=== PATIENT | female | born 1955 | race Caucasian/White ===

== ENCOUNTER → 2019-12-08 11:11 | Outpatient (BNVA) | payer MEDICARE, SELFPAY | PROVIDERS: PCP Internal Medicine; Visit Provider Orthopaedic Surgery | DX: M25.551 Pain in right hip (principal); Z96.641 Presence of right artificial hip joint; Z79.899 Other long term (current) drug therapy | CPT/HCPCS: 20610; 99214; J1100 ==

== ENCOUNTER 2019-12-10 06:27 | Day surgery (SDC) | payer MEDICARE, SELFPAY ==
[2019-12-05 09:29] VITALS: BMI 31.4
--- NOTE | 2019-12-09 08:40 | HO.ANESPROP2 ---
Documented by User: Columba Person 12/09/19 08:43 HPI - Anesthesia Eval Consult details Narrative: 64yo F for colonoscopy PMFSH Past Medical History Medical History Anxiety Arthritis Back pain Depression Elevated cholesterol Fibromyalgia GERD (gastroesophageal reflux disease) Head ache History of dysphagia History of shingles HTN (hypertension) Hx of bronchiolitis Hx of thoracic outlet syndrome Muscle spasm Surgical History Surgical History H/O excision of ganglion cyst History of right hip hemiarthroplasty History of surgery on right wrist History of total right knee replacement (TKR) Hx of colonoscopy Hx of spinal fusion Hx of tonsillectomy Social History Social History Alcohol intake: current Alcohol intake frequency: holidays/special occasions only Alcohol type: wine Smoking Status: Never smoker Use of substances other than those prescribed or required for medical reasons: No Advance Directives: No Advance Directives Information Provided: No Advance Directives on File: No Meds Allergies Allergy/AdvReac Type Severity Reaction Status Date / Time No Known Allergies Allergy Mild NONE Verified 12/08/19 11:26 Home Medications Medication Instructions Recorded Confirmed Type atorvastatin 1 tab PO DAILY 12/05/19 12/08/19 History cholecalciferol (vitamin D3) 25 mcg PO DAILY 12/05/19 12/08/19 History [Vitamin D3] diltiazem HCl 1 cap PO DAILY 12/05/19 12/08/19 History lorazepam 0.5 mg PO BID PRN 12/05/19 12/08/19 History omeprazole 20 mg PO DAILY 12/05/19 12/08/19 History paroxetine HCl 1 tab PO DAILY 12/05/19 12/08/19 History Exam Exam Date and Time: December 09, 2019 0840 Height,Weight and Vital Signs: Height 5 ft 7 in Weight 91.172 kg Pertinent Lab Results Pertinent Lab Results: Laboratory Tests 10/27/19 10/27/19 11:45 11:45 WBC 4.0 L Hgb 13.9 Hct 42.3 Plt Count 274 Sodium 141 Potassium 4.7 Chloride 106 Bicarbonate 27 BUN 14 Creatinine 0.72 Est GFR (Non-Af Amer) > 60 Assessment and Plan Assessment Anesthesia Assessment: Chart Reviewed Documented by User: Mandie Vieira 12/10/19 07:19 PMFSH Past Medical History Medical History Anxiety Arthritis Back pain Depression Elevated cholesterol Fibromyalgia GERD (gastroesophageal reflux disease) Head ache History of dysphagia History of shingles HTN (hypertension) Hx of bronchiolitis Hx of thoracic outlet syndrome Muscle spasm Surgical History Surgical History H/O excision of ganglion cyst History of right hip hemiarthroplasty History of surgery on right wrist History of total right knee replacement (TKR) Hx of colonoscopy Hx of spinal fusion Hx of tonsillectomy Social History Social History Alcohol intake: current Alcohol intake frequency: holidays/special occasions only Alcohol type: wine Smoking Status: Never smoker Use of substances other than those prescribed or required for medical reasons: No Advance Directives: No Advance Directives Information Provided: No Advance Directives on File: No Meds Allergies Allergy/AdvReac Type Severity Reaction Status Date / Time No Known Allergies Allergy Mild NONE Verified 12/08/19 11:26 Home Medications Medication Instructions Recorded Confirmed Type atorvastatin 1 tab PO DAILY 12/05/19 12/08/19 History cholecalciferol (vitamin D3) 25 mcg PO DAILY 12/05/19 12/08/19 History [Vitamin D3] diltiazem HCl 1 cap PO DAILY 12/05/19 12/08/19 History lorazepam 0.5 mg PO BID PRN 12/05/19 12/08/19 History omeprazole 20 mg PO DAILY 12/05/19 12/08/19 History paroxetine HCl 1 tab PO DAILY 12/05/19 12/08/19 History Exam Airway Mallampati Class: III TM Dist: >3cm Neck ROM: Full Heart: RRR Lungs: CTAnBL
[2019-12-10] MEDS: Lactated Ringers 1,000 ML 100 ML IVCONT (06:59)
--- NOTE | 2019-12-10 07:19 | P.CONAN_ITS ---
[facility] Past Medical History Medical History Anxiety Arthritis Back pain Depression Elevated cholesterol Fibromyalgia GERD (gastroesophageal reflux disease) Head ache History of dysphagia History of shingles HTN (hypertension) Hx of bronchiolitis Hx of thoracic outlet syndrome Muscle spasm Surgical History Surgical History H/O excision of ganglion cyst History of right hip hemiarthroplasty History of surgery on right wrist History of total right knee replacement (TKR) Hx of colonoscopy Hx of spinal fusion Hx of tonsillectomy Social History Social History Alcohol intake: current Alcohol intake frequency: holidays/special occasions only Alcohol type: wine Smoking Status: Never smoker Use of substances other than those prescribed or required for medical reasons: No Advance Directives: No Advance Directives Information Provided: No Advance Directives on File: No Meds Allergies Allergy/AdvReac Type Severity Reaction Status Date / Time No Known Allergies Allergy Mild NONE Verified 12/08/19 11:26 Home Medications Medication Instructions Recorded Confirmed Type atorvastatin 1 tab PO DAILY 12/05/19 12/08/19 History cholecalciferol (vitamin D3) 25 mcg PO DAILY 12/05/19 12/08/19 History [Vitamin D3] diltiazem HCl 1 cap PO DAILY 12/05/19 12/08/19 History lorazepam 0.5 mg PO BID PRN 12/05/19 12/08/19 History omeprazole 20 mg PO DAILY 12/05/19 12/08/19 History paroxetine HCl 1 tab PO DAILY 12/05/19 12/08/19 History Exam Exam Date and Time: December 10, [id number] Height,Weight and Vital Signs: Height 5 ft 7 in Weight 91.172 kg Assessment and Plan Assessment Anesthesia Assessment: Anesthesia Plan Discussed and Chart Reviewed Final Anesthetic Review NPO: Yes ASA Class: III Final Preanesthetic Review: No Changes in Pt Med Stat and Consent Obtained/Reviewed Patient Risk: Intermediate Procedure Risk: Low Anesthetic Plan Anesthetic Plan: MAC: Disposition: Standard PACU
--- NOTE | 2019-12-10 07:31 | MHC.SHP ---
Pre-Procedural Eval Section A The patient is an INPATIENT: No Changes since office visit: Yes Patient answered all questions; No Cold of Flu in the past 2 weeks, No New Medical Problems and No Changes in Medication The History & Physical has been completed within 30 days and I have reviewed it.: Yes Section B Chief Complaint: Colon Cancer Screening Allergies: Allergies Allergy/AdvReac Type Severity Reaction Status Date / Time No Known Allergies Allergy Mild NONE Verified 12/08/19 11:26 Plan Diagnosis/Plan: Unchanged Patient has been examined and remains a candidate for the planned procedure
[2019-12-10 08:18] VITALS: BP 111/55; PULSE 65; RESP 16; TEMP 36.6; O2SAT 97
--- NOTE | 2019-12-10 08:20 | P.OP_ITS ---
Operative Note Operative Note Narrative: Preoperative diagnosis: Colon rectal carcinoma screening Postoperative diagnosis: Diverticulosis Procedure: Colonoscopy Anesthesia: Monitored anesthesia care Estimated blood loss: None IV fluids: Per anesthesia record Immediate complications: None Specimens: None Indications this is a 64-year-old female who has no GI complaints and presents for routine screening Procedure in detail with the patient in left lateral decubitus position, time- out procedure was performed. Adequate sedation was obtained. Rectal examination was performed and was unremarkable. The flexible pediatric colonoscope was introduced and was gradually advanced through the bowel to the level of the cecum. The prep was fair to good with some solid stool and turbid liquid scattered throughout the colon. This could be irrigated away to a great extent but not completely. The cecal pouch, ileocecal valve and appendiceal orifice were inspected and appeared normal. The ileocecal valve was not intubated. The scope was slowly withdrawn, visualizing all mucosal surfaces as it was possible. The scope was retroflexed within the rectum and was then straightened and withdrawn. There was moderate diverticulosis within the sigmoid colon. No other abnormalities were identified. She tolerated the procedure well. Based upon findings, next routine colonoscopy will be due in 10 years.
[2019-12-10 08:32] VITALS: BP 128/78; PULSE 63; RESP 14; TEMP 36.6; O2SAT 99
--- NOTE | 2019-12-10 09:04 | HO.POSTANES ---
Post Anesthesia Evaluation Post Anesthesia Evaluation Vital Signs: Vital Signs Temp Pulse Resp BP Pulse Ox 12/10/19 08:32 97.8 F 63 14 128/78 99 12/10/19 08:18 97.8 F 65 16 111/55 L 97 Anesthesia: Monitored Mental Status: Awake Pain Control: Satisfactory Nausea/Vomiting: None Hydration: Adequate Anesthesia-Related Issues: No Anes. Related Issues
== END 2019-12-10 09:20 | disposition home or self-care (01) ==
PROVIDERS: PCP Internal Medicine; Visit Provider Surgery
PROC: 0DJD8ZZ Inspection of Lower Intestinal Tract, Via Natural or Artificial Opening Endoscopic (ICD-10-PCS; CPT 45378; principal; 2019-12-10 07:30)
DX: Z12.11 Encounter for screening for malignant neoplasm of colon (principal); K57.30 Diverticulosis of large intestine without perforation or abscess without bleeding; K21.9 Gastro-esophageal reflux disease without esophagitis; F32.9 Major depressive disorder, single episode, unspecified; E78.00 Pure hypercholesterolemia, unspecified; Z79.899 Other long term (current) drug therapy; Z87.891 Personal history of nicotine dependence
CPT/HCPCS: G0121

== ENCOUNTER 2019-12-26 15:12 | Outpatient (REF) | payer MEDICARE, SELFPAY | END 2019-12-26 15:13 | disposition home or self-care (01) | LOC: HO.LNP 15:12 | PROVIDERS: Visit Provider Internal Medicine | DX: Z20.828 Contact with and (suspected) exposure to other viral communicable diseases (principal) | CPT/HCPCS: U0003 ==

== ENCOUNTER 2020-04-08 12:08 | Outpatient (REF) | payer MEDICARE, SELFPAY ==
--- NOTE | ~2020-04-08 | MM_ITS ---
EXAMINATION: MM SCREENING DIGITAL BREAST TOMOSYNTHESIS, BILATERAL CLINICAL INFORMATION: Screening. Asymptomatic. The lifetime risk of breast cancer based on the Tyrer-Cuzick Model is 4.7%. COMPARISON: Mammography: November 29, 2018 and studies dating back to September 16, 2010 TECHNIQUE: Digital breast tomosynthesis is performed in both the craniocaudal and mediolateral oblique views along with computer-aided detection (CAD). Synthesized 2D images are generated from the tomosynthesis. FINDINGS: There are scattered areas of fibroglandular density (ACR BI-RADS breast composition Category b). There are no significant masses, abnormal calcifications, or other abnormalities. MM/MM tomosynthesis screening BI IMPRESSION: There are no significant changes from prior study. ASSESSMENT: BI-RADS 1: Negative RECOMMENDATION: Routine annual mammography screening. This patient's information was entered into a reminder system with a target due date for their next mammogram.
== END 2020-04-08 12:09 | disposition home or self-care (01) ==
LOC: HO.MAMMO 12:08
PROVIDERS: PCP Internal Medicine; Visit Provider Internal Medicine
DX: Z12.31 Encounter for screening mammogram for malignant neoplasm of breast (principal)
CPT/HCPCS: 77063; 77067

== ENCOUNTER 2020-04-16 10:39 | Outpatient (REF) | payer MEDICARE, SELFPAY ==
[2020-04-16 13:50] LABS: MANUAL DIFF FLAG NO
[2020-04-16 13:56] LABS: Basophils Percent Auto 1.1 % (0-2); Eosinophils Absolute Auto 0.1 X10*3/uL (0.0-0.4); Eosinophils Percent Auto 3.5 % (0-4); Hematocrit 43.4 % (37-47); Hemoglobin 14.1 g/dl (12.0-16.0); Imm Gran Abs Auto 0.01 X10*3/uL (0.00-0.03); Imm Gran Pct Auto 0.3 % (0.0-0.4); Lymphocytes Absolute Auto 1.2 X10*3/uL (1.2-4.9); Lymphocytes Percent Auto 31.4 % (20-40); Mean Corpuscular HGB Conc 32.5 g/dl (31.0-35.0); Mean Corpuscular Hemoglobin 29.9 pg (27.0-33.0); Mean Corpuscular Volume 92.1 fL (80-98); Mean Platelet Volume 11.8 fL (9.4-12.3); Monocytes Absolute Auto 0.3 X10*3/uL (0.1-1.2); Monocytes Percent Auto 8.6 % (2-11); Neutrophils Absolute Auto 2.1 X10*3/uL (2.0-8.3); Neutrophils Percent Auto 55.1 % (45-73); Platelet Count 281 X10*3/uL (160-400); Red Blood Count 4.71 X10*6/uL (4.20-5.50); Red Cell Distribution Width 12.9 % (11.0-16.0); White Blood Count 3.7 X10*3/uL (4.8-10.8)
[2020-04-16 14:36] LABS: Alanine Aminotransferase 19 U/L (0-31); Alkaline Phosphatase 71 U/L (39-117); Anion Gap 11 (12-20); Aspartate Amino Transferase 14 U/L (5-31); Bilirubin Total 0.6 mg/dL (0.0-1.0); Blood Urea Nitrogen 17 mg/dL (9-16); Calcium 8.8 mg/dL (8.4-10.2); Carbon Dioxide 28 mmol/L (22-29); Chloride 106 mmol/L (96-108); Cholesterol 191 mg/dL; Estimated Glomerular Filt Rate > 60; Glucose Fasting 78 mg/dL (60-99); HDL Cholesterol 59 mg/dL; LDL Cholesterol Calculated 118 mg/dl; Potassium 4.4 mmol/L (3.3-5.1); Sodium 141 mmol/L (135-145); Total Protein 6.8 g/dL (6.5-8.0); Triglycerides 74 mg/dL
== END 2020-04-16 10:40 | disposition home or self-care (01) ==
LOC: HO.HMGCLDS 10:39
PROVIDERS: PCP Internal Medicine; Visit Provider Internal Medicine
DX: I10 Essential (primary) hypertension (principal); E78.00 Pure hypercholesterolemia, unspecified; K21.9 Gastro-esophageal reflux disease without esophagitis; M85.80 Other specified disorders of bone density and structure, unspecified site
CPT/HCPCS: 36415; 80053; 80061; 85025

== ENCOUNTER 2020-04-19 12:22 | Outpatient (REF) | payer MEDICARE, SELFPAY ==
--- NOTE | ~2020-04-19 | XR_ITS ---
EXAMINATION: XR PELVIS CLINICAL INFORMATION: Unspecified hip pain COMPARISON: AP pelvis 12/19/2018 TECHNIQUE: AP view of the pelvis. FINDINGS: There is a total right hip prosthesis with prosthetic components in satisfactory alignment. The SI joints are symmetrical and normal. The left hip joint space is unremarkable. There is no visible fracture, dislocation or subluxation seen. There are bilateral pedicular screws in the lower lumbar spine, likely for fusion. The soft tissues are normal. XR/XR pelvis 1-2V IMPRESSION: Total right hip prosthesis in satisfactory alignment.
== END 2020-04-19 12:23 | disposition home or self-care (01) ==
LOC: HO.HOSX 12:22
PROVIDERS: Visit Provider Orthopaedic Surgery
DX: T84.84XA Pain due to internal orthopedic prosthetic devices, implants and grafts, initial encounter (principal); R10.30 Lower abdominal pain, unspecified; Z96.641 Presence of right artificial hip joint
CPT/HCPCS: 72170; 99212

== ENCOUNTER → 2020-05-17 09:53 | Outpatient (BNVA) | payer MEDICARE, SELFPAY | PROVIDERS: Visit Provider Orthopaedic Surgery | DX: Z01.812 Encounter for preprocedural laboratory examination (principal); Z01.810 Encounter for preprocedural cardiovascular examination ==

== ENCOUNTER → 2020-06-10 13:31 | Outpatient (BNVA) | payer MEDICARE, SELFPAY | PROVIDERS: PCP Internal Medicine; Visit Provider Physician Assistant | DX: Z01.818 Encounter for other preprocedural examination (principal); Z96.641 Presence of right artificial hip joint | CPT/HCPCS: 99212 ==

== ENCOUNTER 2020-06-15 07:43 | Inpatient (IN) | payer MEDICARE, SELFPAY ==
--- NOTE | 2020-05-19 09:37 | ECG_ITS ---
Test Reason : PREPROC EXAM Blood Pressure : / mmHG Vent. Rate : 072 BPM Atrial Rate : 072 BPM P-R Int : 156 ms QRS Dur : 086 ms QT Int : 374 ms P-R-T Axes : 056 -40 030 degrees QTc Int : 409 ms Normal sinus rhythm Left axis deviation Abnormal ECG When compared with ECG of 02-JUL-2018 10:55, Premature ventricular complexes are no longer Present Referred By: Hector Castellon Electronically Signed By:WENCESLAO SOLIS MD
[2020-05-19 10:03] LABS: MANUAL DIFF FLAG NO
[2020-05-19 10:14] LABS: Basophils Percent Auto 0.9 % (0-2); Eosinophils Absolute Auto 0.2 X10*3/uL (0.0-0.4); Eosinophils Percent Auto 4.9 % (0-4); Hematocrit 43.9 % (37-47); Hemoglobin 14.2 g/dl (12.0-16.0); Imm Gran Abs Auto 0.02 X10*3/uL (0.00-0.03); Imm Gran Pct Auto 0.4 % (0.0-0.4); Lymphocytes Absolute Auto 1.2 X10*3/uL (1.2-4.9); Lymphocytes Percent Auto 27.9 % (20-40); Mean Corpuscular HGB Conc 32.3 g/dl (31.0-35.0); Mean Corpuscular Hemoglobin 29.7 pg (27.0-33.0); Mean Corpuscular Volume 91.8 fL (80-98); Mean Platelet Volume 11.3 fL (9.4-12.3); Monocytes Absolute Auto 0.5 X10*3/uL (0.1-1.2); Monocytes Percent Auto 10.6 % (2-11); Neutrophils Absolute Auto 2.5 X10*3/uL (2.0-8.3); Neutrophils Percent Auto 55.3 % (45-73); Platelet Count 285 X10*3/uL (160-400); Red Blood Count 4.78 X10*6/uL (4.20-5.50); Red Cell Distribution Width 13.2 % (11.0-16.0); White Blood Count 4.5 X10*3/uL (4.8-10.8)
[2020-05-19 10:39] LABS: Anion Gap 13 (12-20); Carbon Dioxide 29 mmol/L (22-29); Chloride 105 mmol/L (96-108); Estimated Glomerular Filt Rate > 60; Glucose Random 72 mg/dL (60-115); Potassium 4.9 mmol/L (3.3-5.1); Sodium 142 mmol/L (135-145)
[2020-05-19 10:52] LABS: Blood Urea Nitrogen 19 mg/dL (9-16); Calcium 9.5 mg/dL (8.4-10.2)
[2020-06-11 11:51] VITALS: BMI 32.3
[2020-06-11 12:17] VITALS: BP 137/84; PULSE 76; RESP 20; O2SAT 98
--- NOTE | 2020-06-11 12:19 | P.CONAN_ITS ---
Documented by User: Columba Person 06/14/20 08:59 HPI - Anesthesia Eval Consult details Narrative: 64yo F for Right Hip Total Replacement PCP cleared [facility] Active Problems Active Problems: All Active Problems (Updated 12/05/19 @ 09:29 by Franca Merino) History of right hip hemiarthroplasty (Acute) Past Medical History Medical History (Updated 06/11/20 @ 12:20 by Franca Merino) Anxiety Arthritis Back pain COVID-19 vaccine series completed Depression Elevated cholesterol Fibromyalgia GERD (gastroesophageal reflux disease) Head ache History of dysphagia History of shingles HTN (hypertension) Hx of bronchiolitis Hx of thoracic outlet syndrome Muscle spasm Family History Family history of problems with anesthesia: No Surgical History Surgical History (Updated 06/11/20 @ 12:22 by Franca Merino) H/O excision of ganglion cyst History of right hip hemiarthroplasty History of surgery on right wrist History of total right knee replacement (TKR) Hx of arthroscopy of right knee Hx of colonoscopy Hx of spinal fusion Hx of tonsillectomy History of Problems with Anesthesia: No Social History Social History Are you a primary healthcare network pricing consultant to a significant other at home: No Do you presently have visiting nurse or other home services: No Alcohol intake: current Alcohol intake frequency: a few times a month Alcohol type: wine Smoking Status: Never smoker Second Hand Smoke Exposure: No Use of substances other than those prescribed or required for medical reasons: No Have you been hit, kicked, punched, or otherwise hurt by someone within the past year? If so, by whom?: No Are you DNR?: No Advance Directives: No Advance Directives Information Provided: No Advance Directives on File: No Recently lost weight without trying: No Eating poorly because of decreased appetite: No Nutrition Risks: No Nutritional Risk Patient : No Narrative Narrative: No recent illness. No CP or SOB with activity within limits of pain. Meds Allergies Allergy/AdvReac Type Severity Reaction Status Date / Time No Known Allergies Allergy Mild NONE Verified 06/10/20 13:42 Home Medications Medication Instructions Recorded Confirmed Last Taken Type atorvastatin 1 tab PO DAILY 12/05/19 06/11/20 12/09/19 History cholecalciferol (vitamin D3) 25 mcg PO DAILY 12/05/19 06/11/20 12/09/19 History [Vitamin D3] diltiazem HCl 1 cap PO DAILY 12/05/19 06/11/20 06/15/20 History lorazepam 0.5 mg PO BID PRN 12/05/19 06/11/20 06/15/20 History omeprazole 20 mg PO DAILY PRN 12/05/19 06/11/20 12/09/19 History paroxetine HCl 1 tab PO DAILY 12/05/19 06/15/20 06/15/20 History Exam Exam Date and Time: June 11, 2020 1219 Height,Weight and Vital Signs: Height 5 ft 6 in Weight 90.718 kg Last Vital Signs Pulse 76 06/11/20 12:17 Resp 20 06/11/20 12:17 BP 137/84 06/11/20 12:17 Pulse Ox 98 06/11/20 12:17 Pertinent Lab Results Pertinent Lab Results: Laboratory Tests 05/19/20 05/19/20 09:31 09:31 WBC 4.5 L RBC 4.78 Hgb 14.2 Hct 43.9 MCV 91.8 MCH 29.7 MCHC 32.3 RDW 13.2 Plt Count 285 MPV 11.3 Immature Gran % (Auto) 0.4 Neut % (Auto) 55.3 Lymph % (Auto) 27.9 [place] % (Auto) 10.6 Eos % (Auto) 4.9 H Baso % (Auto) 0.9 Lymph # (Auto) 1.2 [place] # (Auto) 0.5 Eos # (Auto) 0.2 Baso # (Auto) 0.0 Abs Immat Gran (auto) 0.02 Absolute Neuts (auto) 2.5 Absolute Nucleated RBC 0.000 Nucleated RBC % (auto) 0.0 Sodium 142 Potassium 4.9 Chloride 105 Carbon Dioxide 29 Anion Gap 13 BUN 19 H Creatinine 0.75 Estim Creat Clear Calc TNP Estimated GFR > 60 Random Glucose 72 Calcium 9.5 D Lab Results 05/19/20 05/19/20 06/11/20 Range/Units 09:31 09:31 13:20 WBC 4.5 L (4.8-10.8) X10*3/uL RBC 4.78 (4.20-5.50) X10*6/uL Hgb 14.2 (12.0-16.0) g/dl Hct 43.9 (37-47) % MCV 91.8 (80-98) fL MCH 29.7 (27.0-33.0) pg MCHC 32.3 (31.0-35.0) g/dl RDW 13.2 (11.0-16.0) % Plt Count 285 (160-400) X10*3/uL MPV 11.3 (9.4-12.3) fL Immature Gran % (Auto) 0.4 (0.0-0.4) % Neut % (Auto) 55.3 (45-73) % Lymph % (Auto) 27.9 (20-40) % [place] % (Auto) 10.6 (2-11) % Eos % (Auto) 4.9 H (0-4) % Baso % (Auto) 0.9 (0-2) % Lymph # (Auto) 1.2 (1.2-4.9) X10*3/uL [place] # (Auto) 0.5 (0.1-1.2) X10*3/uL Eos # (Auto) 0.2 (0.0-0.4) X10*3/uL Baso # (Auto) 0.0 (0.0-0.2) X10*3/uL Abs Immat Gran (auto) 0.02 (0.00-0.03) X10*3/uL Absolute Neuts (auto) 2.5 (2.0-8.3) X10*3/uL Absolute Nucleated RBC 0.000 (0.0-0.012) X10*3/uL Nucleated RBC % (auto) 0.0 (0.0-0.2) /100WBC Sodium 142 (135-145) mmol/L Potassium 4.9 (3.3-5.1) mmol/L Chloride 105 (96-108) mmol/L Carbon Dioxide 29 (22-29) mmol/L Anion Gap 13 (12-20) BUN 19 H (9-16) mg/dL Creatinine 0.75 (0.5-1.4) mg/dL Estim Creat Clear Calc TNP Estimated GFR > 60 Random Glucose 72 (60-115) mg/dL Calcium 9.5 D (8.4-10.2) mg/dL Nasal Screen MRSA (PCR) (Negative) Nasal S. aureus Screen (Negative) Nasal MRSA/S.aureus Interp Blood Type O Positive Antibody Screen NEGATIVE 06/11/20 Range/Units Unknown WBC (4.8-10.8) X10*3/uL RBC (4.20-5.50) X10*6/uL Hgb (12.0-16.0) g/dl Hct (37-47) % MCV (80-98) fL MCH (27.0-33.0) pg MCHC (31.0-35.0) g/dl RDW (11.0-16.0) % Plt Count (160-400) X10*3/uL MPV (9.4-12.3) fL Immature Gran % (Auto) (0.0-0.4) % Neut % (Auto) (45-73) % Lymph % (Auto) (20-40) % [place] % (Auto) (2-11) % Eos % (Auto) (0-4) % Baso % (Auto) (0-2) % Lymph # (Auto) (1.2-4.9) X10*3/uL [place] # (Auto) (0.1-1.2) X10*3/uL Eos # (Auto) (0.0-0.4) X10*3/uL Baso # (Auto) (0.0-0.2) X10*3/uL Abs Immat Gran (auto) (0.00-0.03) X10*3/uL Absolute Neuts (auto) (2.0-8.3) X10*3/uL Absolute Nucleated RBC (0.0-0.012) X10*3/uL Nucleated RBC % (auto) (0.0-0.2) /100WBC Sodium (135-145) mmol/L Potassium (3.3-5.1) mmol/L Chloride (96-108) mmol/L Carbon Dioxide (22-29) mmol/L Anion Gap (12-20) BUN (9-16) mg/dL Creatinine (0.5-1.4) mg/dL Estim Creat Clear Calc Estimated GFR Random Glucose (60-115) mg/dL Calcium (8.4-10.2) mg/dL Nasal Screen MRSA (PCR) NEGATIVE (Negative) Nasal S. aureus Screen NEGATIVE (Negative) Nasal MRSA/S.aureus Interp SEE NOTE Blood Type Antibody Screen Narrative Narrative: EKG 05/2020 Vent. Rate : 072 BPM Atrial Rate : 072 BPM P-R Int : 156 ms QRS Dur : 086 ms QT Int : 374 ms P-R-T Axes : 056 -40 030 degrees QTc Int : 409 ms Normal sinus rhythm Left axis deviation Abnormal ECG When compared with ECG of 02-JUL-2018 10:55, Premature ventricular complexes are no longer Present Airway Mallampati Class: II TM Dist: >3cm Neck ROM: Full Partial: Lower (Doesn't wear) Loose/Missing/Broken Teeth: Yes (Upper molars implants) Heart: RRR Lungs: CTAB Assessment and Plan Assessment Anesthesia Assessment: Anesthesia Plan Discussed and PAT Visit Documented by User: Carli Moore 06/15/20 10:57 PMFSH Past Medical History Medical History (Updated 06/11/20 @ 12:20 by Franca Merino) Anxiety Arthritis Back pain COVID-19 vaccine series completed Depression Elevated cholesterol Fibromyalgia GERD (gastroesophageal reflux disease) Head ache History of dysphagia History of shingles HTN (hypertension) Hx of bronchiolitis Hx of thoracic outlet syndrome Muscle spasm Surgical History Surgical History (Updated 06/11/20 @ 12:22 by Franca Merino) H/O excision of ganglion cyst History of right hip hemiarthroplasty History of surgery on right wrist History of total right knee replacement (TKR) Hx of arthroscopy of right knee Hx of colonoscopy Hx of spinal fusion Hx of tonsillectomy Social History Social History Are you a primary healthcare network pricing consultant to a significant other at home: No Do you presently have visiting nurse or other home services: No Alcohol intake: current Alcohol intake frequency: a few times a month Alcohol type: wine Smoking Status: Never smoker Second Hand Smoke Exposure: No Use of substances other than those prescribed or required for medical reasons: No Have you been hit, kicked, punched, or otherwise hurt by someone within the past year? If so, by whom?: No Are you DNR?: No Advance Directives: No Advance Directives Information Provided: No Advance Directives on File: No Recently lost weight without trying: No Eating poorly because of decreased appetite: No Nutrition Risks: No Nutritional Risk Patient : No Meds Allergies Allergy/AdvReac Type Severity Reaction Status Date / Time No Known Allergies Allergy Mild NONE Verified 06/10/20 13:42 Home Medications Medication Instructions Recorded Confirmed Last Taken Type atorvastatin 1 tab PO DAILY 12/05/19 06/11/20 12/09/19 History cholecalciferol (vitamin D3) 25 mcg PO DAILY 12/05/19 06/11/20 12/09/19 History [Vitamin D3] diltiazem HCl 1 cap PO DAILY 12/05/19 06/11/20 06/15/20 History lorazepam 0.5 mg PO BID PRN 12/05/19 06/11/20 06/15/20 History omeprazole 20 mg PO DAILY PRN 12/05/19 06/11/20 12/09/19 History paroxetine HCl 1 tab PO DAILY 12/05/19 06/15/20 06/15/20 History Exam Height,Weight and Vital Signs: Vital Signs Temp Pulse Resp BP Pulse Ox 06/15/20 08:10 98.2 F 76 16 127/78 96 Pertinent Lab Results Pertinent Lab Results: Laboratory Results - last 24 hr 06/15/20 07:44 COVID-19 (GONZÁLEZ) Negative COVID-19 Clin Com See Note Airway Mallampati Class: III (Significant overbute) TM Dist: >3cm Neck ROM: Full Partial: Upper Heart: RRR Lungs: CTAB Assessment and Plan Assessment Anesthesia Assessment: Anesthesia Plan Discussed and Chart Reviewed Final Anesthetic Review NPO: Yes ASA Class: II Final Preanesthetic Review: No Changes in Pt Med Stat, Meds/Allgs Chart Reviewed, Consent Obtained/Reviewed and Anes Risks/Benef Reviewed Patient Risk: Low Procedure Risk: Intermediate Assessment/Block/Sedation in SS: Assess/Block/Sedation-SS Anesthetic Plan Anesthetic Plan: GA Disposition: Inp. Admit - Standard Bed
[2020-06-11 14:55] LABS: MRSA Nasal PCR NEGATIVE (Negative); SA Nasal PCR NEGATIVE (Negative)
--- NOTE | 2020-06-11 17:09 | HP_ITS ---
DATE OF SERVICE: 06/15/2020 HISTORY OF PRESENT ILLNESS: The patient is a 64-year-old female who is seen in the office for preop evaluation on 06/02/2020, prior to right total hip replacement scheduled with Dr. Castellon on June 15. She feels well, has some occasional leg cramps. PAST MEDICAL HISTORY: Significant for hypertension; gastroesophageal reflux disease; anxiety; low vitamin D; elevated cholesterol; varicose veins; osteopenia; back pain; shoulder pain; right knee surgery x4 in the past; back surgery with triple fusion at L4, L5, and S1; fibromyalgia; ganglion on left wrist; in the past; T and A in the past; decompression of thoracic outlet syndrome. FAMILY HISTORY: Please see old records. She has one sister who has COPD. SOCIAL HISTORY: She is , retired, has 4 children in good health. REVIEW OF SYSTEMS: Weight is up 5 pounds. No fevers or chills. No headaches or dizziness. No palpitations or chest pain. Some mild dyspnea with exertion. No wheezing or cough. Some heartburn. No abdominal pain. No dysuria. Chronic right hip pain. Chronic low back pain. Sleep is sometimes interrupted by the joint pain. Appetite is good. No complaints of seasonal allergies. No skin complaints. ALLERGIES: SHE HAS NO COMPLAINTS OF ALLERGIES TO MEDICINES. MEDICATIONS: Present medications are diltiazem CD 120 once a day, Lasix 20 mg a day, paroxetine 20 mg a day, Prilosec 20 mg a day, vitamin D 1000 a day, Lipitor 10 mg a day, lorazepam 0.5 mg p.o. b.i.d. p.r.n. PHYSICAL EXAMINATION: GENERAL: She is awake and alert, in no distress. VITAL SIGNS: Temperature is 98.5, pulse 74, respirations , blood pressure 114/76, O2 saturation 95%. Weight is 207, height is 5 feet 5 inches. HEENT: Pupils equal. TMs clear. Pharynx clear. NECK: Supple. No lymph nodes, bruits, or masses. HEART: Sounds S1 and S2. Regular rate and rhythm. LUNGS: Clear. ABDOMEN: Soft, nontender. Positive bowel sounds. No HSM. EXTREMITIES: No clubbing, cyanosis, or edema. 1+ pulses. NEUROLOGIC: Nonfocal. Cranial nerves II through XII are intact. LABORATORY DATA: EKG was done in the hospital on April 20. Labs were done May 19. Normal lytes, BUN, and creatinine. Sugar 72, calcium 9.5, and CBCs normal. ASSESSMENT AND PLAN: She is medically stable for the proposed procedure. I will be available if there are any medical issues or questions. Manny Ma MD FC/JOYCEL / [phone]
[2020-06-15] VITALS (14 sets, daily range): BP systolic 104–128; BP diastolic 60–78; PULSE 65–87; RESP 12–19; TEMP 36.3–36.8; O2SAT 94–99
--- NOTE | ~2020-06-15 | XR_ITS ---
EXAMINATION: XR PELVIS CLINICAL INFORMATION: Right hip replacement COMPARISON: Previous x-ray April 2020 TECHNIQUE: AP view of the pelvis. FINDINGS: There is a new right hip replacement in satisfactory position. No fracture or dislocation is seen. The left hip joint is normal appearing. There are postoperative changes to the soft tissues. XR/XR pelvis 1-2V IMPRESSION: Satisfactory appearance of right hip replacement.
[2020-06-15] MEDS: oxyCODONE HCl ER 10 MG TAB.ER.12H PO (08:07)
[2020-06-15] MEDS: Gabapentin 600 MG TABLET PO (08:07)
[2020-06-15 08:34] LABS: COVID-19 Test Negative (Negative); IDNOW Serial# 9DD0AD1C
[2020-06-15] MEDS: Lactated Ringers 1,000 ML 100 ML IVCONT (08:37)
--- NOTE | 2020-06-15 09:23 | MHC.SHP ---
Pre-Procedural Eval Section A The patient is an INPATIENT: No Changes since office visit: Yes Patient answered all questions; No Cold of Flu in the past 2 weeks, No New Medical Problems and No Changes in Medication The History & Physical has been completed within 30 days and I have reviewed it.: Yes Section B Chief Complaint: RIGHT TOTAL HIP ARTHROPLASTY Allergies: Allergies Allergy/AdvReac Type Severity Reaction Status Date / Time No Known Allergies Allergy Mild NONE Verified 06/10/20 13:42 Plan I have reviewed the history and physical and performed a pertinent physical examination on my patient. No changes have occurred unless specified.
--- NOTE | 2020-06-15 11:39 | P.BOP_ITS ---
Brief Operative Note Date of Service: 06/15/20 Pre-op diagnosis: left hip hemiarthroplasty Post-op diagnosis: same Procedure: revision left hip hemiarthroplsaty to JESÚS Implants: Falcon trident2 +5 MDM Surgeon: Hector Castellon MD Anesthesia: GETA and local Was an Retail Cashier Associate used for this Procedure?: Yes Retail Cashier Associate: Pranav Lopez Estimated blood loss (mL): 150 IV fluids (mL): 1,000 Pathology: none sent Condition: stable Disposition: PACU
--- NOTE | 2020-06-15 11:41 | W.PM.OPN ---
Operative Note Operative Note Date of Service: 06/15/20 Narrative: Date of Service: 06/15/20 Pre-op diagnosis: left hip hemiarthroplasty Post-op diagnosis: same Procedure: revision left hip hemiarthroplsaty to JESÚS Implants: [place] trident2 +5 [facility] Surgeon: Hector Castellon MD Anesthesia: GETA and local Was an Retention Representative used for this Procedure?: Yes Retention Representative: Pranav Lopez Estimated blood loss (mL): 150 IV fluids (mL): 1,000 Pathology: none sent Condition: stable Disposition: PACU Attending MD: Hector Castellon Retention Representative: OMA Lopez Pre-operative disgnosis: Left hip OA Post op diagnosis: same Procedure performed; Left JESÚS Anesthesia: Blood loss: Fluids: Implants: Complications: Indications: Procedure in detail: Patient was brought into the operating room and placed in a right lateral decubitus position. All bony prominences were well padded and the limb was prepped and draped in standard sterile fashion. Time-out was called to identify proper site procedure proper surgeon IV antibiotics and 1 g of trans to make acid were administered. I began by making a curvilinear incision over the prior posterolateral incision. Dissection was taken down to the tensor fascia which was incised in line with the incision and a Charnley retractor was placed. Hip was internally rotated and the prosthetic neck was identified. There was no capsular attachments. Cautery was used to remove abundant fibrous tissue and a Dull Hohmann retractor was placed underneath the neck in the hip was dislocated. I placed my anterior-posterior acetabular retractors and continued to resect the scar tissue obstructing access to the acetabulum. I was able to rotate the femoral neck out of the way and used a offset reamed to medialize to the inner table. I then sequentially reamed up to a size _50__ and impacted a __50 cup at approximately 45 degrees of inclination and 25 degrees of version and then placed an MDM__ liner. I then trialed a +0 and +5 and the +5 was stable with appropriate length. The final implants were then placed and the hip was reduced. There was no evidence of infection or loosening of the femoral component. I then irrigated for 3 minutes with iodine and placed 1 g of local TXA. I then performed a capsular closure with FiberWire, Kevin's fascia with 0 Vicryl, subcuticular with 2-0 vicryl and skin with radha. Patient was placed into a sterile dressing. Radiographs were obtained at the completion of the case and I was satisfied with the component position. Patient was extubated brought to the recovery room in stable condition.
[2020-06-15] MEDS: Dextrose 5 % and 0.45 % NaCl 1,000 ML 80 ML IVCONT (14:31)
[2020-06-15] MEDS: 0.9 % Sodium Chloride Flush 3 ML SYRINGE IVFLUSH (14:32)
[2020-06-15] MEDS: ceFAZolin Sodium/Dextrose,Iso 2 GM/50 ML PIGGYBACK IV ×2 (14:32→15:00)
--- NOTE | 2020-06-15 14:39 | P.CONIM_ITS ---
History of Present Illness Data of Consult Service Date: 06/15/20 Requesting physician: Hector Castellon Primary Care Provider: Oscar Ma MD [facility] Reason for consult: medical evaluation post op 64 year female with HTN, HLD, anxiety who underwent right total hip arthroplasty with Dr. Castellon. She underwent a Right hip hemiarthroplasty due to a femoral neck fracture in 2019 and continued to have pain and difficulty with ambulation and afecting her quality of life and therefore went JESÚS today and did well with surgery. Review of Systems Review of Systems: Gen: no fever Resp: no sob, no cough CV: no chest, no LARA, no leg edema GI: No n/v, no abd pain Neuro: No confusion MSK: hip pain with movment PMFSH Medical History (Updated 06/15/20 @ 14:49 by Aquiles Roper MD) Anxiety Arthritis Back pain COVID-19 vaccine series completed Depression Elevated cholesterol Fibromyalgia GERD (gastroesophageal reflux disease) Head ache History of dysphagia History of shingles HTN (hypertension) Hx of bronchiolitis Hx of thoracic outlet syndrome Muscle spasm Family history: reviewed and not pertinent Surgical History H/O excision of ganglion cyst History of right hip hemiarthroplasty History of surgery on right wrist History of total right knee replacement (TKR) Hx of arthroscopy of right knee Hx of colonoscopy Hx of spinal fusion Hx of tonsillectomy Social History Are you a primary care clinician to a significant other at home: No Do you presently have visiting nurse or other home services: No Alcohol intake: current Alcohol intake frequency: a few times a month Alcohol type: wine Smoking Status: Never smoker Second Hand Smoke Exposure: No Use of substances other than those prescribed or required for medical reasons: No Have you been hit, kicked, punched, or otherwise hurt by someone within the past year? If so, by whom?: No Are you DNR?: No Advance Directives: No Advance Directives Information Provided: No Advance Directives on File: No Recently lost weight without trying: No Eating poorly because of decreased appetite: No Nutrition Risks: No Nutritional Risk Patient : No Meds Allergies Allergy/AdvReac Type Severity Reaction Status Date / Time No Known Allergies Allergy Mild NONE Verified 06/10/20 13:42 Active Medications: Current Medications Generic Name Dose Route Start Last Admin Trade Name Freq PRN Reason Stop Dose Admin Acetaminophen 650 mg 06/15/20 14:02 Acetaminophen 325 Mg Tablet PO Q6H PRN Pain, Mild (Pain Scale 1-3) Celecoxib 200 mg 06/15/20 21:00 Celecoxib 200 Mg Capsule PO BID [facility] Docusate Sodium 100 mg 06/15/20 21:00 Docusate Sodium 100 Mg Capsule PO BID [facility] Hydromorphone HCl 0.25 mg 06/15/20 14:02 Hydromorphone Hcl 0.5 Mg/0.5 Ml Syringe IVPUSH Q4H PRN Pain, Severe (Pain Scale 7-10) Cefazolin Sodium/Dextrose 2 gm in 50 mls @ 100 mls/hr 06/15/20 15:00 06/15/20 14:32 Ancef IV 06/15/20 15:29 100 mls/hr POSTOP ONE Administration Dextrose/Sodium Chloride 1,000 mls @ 80 mls/hr 06/15/20 14:02 06/15/20 14:31 D51/2ns IVCONT 80 mls/hr .[id number] WILLIE Administration Naloxone HCl 0.2 mg 06/15/20 14:02 Naloxone Hcl 0.4 Mg/Ml Vial IVPUSH Q2M PRN Excessive sedation or RR < 8 Ondansetron HCl 4 mg 06/15/20 14:02 Ondansetron Hcl 4 Mg/2 Ml Vial IVPUSH Q8H PRN Nausea and Vomiting Oxycodone HCl 5 mg 06/15/20 14:02 Oxycodone Hcl Immed Release 5 Mg Tablet PO Q4H PRN Pain, Moderate (Pain Scale 4-6 Oxycodone HCl 20 mg 06/15/20 21:00 Oxycodone Hcl Er 10 Mg Tab.Er.12h PO BID WILLIE Sodium Chloride 3 ml 06/15/20 16:00 06/15/20 14:32 0.9 % Sodium Chloride Flush 3 Ml Syringe IVFLUSH 3 ml QSHIFT WILLIE Administration Home Medications Medication Instructions Recorded Confirmed Last Taken Type atorvastatin 1 tab PO DAILY 12/05/19 06/11/20 12/09/19 History cholecalciferol (vitamin D3) 25 mcg PO DAILY 12/05/19 06/11/20 12/09/19 History [Vitamin D3] diltiazem HCl 1 cap PO DAILY 12/05/19 06/11/20 06/15/20 History lorazepam 0.5 mg PO BID PRN 12/05/19 06/11/20 06/15/20 History omeprazole 20 mg PO DAILY PRN 12/05/19 06/11/20 12/09/19 History paroxetine HCl 1 tab PO DAILY 12/05/19 06/15/20 06/15/20 History Physical Exam Vital Signs and Narrative: Vital Signs: Last Vital Signs Temp 97.3 F 06/15/20 14:02 Pulse 68 06/15/20 14:02 Resp 19 06/15/20 14:02 BP 117/61 06/15/20 14:02 Pulse Ox 95 06/15/20 14:02 Body Mass Index 32.3 Results Labs CBC and Chem 7: 05/19/20 09:31 05/19/20 09:31 Labs: Laboratory Results - last 24 hr 06/15/20 07:44 COVID-19 (GON[facility]LE[facility]) Negative COVID-19 Clin Com See Note Imaging Radiologist's Impressions: Impressions Pelvis X-Ray 06/15/20 09:43 IMPRESSION: Satisfactory appearance of right hip replacement. Assessment and Plan (1) History of right hip hemiarthroplasty: Problem details: 06/2018- Dr. Castellon Status: Acute 64/F with HTN, HLD, anxiety now s/p Right JESÚS s/p JESÚS--management per surgery included pain, managment, DVT prophylaxis. Should have PT/OT HTN--continue Diltiazem HLD--Lipitor Anxiety--Ativan, paroxetine
[2020-06-15] MEDS: oxyCODONE HCl Immed Release 5 MG TABLET PO (17:40)
[2020-06-15] MEDS: Acetaminophen 325 MG TABLET 650 MG PO (17:41)
[2020-06-15] MEDS: oxyCODONE HCl ER 10 MG TAB.ER.12H 20 MG PO (21:06)
[2020-06-15] MEDS: Docusate Sodium 100 MG CAPSULE PO (21:06)
[2020-06-15] MEDS: Celecoxib 200 MG CAPSULE PO (21:06)
[2020-06-16] VITALS (8 sets, daily range): BP systolic 102–116; BP diastolic 61–71; PULSE 60–70; RESP 16–18; TEMP 36.2–36.8; O2SAT 96–98
[2020-06-16] MEDS: Dextrose 5 % and 0.45 % NaCl 1,000 ML 80 ML IVCONT ×2 (02:47→16:09)
[2020-06-16 06:06] LABS: MANUAL DIFF FLAG NO
[2020-06-16 06:43] LABS: Basophils Percent Auto 0.1 % (0-2); Eosinophils Percent Auto 0.1 % (0-4); Hematocrit 37.3 % (37-47); Hemoglobin 11.9 g/dl (12.0-16.0); Imm Gran Abs Auto 0.04 X10*3/uL (0.00-0.03); Imm Gran Pct Auto 0.4 % (0.0-0.4); Lymphocytes Absolute Auto 0.8 X10*3/uL (1.2-4.9); Mean Corpuscular HGB Conc 31.9 g/dl (31.0-35.0); Mean Corpuscular Hemoglobin 29.9 pg (27.0-33.0); Mean Corpuscular Volume 93.7 fL (80-98); Mean Platelet Volume 11.8 fL (9.4-12.3); Monocytes Absolute Auto 0.8 X10*3/uL (0.1-1.2); Monocytes Percent Auto 7.6 % (2-11); Neutrophils Absolute Auto 8.9 X10*3/uL (2.0-8.3); Neutrophils Percent Auto 83.8 % (45-73); Platelet Count 251 X10*3/uL (160-400); Red Blood Count 3.98 X10*6/uL (4.20-5.50); Red Cell Distribution Width 13.3 % (11.0-16.0); White Blood Count 10.6 X10*3/uL (4.8-10.8)
[2020-06-16 06:51] LABS: Anion Gap 11 (12-20); Blood Urea Nitrogen 10 mg/dL (9-16); Calcium 8.3 mg/dL (8.4-10.2); Carbon Dioxide 28 mmol/L (22-29); Chloride 106 mmol/L (96-108); Creatinine Clr Calc Pharmacy 94.9; Estimated Glomerular Filt Rate > 60; Glucose Fasting 134 mg/dL (60-99); Potassium 4.6 mmol/L (3.3-5.1); Sodium 140 mmol/L (135-145)
--- NOTE | 2020-06-16 07:42 | PM.PNORT ---
Subjective Subjective Date of Service: 06/16/20 Interval history: POD1 s/p LTHA conversion from hemiarthroplasty due to fracture 06/15/[address] Castellon. No overnight events. Patient is resting comfortably in bed. Pain is well managed. Deneis SOB, chest pain, abd pain. Physical Exam Vital Signs: Vital Signs: Last Vital Signs Temp 97.2 F 06/16/20 03:00 Pulse 66 06/16/20 03:00 Resp 16 06/16/20 03:00 BP 102/63 06/16/20 03:00 Pulse Ox 96 06/16/20 03:00 Body Mass Index 32.3 Const: General: cooperative, healthy appearing and no acute distress Resp: Effort & Inspection: normal respiratory effort and able to speak in complete sentences Cardio: Rate: regular rate Peripheral pulses: Peripheral pulses 2+ throughout GI: Palpation (GI): Soft to palpation Skin: Lesions: no lesions Rashes: no rashes Extrem: Other: Right hip no ecchymosis, redness, or edema. Aquacel is celan, dry, and intact. NVI. Progress Note: A&P Assessment and plan (1) S/P total hip arthroplasty: Status: Acute Assessment and Plan: Continue pain mgmnt Begin ASA for dvt ppx Continue PT for Right JESÚS Dispo planning-PT and pain mgmnt Fall Risk Details Current Medications: Current Medications Generic Name Dose Route Start Last Admin Trade Name Freq PRN Reason Stop Dose Admin Acetaminophen 650 mg 06/15/20 14:02 06/15/20 17:41 Acetaminophen 325 Mg Tablet PO 650 mg Q6H PRN Administration Pain, Mild (Pain Scale 1-3) Celecoxib 200 mg 06/15/20 21:00 06/15/20 21:06 Celecoxib 200 Mg Capsule PO 200 mg BID WILLIE Administration Docusate Sodium 100 mg 06/15/20 21:00 06/15/20 21:06 Docusate Sodium 100 Mg Capsule PO 100 mg BID WILLIE Administration Hydromorphone HCl 0.25 mg 06/15/20 14:02 Hydromorphone Hcl 0.5 Mg/0.5 Ml Syringe IVPUSH Q4H PRN Pain, Severe (Pain Scale 7-10) Dextrose/Sodium Chloride 1,000 mls @ 80 mls/hr 06/15/20 14:02 06/16/20 02:47 D51/2ns IVCONT 80 mls/hr .[id number] WILLIE Administration Naloxone HCl 0.2 mg 06/15/20 14:02 Naloxone Hcl 0.4 Mg/Ml Vial IVPUSH Q2M PRN Excessive sedation or RR < 8 Ondansetron HCl 4 mg 06/15/20 14:02 Ondansetron Hcl 4 Mg/2 Ml Vial IVPUSH Q8H PRN Nausea and Vomiting Oxycodone HCl 5 mg 06/15/20 14:02 06/15/20 17:40 Oxycodone Hcl Immed Release 5 Mg Tablet PO 5 mg Q4H PRN Administration Pain, Moderate (Pain Scale 4-6 Oxycodone HCl 20 mg 06/15/20 21:00 06/15/20 21:06 Oxycodone Hcl Er 10 Mg Tab.Er.12h PO 20 mg BID WILLIE Administration Sodium Chloride 3 ml 06/15/20 16:00 06/16/20 07:38 0.9 % Sodium Chloride Flush 3 Ml Syringe IVFLUSH Not Given QSHIFT WILLIE Time Spent With Patient Time: Total time spent is greater than 50% in coordination of care (as documented) at patient's floor/unit and/or counseling patient: Time with patient: less than 15 minutes
[2020-06-16] MEDS: oxyCODONE HCl ER 10 MG TAB.ER.12H 20 MG PO ×2 (07:58→20:38)
[2020-06-16] MEDS: Docusate Sodium 100 MG CAPSULE PO ×2 (07:58→20:16)
[2020-06-16] MEDS: Celecoxib 200 MG CAPSULE PO ×2 (07:58→20:16)
[2020-06-16] MEDS: Aspirin 325 MG TABLET PO ×2 (07:59→20:16)
--- NOTE | 2020-06-16 09:53 | MHC.CM.PN ---
pt lives c in their home. her adult son also lives on the property. she reports that she is independent in her care, active and driving a car at baseline. pt's can help her c any needs she may have, including a ride home at dc. pt has a walker at home already. pt requested ref. be made to [facility] for home PT, this has been done. dc plan is home c [facility] for home PT. cm to cont. to follow.
--- NOTE | 2020-06-16 10:01 | HO.POSTANES ---
Post Anesthesia Evaluation Post Anesthesia Evaluation Vital Signs: Vital Signs Temp Pulse Resp BP Pulse Ox 06/16/20 08:21 65 114/61 98 06/16/20 07:00 97.3 F 65 16 114/61 98 06/16/20 03:00 97.2 F 66 16 102/63 96 06/15/20 23:00 97.9 F 66 18 120/66 96 Anesthesia: General Mental Status: Awake Pain Control: Satisfactory Nausea/Vomiting: None Hydration: Adequate Anesthesia-Related Issues: No Anes. Related Issues
[2020-06-16] MEDS: Acetaminophen 325 MG TABLET 650 MG PO (11:20)
[2020-06-16] MEDS: oxyCODONE HCl Immed Release 5 MG TABLET PO (11:20)
--- NOTE | 2020-06-16 14:56 | HO.PM.IMPN ---
Subjective Subjective Date of Service: 06/16/20 Interval History: Seen in follow-up for medical consultation post hip surgery. Patient is doing well the next day after surgery. Pain is control and participated well in physical therapy. Review of Systems Gen: no fever Resp: no sob, no cough CV: no chest, no LARA, no leg edema GI: No n/v, no abd pain Neuro: No confusion MSK: hip pain with movment Physical Exam Vital Signs: Vital Signs: Last Vital Signs Temp 97.1 F 06/16/20 11:00 Pulse 60 06/16/20 12:53 Resp 16 06/16/20 11:00 BP 103/68 06/16/20 12:53 Pulse Ox 98 06/16/20 12:53 Body Mass Index 32.3 General: AO X 3, no acute distress Resp: No respiratory difficulty, talking in full sentences. CVS: S1,S2,RRR GI: +BS, NT, no distention Skin: See Ortho assessment Neuro: motor grossly intact Psych: appropriate affect Objective Data Current Medications Generic Name Dose Route Start Last Admin Trade Name Freq PRN Reason Stop Dose Admin Acetaminophen 650 mg 06/15/20 14:02 06/16/20 11:20 Acetaminophen 325 Mg Tablet PO 650 mg Q6H PRN Administration Pain, Mild (Pain Scale 1-3) Aspirin 325 mg 06/16/20 09:00 06/16/20 07:59 Aspirin 325 Mg Tablet PO 325 mg BID WILLIE Administration Celecoxib 200 mg 06/15/20 21:00 06/16/20 07:58 Celecoxib 200 Mg Capsule PO 200 mg BID WILLIE Administration Docusate Sodium 100 mg 06/15/20 21:00 06/16/20 07:58 Docusate Sodium 100 Mg Capsule PO 100 mg BID WILLIE Administration Hydromorphone HCl 0.25 mg 06/15/20 14:02 Hydromorphone Hcl 0.5 Mg/0.5 Ml Syringe IVPUSH Q4H PRN Pain, Severe (Pain Scale 7-10) Dextrose/Sodium Chloride 1,000 mls @ 80 mls/hr 06/15/20 14:02 06/16/20 02:47 D51/2ns IVCONT 80 mls/hr .[id number] WILLIE Administration Naloxone HCl 0.2 mg 06/15/20 14:02 Naloxone Hcl 0.4 Mg/Ml Vial IVPUSH Q2M PRN Excessive sedation or RR < 8 Ondansetron HCl 4 mg 06/15/20 14:02 Ondansetron Hcl 4 Mg/2 Ml Vial IVPUSH Q8H PRN Nausea and Vomiting Oxycodone HCl 5 mg 06/15/20 14:02 06/16/20 11:20 Oxycodone Hcl Immed Release 5 Mg Tablet PO 5 mg Q4H PRN Administration Pain, Moderate (Pain Scale 4-6 Oxycodone HCl 20 mg 06/15/20 21:00 06/16/20 07:58 Oxycodone Hcl Er 10 Mg Tab.Er.12h PO 20 mg BID WILLIE Administration Sodium Chloride 3 ml 06/15/20 16:00 06/16/20 07:38 0.9 % Sodium Chloride Flush 3 Ml Syringe IVFLUSH Not Given QSHIFT WILLIE Labs CBC & Chem 7: 06/16/20 05:45 06/16/20 05:45 Assessment and Plan (1) History of right hip hemiarthroplasty: Problem details: 06/2018- Dr. Castellon Status: Acute Assessment and Plan: 64/F with HTN, HLD, anxiety now s/p Right JESÚS s/p JESÚS--management per surgery included pain, managment, DVT prophylaxis. Should have PT/OT HTN--, control, continue Diltiazem HLD--Lipitor Anxiety--Ativan, paroxetine At this point will sign off. Resume all home meds upon discharge.
[2020-06-17] MEDS: Dextrose 5 % and 0.45 % NaCl 1,000 ML 80 ML IVCONT (02:54)
[2020-06-17 03:00] VITALS: BP 126/71; PULSE 67; RESP 18; TEMP 35.8; O2SAT 97
[2020-06-17] MEDS: Acetaminophen 325 MG TABLET 650 MG PO (03:00)
[2020-06-17 06:41] LABS: MANUAL DIFF FLAG NO
[2020-06-17 06:54] LABS: Basophils Percent Auto 0.3 % (0-2); Eosinophils Absolute Auto 0.2 X10*3/uL (0.0-0.4); Eosinophils Percent Auto 2.9 % (0-4); Hematocrit 34.6 % (37-47); Hemoglobin 11.2 g/dl (12.0-16.0); Imm Gran Abs Auto 0.01 X10*3/uL (0.00-0.03); Imm Gran Pct Auto 0.2 % (0.0-0.4); Lymphocytes Absolute Auto 1.7 X10*3/uL (1.2-4.9); Lymphocytes Percent Auto 27.7 % (20-40); Mean Corpuscular HGB Conc 32.4 g/dl (31.0-35.0); Mean Corpuscular Hemoglobin 30.4 pg (27.0-33.0); Mean Platelet Volume 11.6 fL (9.4-12.3); Monocytes Absolute Auto 0.8 X10*3/uL (0.1-1.2); Monocytes Percent Auto 12.2 % (2-11); Neutrophils Absolute Auto 3.5 X10*3/uL (2.0-8.3); Neutrophils Percent Auto 56.7 % (45-73); Platelet Count 210 X10*3/uL (160-400); Red Blood Count 3.68 X10*6/uL (4.20-5.50); Red Cell Distribution Width 13.7 % (11.0-16.0); White Blood Count 6.2 X10*3/uL (4.8-10.8)
[2020-06-17 07:00] VITALS: BP 146/77; PULSE 69; RESP 18; TEMP 36; O2SAT 99
[2020-06-17 07:06] LABS: Anion Gap 8 (12-20); Blood Urea Nitrogen 12 mg/dL (9-16); Calcium 7.9 mg/dL (8.4-10.2); Carbon Dioxide 30 mmol/L (22-29); Chloride 109 mmol/L (96-108); Estimated Glomerular Filt Rate > 60; Glucose Fasting 87 mg/dL (60-99); Sodium 143 mmol/L (135-145)
[2020-06-17] MEDS: Aspirin 325 MG TABLET PO (07:52)
[2020-06-17] MEDS: Celecoxib 200 MG CAPSULE PO (07:52)
[2020-06-17] MEDS: Docusate Sodium 100 MG CAPSULE PO (07:52)
[2020-06-17] MEDS: oxyCODONE HCl ER 10 MG TAB.ER.12H 20 MG PO (07:53)
--- NOTE | 2020-06-17 07:58 | PM.DS ---
DS: Providers Provider Date of Service: 06/17/20 Date of admission: 06/15/20 07:43 Primary care physician: Oscar Ma MD Consults: 06/15/20 14:02 Consult to Hospitalist Routine Consulting Provider: Hospitalist Reason For Exam: medical management DS: Diagnosis Discharge Diagnosis (1) History of right hip hemiarthroplasty: Status: Acute Problem details: This is a 64-year-old female who is status post right hip hemiarthroplasty. She began having ongoing pain and discomfort with daily activities. Further examination confirmed arthritic changes in the acetabulum therefore she was booked for a right total hip arthroplasty. DS: Medications Discharge Medications Home Medications: Home Medications Medication Instructions Recorded Confirmed atorvastatin 1 tab PO DAILY 12/05/19 06/11/20 cholecalciferol (vitamin D3) 25 mcg PO DAILY 12/05/19 06/11/20 [Vitamin D3] diltiazem HCl 1 cap PO DAILY 12/05/19 06/11/20 lorazepam 0.5 mg PO BID PRN 12/05/19 06/11/20 omeprazole 20 mg PO DAILY PRN 12/05/19 06/11/20 paroxetine HCl 1 tab PO DAILY 12/05/19 06/15/20 Previous Rx's Medication Instructions Recorded acetaminophen 650 mg PO Q6H PRN 30 Days #240 tab 06/16/20 aspirin 325 mg PO BID 42 Days #84 tab 06/16/20 docusate sodium 100 mg PO BID 14 Days #28 cap 06/16/20 oxycodone 5 mg PO Q4H PRN 7 Days #42 tab 06/17/20 DS: Summary Hospital Course Hospital Course: The patient underwent a successful right total hip arthroplasty, was transferred to PACU and then to the floor to recover. During their stay, their vitals were stable, afebrile at 96.8. Labs were unremarkable, H/H 11.2/34.6. POD 1 she was started on aspirin for DVT ppx, they also received services twice a day. Prior to discharge, their dressing was change, incision clean dry and intact, new Aquacel dressing applied and the plan was to be discharged home with VNA services Time Spent with Patient Time attestation: Total time spent providing and/or coordinating discharge services: Discharge coordination time: Less than 30 minutes Physical Exam Vital Signs: Vital Signs: Last Vital Signs Temp 96.8 F 06/17/20 07:00 Pulse 69 06/17/20 07:00 Resp 18 06/17/20 07:00 BP 146/77 H 06/17/20 07:00 Pulse Ox 99 06/17/20 07:00 Body Mass Index 32.3 Const: General: cooperative, healthy appearing and no acute distress Resp: Effort & Inspection: normal respiratory effort and able to speak in complete sentences Cardio: Rate: regular rate Peripheral pulses: Peripheral pulses 2+ throughout GI: Palpation (GI): Soft to palpation Skin: General skin exam: no rashes or lesions noted Extrem: Other: Right hip iincision clean dry and intact. [place] intact. No erythema or effusion. Calf supple nontender. Neurovascularly intact. DS: Data Data Completed and Pending Pending studies at discharge: Pending at discharge 06/15/20 11:28 Surgical [PTH] Routine Labs on day of discharge: Laboratory Results - last 24 hr 06/17/20 06/17/20 06:07 06:07 WBC 6.2 RBC 3.68 L Hgb 11.2 L Hct 34.6 L MCV 94.0 MCH 30.4 MCHC 32.4 RDW 13.7 Plt Count 210 MPV 11.6 Immature Gran % (Auto) 0.2 Neut % (Auto) 56.7 Lymph % (Auto) 27.7 [place] % (Auto) 12.2 H Eos % (Auto) 2.9 Baso % (Auto) 0.3 Lymph # (Auto) 1.7 [place] # (Auto) 0.8 Eos # (Auto) 0.2 Baso # (Auto) 0.0 Abs Immat Gran (auto) 0.01 Absolute Neuts (auto) 3.5 Absolute Nucleated RBC 0.000 Nucleated RBC % (auto) 0.0 Sodium 143 Potassium 4.0 Chloride 109 H Carbon Dioxide 30 H Anion Gap 8 L BUN 12 Creatinine 0.60 Estim Creat Clear Calc 106.0 Estimated GFR > 60 Fasting Glucose 87 D Calcium 7.9 L Discharge Plan Discharge Patient Disposition: Home Health Service Discharge Diagnosis: s/p rt johnny Referrals: Ricardo CRENSHAW [Outside] - 1 Week Aubree Cortez PA-C [Physician Diplomatic Interpreter/Translator] - None (07/01/20 2:15 [facility]) Discharge Medications: New acetaminophen 325 mg Tablet 650 mg PO Q6H PRN (Reason: Pain, Mild (Pain Scale 1-3)) 30 Days Qty: 240 RF: 0 aspirin 325 mg Tablet 325 mg PO BID 42 Days Qty: 84 RF: 0 docusate sodium 100 mg Capsule 100 mg PO BID 14 Days Qty: 28 RF: 0 oxycodone 5 mg Tablet 5 mg PO Q4H PRN (Reason: Pain, Moderate (Pain Scale 4-6) 7 Days Qty: 42 RF: 0 Continued atorvastatin 10 mg tablet 1 tab PO DAILY RF: 0 lorazepam 0.5 mg Tablet 0.5 mg PO BID PRN (Reason: Anxiety) RF: 0 paroxetine HCl 20 mg tablet 1 tab PO DAILY RF: 0 omeprazole 20 mg Capsule,Delayed Release(Dr/Ec) 20 mg PO DAILY PRN (Reason: Heartburn) RF: 0 diltiazem HCl 120 mg capsule,extended release 24hr 1 cap PO DAILY RF: 0 cholecalciferol (vitamin D3) [Vitamin D3] 25 mcg (1,000 unit) Tablet 25 mcg PO DAILY RF: 0 Discharge Orders: Discharge Order (Routine); Ordered 06/17/20 Ordered By: Pranav Lopez Diet: regular diet Activity on Discharge: Use cane or walker Stand Alone Forms: Patient Portal Discharge page Care Plan Goals: .restore Health Concerns: none Plan of Treatment: Physical Therapy Pain management DVT prophylaxis Assessment: Physical Therapy for Total hip arthroplasty: posterior precautions, gait training, ROM, strength Limit stair climbing No showering, no tub bath-keep dressing clean, dry and intact No driving x6 weeks Continue Aspirin twice a day x 6 weeks Follow up with [facility] in 2 weeks
[2020-06-17 08:27] VITALS: BP 146/77; PULSE 69; O2SAT 99
--- NOTE | 2020-06-17 08:48 | P.F2F_ITS ---
Service Date Service Date: 06/17/20 Reasons for Services Reason for physical therapy: home safety and mobility, therapeutic exercises, restore joint function, gait/transfer training, assess need for DME, ADL training and energy conservation Reason for occupational therapy: home safety and mobility, therapeutic exercises, restore joint function, gait/transfer training, assess need for DME, ADL training and energy conservation MD Overseeing Care: Hector Castellon Homebound: Leaving the home is medically contraindicated at this time without the asist of a device and/or another person due th the listed conditions above and below. Reason homebound: unsteady gait / fall risk, pain with ambulation, poor balance / fall risk and unable to drive Homebound supporting statement: Pt. is considered home bound due to recent surgery. Unable to drive, poor balance, poor gait mechanics. Certification: Based on the above findings, I certify that this patient is confined to the home and needs intermittent half-way care, physical therapy and/or speech therapy, or continues to need occupational therapy. The patient is under my care, and I have initiated the establishment of the plan of care. The patient will be followed by a physician who will periodically review the plan of care.
--- NOTE | 2020-06-17 09:09 | P.CDIC_ITS ---
CDI Concurrent Query Service Date: 06/17/20 Documentation Clarification: Please clarify if you are treating a proba ble/suspected/likely or confirmed: Please clarify laterality of procedure: RIGHT Revision Right Hip Hemiarthroplasty to JESÚS Revision Left Hip Hemiarthroplasty to JESÚS Provider Response: Other (right hip hemiarthroplasty) Other Diagnosis: right hip hemiarthroplasty PLEASE DO NOT DELETE/MODIFY EXISTING CONTENT Additional information is needed in order to code to the highest accuracy and appropriate Severity of Illness (SOI). Please clarify the information noted below in your progress notes and discharge summary. Risk Factors/Clinical Indicators/Treatments 64 year old female admitted for hip hemiarthroplasty to JESÚS Brief Operative note 06/15/20 and Operative Note 06/15/20 both state left hip MD progress note of 06/15/20 states right hip Discharge Summary states right hip CDS: Melissa Castro RN Contact Number: [phone] Please Review the information above and exercise your independent professional judgment in responding to the query. If you concur, pleas document in the PROGRESS NOTES and DISCHARGE SUMMARY. If you do not agree with the query, please document in the query above. THIS QUERY IS PART OF THE PERMANENT MEDICAL RECORD
== END 2020-06-17 13:16 | disposition home health service (06) | DRG 468 ==
LOC: HO.SSSA 07:53 → HO.S3 12:54
PROVIDERS: Physician Assistant; Admitting Provider Orthopaedic Surgery; PCP Internal Medicine; Visit Provider Orthopaedic Surgery
PROC: 0SR90JA Replacement of Right Hip Joint with Synthetic Substitute, Uncemented, Open Approach (ICD-10-PCS; CPT 27130; principal; 2020-06-15 09:50)
DX: T84.84XA Pain due to internal orthopedic prosthetic devices, implants and grafts, initial encounter (principal); F41.9 Anxiety disorder, unspecified; K21.9 Gastro-esophageal reflux disease without esophagitis; E78.5 Hyperlipidemia, unspecified; I10 Essential (primary) hypertension; Z96.651 Presence of right artificial knee joint; Z20.822 Contact with and (suspected) exposure to COVID-19; Z98.1 Arthrodesis status; Z79.899 Other long term (current) drug therapy
CPT/HCPCS: 36415; 72170; 80048; 85025; 86850; 86900; 86901; 87635; 87640; 87641; 88304; 88311; 93005; 97110; 97116; 97162; 97165; 97535; C1776; J0131; J0690; J1100; J1170; J2250; J2405; J3010

== ENCOUNTER → 2020-07-01 14:03 | Outpatient (BNVA) | payer MEDICARE, SELFPAY | PROVIDERS: Visit Provider Physician Assistant | DX: Z48.02 Encounter for removal of sutures (principal); Z96.641 Presence of right artificial hip joint; M79.7 Fibromyalgia; E78.00 Pure hypercholesterolemia, unspecified; I10 Essential (primary) hypertension; F32.9 Major depressive disorder, single episode, unspecified | CPT/HCPCS: 99212 ==

== ENCOUNTER 2020-07-29 08:19 | Outpatient (REF) | payer MEDICARE, SELFPAY | END 2020-07-29 08:20 | disposition home or self-care (01) | LOC: HO.HOSX 08:19 | PROVIDERS: Visit Provider Orthopaedic Surgery | DX: Z96.641 Presence of right artificial hip joint (principal); M25.551 Pain in right hip; F41.8 Other specified anxiety disorders; E78.00 Pure hypercholesterolemia, unspecified; M79.7 Fibromyalgia; I10 Essential (primary) hypertension | CPT/HCPCS: 99212 ==

== ENCOUNTER 2020-07-29 10:37 | Outpatient (REF) | payer MEDICARE, SELFPAY ==
--- NOTE | ~2020-07-29 | XR_ITS ---
EXAMINATION: XR PELVIS CLINICAL INFORMATION: Pain hip. COMPARISON: No change from the last study AP pelvis 06/15/2020 and 12/19/2018. TECHNIQUE: AP view of the pelvis. FINDINGS: There is a total right hip prosthesis with prosthetic components in satisfactory alignment. There are postfusion changes in the lower lumbar spine. There is normal symmetry of bilateral SI joints. XR/XR pelvis 1-2V IMPRESSION: Total right hip arthroplasty with prosthetic components in satisfactory alignment.
== END 2020-07-29 10:38 | disposition home or self-care (01) ==
LOC: HO.XRAY 10:37
PROVIDERS: PCP Internal Medicine; Visit Provider Orthopaedic Surgery
DX: M25.559 Pain in unspecified hip (principal)
CPT/HCPCS: 72170

== ENCOUNTER 2020-10-01 12:03 | Outpatient (REF) | payer MEDICARE, SELFPAY ==
[2020-10-01 13:59] LABS: MANUAL DIFF FLAG NO
[2020-10-01 14:04] LABS: Basophils Percent Auto 0.8 % (0-2); Eosinophils Absolute Auto 0.1 X10*3/uL (0.0-0.4); Eosinophils Percent Auto 2.6 % (0-4); Hematocrit 43.9 % (37-47); Hemoglobin 14.4 g/dl (12.0-16.0); Imm Gran Abs Auto 0.02 X10*3/uL (0.00-0.03); Imm Gran Pct Auto 0.4 % (0.0-0.4); Lymphocytes Absolute Auto 1.2 X10*3/uL (1.2-4.9); Lymphocytes Percent Auto 24.6 % (20-40); Mean Corpuscular HGB Conc 32.8 g/dl (31.0-35.0); Mean Corpuscular Hemoglobin 30.1 pg (27.0-33.0); Mean Corpuscular Volume 91.6 fL (80-98); Mean Platelet Volume 11.8 fL (9.4-12.3); Monocytes Absolute Auto 0.5 X10*3/uL (0.1-1.2); Monocytes Percent Auto 10.4 % (2-11); Neutrophils Percent Auto 61.2 % (45-73); Platelet Count 297 X10*3/uL (160-400); Red Blood Count 4.79 X10*6/uL (4.20-5.50); Red Cell Distribution Width 13.6 % (11.0-16.0); White Blood Count 4.9 X10*3/uL (4.8-10.8)
[2020-10-01 14:37] LABS: Alanine Aminotransferase 23 U/L (0-31); Albumin Level 4.2 g/dL (3.5-5.0); Alkaline Phosphatase 83 U/L (39-117); Anion Gap 13 (12-20); Aspartate Amino Transferase 16 U/L (5-31); Bilirubin Total 0.7 mg/dL (0.0-1.0); Blood Urea Nitrogen 11 mg/dL (9-16); C Reactive Protein 0.48 mg/dL (< or = 0.50); Calcium 9.6 mg/dL (8.4-10.2); Carbon Dioxide 27 mmol/L (22-29); Chloride 107 mmol/L (96-108); Estimated Glomerular Filt Rate > 60; Glucose Random 93 mg/dL (60-115); Potassium 4.3 mmol/L (3.3-5.1); Sodium 143 mmol/L (135-145); Total Protein 7.2 g/dL (6.5-8.0)
[2020-10-01 15:12] LABS: Vitamin B12 303 pg/mL (200-900)
== END 2020-10-01 12:04 | disposition home or self-care (01) ==
LOC: HO.HMGCLDS 12:03
PROVIDERS: PCP Internal Medicine; Visit Provider Internal Medicine
DX: I10 Essential (primary) hypertension (principal); G43.909 Migraine, unspecified, not intractable, without status migrainosus; K21.9 Gastro-esophageal reflux disease without esophagitis; E78.00 Pure hypercholesterolemia, unspecified; M19.90 Unspecified osteoarthritis, unspecified site
CPT/HCPCS: 36415; 80053; 82550; 82607; 85025; 86140

== ENCOUNTER 2021-01-03 13:27 | Outpatient (REF) | payer MEDICARE, SELFPAY ==
[2021-01-03 16:39] LABS: MANUAL DIFF FLAG NO
[2021-01-03 16:45] LABS: Basophils Percent Auto 0.6 % (0-2); Eosinophils Absolute Auto 0.2 X10*3/uL (0.0-0.4); Eosinophils Percent Auto 3.5 % (0-4); Hematocrit 43.2 % (37.0-47.0); Hemoglobin 14.1 g/dl (12.0-16.0); Imm Gran Abs Auto 0.01 X10*3/uL (0.00-0.03); Imm Gran Pct Auto 0.2 % (0.0-0.4); Lymphocytes Absolute Auto 1.4 X10*3/uL (1.2-4.9); Lymphocytes Percent Auto 28.3 % (20-40); Mean Corpuscular HGB Conc 32.6 g/dl (31.0-35.0); Mean Corpuscular Hemoglobin 29.7 pg (27.0-33.0); Mean Corpuscular Volume 90.9 fL (80.0-98.0); Mean Platelet Volume 12.4 fL (9.4-12.3); Monocytes Absolute Auto 0.4 X10*3/uL (0.1-1.2); Monocytes Percent Auto 8.6 % (2-11); Neutrophils Absolute Auto 2.9 x10*3/uL (2.0-8.3); Neutrophils Percent Auto 58.8 % (45-73); Platelet Count 301 X10*3/uL (160-400); Red Blood Count 4.75 X10*6/uL (4.20-5.50); Red Cell Distribution Width 13.3 % (11.0-16.0); White Blood Count 4.9 X10*3/uL (4.8-10.8)
[2021-01-03 17:04] LABS: Alanine Aminotransferase 21 U/L (0-31); Albumin Level 4.2 g/dL (3.5-5.0); Alkaline Phosphatase 75 U/L (39-117); Anion Gap 14 (12-20); Aspartate Amino Transferase 18 U/L (5-31); Bilirubin Total 0.4 mg/dL (0.0-1.0); Blood Urea Nitrogen 12 mg/dL (9-16); C Reactive Protein 0.19 mg/dL (< or = 0.50); Calcium 9.2 mg/dL (8.4-10.2); Carbon Dioxide 24 mmol/L (22-29); Chloride 107 mmol/L (96-108); Estimated Glomerular Filt Rate > 60; Glucose Random 99 mg/dL (60-115); Potassium 4.4 mmol/L (3.3-5.1); Sodium 141 mmol/L (135-145)
[2021-01-03 17:26] LABS: Thyroid Stimulating Hormone 0.75 uIU/mL (0.32-4.0)
[2021-01-03 17:28] LABS: Vitamin B12 315 pg/mL (200-900)
== END 2021-01-03 13:28 | disposition home or self-care (01) ==
LOC: HO.HMGCLDS 13:27
PROVIDERS: PCP Internal Medicine; Visit Provider Internal Medicine
DX: I10 Essential (primary) hypertension (principal); K21.9 Gastro-esophageal reflux disease without esophagitis; E78.00 Pure hypercholesterolemia, unspecified; R00.2 Palpitations; R53.83 Other fatigue
CPT/HCPCS: 36415; 80053; 82607; 84443; 85025; 86140

== ENCOUNTER 2021-01-05 09:02 | Outpatient (REF) | payer MEDICARE, SELFPAY ==
--- NOTE | ~2021-01-05 | XR_ITS ---
EXAMINATION: XR HAND, RIGHT CLINICAL INFORMATION: Right hand pain COMPARISON: 10/08/2017 TECHNIQUE: PA, lateral, and oblique views of the right hand. 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 No active erosion or suspicious soft tissue calcification. No fracture. XR/XR hand RT min 3V IMPRESSION: Degenerative changes, most prominent at the right interphalangeal joint. No significant change.
== END 2021-01-05 09:03 | disposition home or self-care (01) ==
LOC: HO.HOSX 09:02
PROVIDERS: Visit Provider Orthopaedic Surgery
DX: M65.341 Trigger finger, right ring finger (principal)
CPT/HCPCS: 20550; 73130; 99202; J1100

== ENCOUNTER 2021-02-21 16:25 | Outpatient (REF) | payer MEDICARE, SELFPAY ==
[2021-02-21 16:45] LABS: COVID-19 Test Negative (Negative)
== END 2021-02-21 16:26 | disposition home or self-care (01) ==
LOC: HO.LNP 16:25
PROVIDERS: Visit Provider Internal Medicine
DX: R05.9 Cough, unspecified (principal); R09.89 Other specified symptoms and signs involving the circulatory and respiratory systems; Z20.822 Contact with and (suspected) exposure to COVID-19
CPT/HCPCS: 87635

== ENCOUNTER 2021-10-06 08:58 | Outpatient (REF) | payer MEDICARE, SELFPAY ==
[2021-10-06 11:21] LABS: MANUAL DIFF FLAG NO
[2021-10-06 11:29] LABS: Basophils Percent Auto 0.9 % (0-2); Eosinophils Absolute Auto 0.2 X10*3/uL (0.0-0.4); Eosinophils Percent Auto 4.1 % (0-4); Hematocrit 41.8 % (37.0-47.0); Hemoglobin 13.7 g/dl (12.0-16.0); Imm Gran Abs Auto 0.01 X10*3/uL (0.00-0.03); Imm Gran Pct Auto 0.2 % (0.0-0.4); Lymphocytes Absolute Auto 0.9 X10*3/uL (1.2-4.9); Lymphocytes Percent Auto 20.8 % (20-40); Mean Corpuscular HGB Conc 32.8 g/dl (31.0-35.0); Mean Corpuscular Hemoglobin 29.8 pg (27.0-33.0); Mean Corpuscular Volume 90.9 fL (80.0-98.0); Mean Platelet Volume 11.6 fL (9.4-12.3); Monocytes Absolute Auto 0.4 X10*3/uL (0.1-1.2); Monocytes Percent Auto 9.7 % (2-11); Neutrophils Absolute Auto 2.8 x10*3/uL (2.0-8.3); Neutrophils Percent Auto 64.3 % (45-73); Platelet Count 304 X10*3/uL (160-400); Red Cell Distribution Width 13.3 % (11.0-16.0); White Blood Count 4.4 X10*3/uL (4.8-10.8)
[2021-10-06 11:58] LABS: Alanine Aminotransferase 17 U/L (0-31); Alkaline Phosphatase 68 U/L (39-117); Anion Gap 14 (12-20); Aspartate Amino Transferase 17 U/L (5-31); Bilirubin Total 0.8 mg/dL (0.0-1.0); Blood Urea Nitrogen 11 mg/dL (9-16); Calcium 9.2 mg/dL (8.4-10.2); Carbon Dioxide 24 mmol/L (22-29); Chloride 107 mmol/L (96-108); Cholesterol 185 mg/dL; Estimated Glomerular Filt Rate > 60; Glucose Fasting 91 mg/dL (60-99); HDL Cholesterol 57 mg/dL; LDL Cholesterol Calculated 109 mg/dl; Potassium 4.4 mmol/L (3.3-5.1); Sodium 141 mmol/L (135-145); Total Protein 6.9 g/dL (6.5-8.0); Triglycerides 95 mg/dL
== END 2021-10-06 08:59 | disposition home or self-care (01) ==
LOC: HO.HMGCLDS 08:58
PROVIDERS: PCP Internal Medicine; Visit Provider Internal Medicine
DX: I10 Essential (primary) hypertension (principal); K21.9 Gastro-esophageal reflux disease without esophagitis; E78.00 Pure hypercholesterolemia, unspecified
CPT/HCPCS: 36415; 80053; 80061; 85025

== ENCOUNTER → 2021-10-26 12:25 | Outpatient (BNVA) | payer MEDICARE, SELFPAY | PROVIDERS: PCP Internal Medicine; Visit Provider Physician Assistant | DX: M65.341 Trigger finger, right ring finger (principal) | CPT/HCPCS: 99212 ==

== ENCOUNTER 2021-11-17 08:04 | Day surgery (SDC) | payer MEDICARE, SELFPAY ==
[2021-11-17 08:13] VITALS: BP 146/82; PULSE 88; RESP 16; TEMP 37; O2SAT 96; BMI 31.1
--- NOTE | 2021-11-17 09:38 | MHC.SHP ---
Pre-Procedural Eval Section A Date of Service: 11/17/21 The patient is an INPATIENT: No Changes since office visit: No Cold of Flu in the past 2 weeks, No New Medical Problems, No Changes in Medication and No Patient answered all questions The History & Physical has been completed within 30 days and I have reviewed it.: Yes Section B Chief Complaint: Trigger finger, right ring finger Allergies: Allergies Allergy/AdvReac Type Severity Reaction Status Date / Time No Known Allergies Allergy Mild NONE Verified 11/17/21 08:11 Plan I have reviewed the history and physical and performed a pertinent physical examination on my patient. No changes have occurred unless specified.
--- NOTE | 2021-11-17 09:39 | P.OP_ITS ---
Operative Note Operative Note Date of Service: 11/17/21 Narrative: Operative Note Preop diagnosis: 1. Right ring finger Trigger finger Postop diagnosis: 1. Right ring finger Trigger finger Procedure: 1. Right ring finger A1 ruben release Surgeon: Regla Marvin MD Anesthesia: local block using 1% lidocaine with epinephrine Findings: No locking or catching after A1 ruben release EBL: Less than 5 mL Tourniquet time: None Specimens: None Complications: None Disposition: Brought to recovery room in stable condition Plan: Follow-up for 10-14 days for wound check and suture removal Indications: The patient is 66 years old, with a right ring finger trigger finger that has been unresponsive to nonoperative management. The risks and benefits of operative treatment including but not limited to risk of damage to blood vessels, nerves, tendons, infection, persistent pain, persistent symptoms, recurrence or possible need for additional surgery were discussed with the patient and the patient wishes to proceed with surgery. Procedure: Once consent was obtained a local block was performed in the preop area using a combination of 1% lidocaine with epinephrine. The patient was then brought back to the operating suite and placed on the operative table in supine position. A tourniquet was applied to the proximal aspect of the right upper extremity and the limb was prepped and draped in a standard surgical fashion. Once assured that we had a good block, a 1.5 cm oblique incision was made centered over the A1 ruben of the right ring finger . The incision was made through the skin to the subcutaneous tissues using a #15 blade. Careful dissection was made down to the level of the A1 ruben using tenotomy scissors, with care being taken to protect the nearby neurovascular structures. A longitudinal incision was made in the A1 ruben 1st using a #15 blade, then using tenotomy scissors under direct visualization. The A1 ruben was noted to be thickened. Following our A1 ruben release, we no longer saw any locking or catching of the digit with flexion and extension. Once satisfied with our A1 ruben release the wound was copiously irrigated with normal saline and hemostasis was obtained with a brief period of local pressure. The skin edges were reapproximated with some 5.0 nylon suture material and a sterile dressing was applied. The patient appears to have tolerated the procedure well and with no complicati ons. All digits were well vascularized at the conclusion of the case.
[2021-11-17 10:42] VITALS: BP 144/80; PULSE 86; RESP 16; O2SAT 97
== END 2021-11-17 10:43 | disposition home or self-care (01) ==
PROVIDERS: PCP Internal Medicine; Visit Provider Orthopaedic Surgery
PROC: (CPT 26055; principal; 2021-11-17 09:00)
DX: M65.341 Trigger finger, right ring finger (principal); R20.0 Anesthesia of skin; R20.2 Paresthesia of skin; M79.7 Fibromyalgia; I10 Essential (primary) hypertension; Z86.19 Personal history of other infectious and parasitic diseases; Z98.890 Other specified postprocedural states
CPT/HCPCS: 26055; J0171; J2795

== ENCOUNTER 2022-06-13 15:21 | Outpatient (REF) | payer MEDICARE, SELFPAY ==
--- NOTE | ~2022-06-13 | XR_ITS ---
EXAMINATION: XR LUMBOSACRAL SPINE CLINICAL INFORMATION: Fall COMPARISON: Previous CT of the abdomen and pelvis February 2017 and x-ray August 2014 TECHNIQUE: Three views of the lumbosacral spine. FINDINGS: There are postsurgical changes with posterior fusion hardware with screws from L3 to S1. Surgical hardware appears unchanged without evidence of fracture or loosening. There is bone graft material seen posteriorly from L3 to S1. There are broken stimulator leads at L2-L3. This is unchanged. No fracture or dislocation. There is mild 2 to 3 mm anterior subluxation of L2 with respect to L3. Bone alignment is otherwise normal. There is degenerative disc disease at all levels sparing L3-L4. There is atherosclerotic disease. There is a right hip replacement. XR/XR lumbar spine 2-3V IMPRESSION: Stable postsurgical changes following posterior fusion from L3 to S1. Multilevel degenerative changes. Broken stimulator leads in place at L2-L3.
--- NOTE | ~2022-06-13 | XR_ITS ---
EXAMINATION: XR FEMUR, LEFT CLINICAL INFORMATION: Swelling. Fall. COMPARISON: Previous knee x-ray from 2015 and pelvis x-ray 2020 TECHNIQUE: AP and lateral views of the left femur were obtained. FINDINGS: Bone alignment is normal. No fracture or dislocation. There is moderate to severe arthritis at the knee joint. There is mild arthritis at the left hip joint. There is question of a 1.7 x 0.7 cm lucent lesion in the medial distal femoral shaft. Atherosclerotic disease. XR/XR femur LT 2V IMPRESSION: No fracture or dislocation. Question 0.7 x 1.7 cm lytic lesion in the distal femoral shaft. Arthritis at the knee and hip joints.
== END 2022-06-13 15:22 | disposition home or self-care (01) ==
LOC: HO.XRAY 15:21
PROVIDERS: PCP Internal Medicine; Visit Provider Internal Medicine
DX: M54.50 Low back pain, unspecified (principal); M79.652 Pain in left thigh; Z91.81 History of falling
CPT/HCPCS: 72100; 73552

== ENCOUNTER → 2022-08-14 11:05 | Outpatient (BNVA) | payer MEDICARE, SELFPAY | PROVIDERS: PCP Internal Medicine; Visit Provider Physician Assistant | DX: M65.312 Trigger thumb, left thumb (principal); M70.52 Other bursitis of knee, left knee | CPT/HCPCS: 20550; 99212; J1100 ==

== ENCOUNTER 2022-08-25 12:49 | Outpatient (REF) | payer MEDICARE, SELFPAY ==
--- NOTE | ~2022-08-25 | CT_ITS ---
EXAMINATION: CT FEMUR WITHOUT CONTRAST, LEFT CLINICAL INFORMATION: Question 1.7 cm lytic lesion in the distal femoral shaft on prior radiographs. COMPARISON: Left femur radiographs dated 06/13/2022. TECHNIQUE: Contiguous axial CT images of the left femur were obtained without contrast. Multiplanar reformats were provided and reviewed. This CT examination was performed using dose optimization techniques as appropriate, variously including the following: *Automated exposure control *Adjustment of mA and/or kV according to patient size (this includes techniques or standardized protocols for targeted exams where dose is matched to indication/reason for exam; i.e. extremities or head) *Use of iterative reconstruction technique. DOSE: 672 mGy-cm. FINDINGS: There is focal cortical scalloping within the posteromedial aspect of the distal femoral metaphysis measuring approximately 1.7 x 0.5 cm (CC by ML), corresponding to the prior radiograph findings. No cortical erosion or periosteal reaction. No soft tissue component. 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 No concerning lytic or blastic osseous lesion. No acute fracture or dislocation. No evidence of avascular necrosis. Tricompartmental osteophytes within the left knee with mild patellofemoral joint space narrowing. No significant joint effusion. No abnormal soft tissue mass or fluid collection. The visualized muscles and tendons are grossly intact however, evaluation is limited on CT examination. The visualized intrapelvic structures are grossly unremarkable. CT/CT femur LT wo IV con IMPRESSION: 1. Focal cortical scalloping within the posteromedial aspect of the distal femoral metaphysis measuring 1.7 x 0.5 cm (CC by ML). 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 No aggressive lytic or blastic osseous lesion. 2. Mild patellofemoral osteoarthritis within the left knee.
== END 2022-08-25 12:50 | disposition home or self-care (01) ==
LOC: HO.CT 12:49
PROVIDERS: PCP Internal Medicine; Visit Provider Physician Assistant
DX: M89.9 Disorder of bone, unspecified (principal)
CPT/HCPCS: 73700

== ENCOUNTER 2022-09-05 14:41 | Outpatient (REF) | payer MEDICARE, SELFPAY ==
--- NOTE | ~2022-09-05 | XR_ITS ---
EXAMINATION: XR MANDIBLE CLINICAL INFORMATION: Left jaw pain. COMPARISON: None available. TECHNIQUE: 5 AP, oblique and lateral views of the mandible were obtained. FINDINGS: There are no fractures or dislocations. No bone, joint or soft tissue abnormality is demonstrated. XR/XR mandible min 4V IMPRESSION: Unremarkable examination.
== END 2022-09-05 14:42 | disposition home or self-care (01) ==
LOC: HO.XRAY 14:41
PROVIDERS: PCP Internal Medicine; Visit Provider Internal Medicine
DX: R68.84 Jaw pain (principal)
CPT/HCPCS: 70110

== ENCOUNTER 2023-01-11 09:21 | Outpatient (REF) | payer MEDICARE, SELFPAY ==
[2023-01-11 11:48] LABS: MANUAL DIFF FLAG NO
[2023-01-11 12:11] LABS: Basophils Absolute Auto 0.1 X10*3/uL (0.0-0.2); Basophils Percent Auto 1.4 % (0-2); Eosinophils Absolute Auto 0.2 X10*3/uL (0.0-0.4); Eosinophils Percent Auto 4.9 % (0-4); Hematocrit 43.6 % (37.0-47.0); Hemoglobin 14.2 g/dl (12.0-16.0); Imm Gran Abs Auto 0.01 X10*3/uL (0.00-0.03); Imm Gran Pct Auto 0.3 % (0.0-0.4); Lymphocytes Absolute Auto 0.9 X10*3/uL (1.2-4.9); Lymphocytes Percent Auto 23.8 % (20-40); Mean Corpuscular HGB Conc 32.6 g/dl (31.0-35.0); Mean Corpuscular Hemoglobin 30.5 pg (27.0-33.0); Mean Corpuscular Volume 93.8 fL (80.0-98.0); Mean Platelet Volume 12.2 fL (9.4-12.3); Monocytes Absolute Auto 0.4 X10*3/uL (0.1-1.2); Monocytes Percent Auto 9.8 % (2-11); Neutrophils Absolute Auto 2.2 x10*3/uL (2.0-8.3); Neutrophils Percent Auto 59.8 % (45-73); Platelet Count 295 X10*3/uL (160-400); Red Blood Count 4.65 X10*6/uL (4.20-5.50); Red Cell Distribution Width 13.4 % (11.0-16.0); White Blood Count 3.7 X10*3/uL (4.8-10.8)
[2023-01-11 12:12] LABS: Alanine Aminotransferase 21 U/L (0-31); Albumin Level 3.9 g/dL (3.5-5.0); Alkaline Phosphatase 68 U/L (39-117); Anion Gap 9 (12-20); Aspartate Amino Transferase 18 U/L (5-31); Bilirubin Total 0.8 mg/dL (0.0-1.0); Blood Urea Nitrogen 13 mg/dL (9-16); Calcium 9.2 mg/dL (8.4-10.2); Carbon Dioxide 31 mmol/L (22-29); Chloride 106 mmol/L (96-108); Cholesterol 172 mg/dL (<200); Estimated Glomerular Filt Rate > 60; Glucose Fasting 93 mg/dL (60-99); HDL Cholesterol 58 mg/dL (>40); LDL Cholesterol Calculated 100 mg/dL (<100); Potassium 4.6 mmol/L (3.3-5.1); Sodium 141 mmol/L (135-145); Total Protein 7.1 g/dL (6.5-8.0); Triglycerides 74 mg/dL (<150)
== END 2023-01-11 09:22 | disposition home or self-care (01) ==
LOC: HO.HMGCLDS 09:21
PROVIDERS: PCP Internal Medicine; Visit Provider Internal Medicine
DX: I10 Essential (primary) hypertension (principal); K21.9 Gastro-esophageal reflux disease without esophagitis; E78.00 Pure hypercholesterolemia, unspecified; M81.0 Age-related osteoporosis without current pathological fracture
CPT/HCPCS: 36415; 80053; 80061; 85025

== ENCOUNTER 2023-02-20 15:21 | Outpatient (REF) | payer MEDICARE, SELFPAY ==
[2023-02-20 16:13] LABS: Influenza A PCR NEGATIVE (Negative); Influenza B PCR NEGATIVE (Negative); Resp Syncy Virus RNA Qual PCR NEGATIVE (Negative); SARS COV2 PCR INHOUSE NEGATIVE (Negative)
== END 2023-02-20 15:22 | disposition home or self-care (01) ==
LOC: HO.LNP 15:21
PROVIDERS: Visit Provider Internal Medicine
DX: R06.2 Wheezing (principal); Z11.52 Encounter for screening for COVID-19
CPT/HCPCS: 0241U

== ENCOUNTER 2023-08-01 13:11 | Outpatient (REF) | payer MEDICARE, SELFPAY ==
[2023-08-01 16:13] LABS: MANUAL DIFF FLAG NO
[2023-08-01 16:35] LABS: Basophils Absolute Auto 0.1 X10*3/uL (0.0-0.2); Basophils Percent Auto 1.1 % (0-2); Eosinophils Absolute Auto 0.2 X10*3/uL (0.0-0.4); Eosinophils Percent Auto 3.6 % (0-4); Hemoglobin 14.5 g/dl (12.0-16.0); Imm Gran Abs Auto 0.01 X10*3/uL (0.00-0.03); Imm Gran Pct Auto 0.2 % (0.0-0.4); Lymphocytes Absolute Auto 1.4 X10*3/uL (1.2-4.9); Lymphocytes Percent Auto 29.8 % (20-40); Mean Corpuscular Hemoglobin 30.9 pg (27.0-33.0); Mean Corpuscular Volume 93.6 fL (80.0-98.0); Mean Platelet Volume 12.4 fL (9.4-12.3); Monocytes Absolute Auto 0.4 X10*3/uL (0.1-1.2); Monocytes Percent Auto 7.4 % (2-11); Neutrophils Absolute Auto 2.7 x10*3/uL (2.0-8.3); Neutrophils Percent Auto 57.9 % (45-73); Platelet Count 267 X10*3/uL (160-400); Red Cell Distribution Width 13.4 % (11.0-16.0); White Blood Count 4.7 X10*3/uL (4.8-10.8)
[2023-08-01 16:51] LABS: Alanine Aminotransferase 21 U/L (0-31); Alkaline Phosphatase 67 U/L (39-117); Anion Gap 14 (12-20); Aspartate Amino Transferase 23 U/L (5-31); Bilirubin Total 0.7 mg/dL (0.0-1.0); Blood Urea Nitrogen 13 mg/dL (9-16); Calcium 9.5 mg/dL (8.4-10.2); Carbon Dioxide 26 mmol/L (22-29); Chloride 107 mmol/L (96-108); Estimated Glomerular Filt Rate > 60; Glucose Random 103 mg/dL (60-115); Potassium 4.7 mmol/L (3.3-5.1); Sodium 142 mmol/L (135-145); Total Protein 7.3 g/dL (6.5-8.0)
[2023-08-01 16:57] LABS: Thyroid Stimulating Hormone 0.93 uIU/mL (0.32-4.0)
[2023-08-01 17:03] LABS: Vitamin B12 334 pg/mL (200-900)
[2023-08-01 17:30] LABS: Erythrocyte Sedimentation Rate 8 MM/HR (0-20)
== END 2023-08-01 13:12 | disposition home or self-care (01) ==
LOC: HO.HMGCLDS 13:11
PROVIDERS: PCP Internal Medicine; Visit Provider Internal Medicine
DX: M79.10 Myalgia, unspecified site (principal); I10 Essential (primary) hypertension; K21.9 Gastro-esophageal reflux disease without esophagitis; M81.0 Age-related osteoporosis without current pathological fracture
CPT/HCPCS: 36415; 80053; 82550; 82607; 84443; 85025; 85652; 86140

== ENCOUNTER 2023-08-29 06:36 | Outpatient (REF) | payer MEDICARE, SELFPAY ==
--- NOTE | ~2023-08-29 | XR_ITS ---
EXAMINATION: XR SHOULDER, LEFT CLINICAL INFORMATION: Pain in the left shoulder COMPARISON: X-ray the left shoulder February 2016 TECHNIQUE: AP external rotation, Grashey, scapular Y, and axillary views of the left shoulder. FINDINGS: The bones and soft tissues are normal. No fracture. Glenohumeral and acromioclavicular alignment is anatomic with normal joint space. No abnormal soft tissue calcifications. XR/XR shoulder LT min 2V IMPRESSION: Normal left shoulder.
== END 2023-08-29 06:37 | disposition home or self-care (01) ==
LOC: HO.HOSX 06:36
PROVIDERS: Visit Provider Physician Assistant
DX: M75.82 Other shoulder lesions, left shoulder (principal); S46.812A Strain of other muscles, fascia and tendons at shoulder and upper arm level, left arm, initial encounter
CPT/HCPCS: 20610; 73030; 99212; J1010

== ENCOUNTER 2023-08-29 12:46 | Outpatient (AMB) | payer MEDICARE, SELFPAY ==
--- NOTE | 2023-08-29 12:58 | A.OFFVIS_ITS ---
Vital Signs 08/29/23 13:00 Height 5 ft 5.5 in Weight 200 lb BMI 32.8 Intake Visit Reasons: Newprob-Left shoulder/arm pain Intake Note: Franca a 68 year old right hand dominant female who presents today for an evaluation of left shoulder pain. Patient reports progressive pain in the posterior aspect of shoulder, bicep area and hand that radiates into her thumb, 2nd and 3rd digit. Her symptoms started with a slight tingling and spasms in her shoulder. States having muscle pain and weakness. No previous tx. Finds no relief with ibuprofen. Allergies No Known Allergies Allergy (Mild, Verified 08/29/23 13:09) NONE Medication List - Last Reconciled 08/29/23 by Pranav Lopez PA-C acetaminophen 650 mg (2 x 325 mg) PO Q6H PRN 30 days atorvastatin 1 tab PO DAILY cholecalciferol (vitamin D3) (Vitamin D3) 25 mcg PO DAILY diltiazem HCl CD 1 cap PO DAILY lorazepam 0.5 mg PO BID PRN magnesium 200 mg PO DAILY omeprazole 20 mg PO DAILY PRN paroxetine HCl 1 tab PO DAILY HPI HPI Newprob-Left shoulder/arm pain: Details: 68-year-old right hand dominant female who presents to the office today for an evaluation of left shoulder pain for about a month. She reports her symptoms started with a slight tingling and spasms in her shoulder. She currently states she has progressive pain, numbness and tingling at the posterior aspect of her shoulder, bicep area, and hand that radiates into her thumb, index and middle finger. She rates the pain as 6-7 on the scale of 0-10. Her pain is aggravated at night. She also experiences muscle pain and weakness in her shoulder. She has not had any treatment in the past. She finds no relief with ibuprofen. She does not have a history of diabetes. [facility]LY [facility] Medical History Anxiety Arthritis Back pain COVID-19 vaccine series completed Depression Elevated cholesterol Fibromyalgia GERD (gastroesophageal reflux disease) Head ache History of dysphagia History of shingles HTN (hypertension) Hx of bronchiolitis Hx of thoracic outlet syndrome Muscle spasm Surgical History Hx of arthroscopy of right knee History of total right knee replacement (TKR) H/O excision of ganglion cyst Hx of tonsillectomy Hx of spinal fusion History of right hip hemiarthroplasty History of surgery on right wrist Hx of colonoscopy Social History Are you a primary career transition specialist to a significant other at home: No Do you presently have visiting nurse or other home services: No Alcohol intake: current Alcohol intake frequency: a few times a month Alcohol type: wine Second Hand Smoke Exposure: No service: No Current occupational status: retired Review of Systems Const All systems reviewed & are unremarkable except as noted in HPI and below Physical Exam Vital Signs: BMI result Body Mass Index 32.8 Extrem Other: Left shoulder: Normal to inspection. Tenderness over the trapezium of the shoulder. Forward flexion to 175, external rotation to 90, internal rotation to S1. 5/5 RTC strength. Positive Farias. NVI. Office Procedures Joint Injection/Drain Joint Injection/Drain Primary Site: left shoulder Prep: site was prepped using aseptic technique, ethochloride spray was applied and injection warnings given Injected: 80 mg of, DepoMedrol, with 8 mL of, 1% plain lidocaine and in the subcromial space Approach Used: posterolateral Procedure: The patient tolerated the procedure well and there was some relief with the local anesthesia Coding 36618 - Glenohumeral/Tronchanteric Bursa/Intraarticular Procedure code (CPT) selection complete Results Reviewed Results Reviewed: Xrays were obtained in the office today and personally reviewed by me of the left shoulder show type 2 acromion. Assessment & Plan Assessment & Plan (1) Tendonitis of left rotator cuff: Code(s): M75.82 - Other shoulder lesions, left shoulder Category: Medical (2) Trapezius muscle strain: Code(s): S46.819A - Strain of other muscles, fascia and tendons at shoulder and upper arm level, unspecified arm, initial encounter Category: Medical Plan We discussed options today, which include steroid injection. The patient did consent to move forward with the left shoulder injection, which was tolerated well. I recommended rest, ice, and elevation and OTC anti-inflammatories as needed for discomfort. She was also given a course of physical therapy in the office today. If symptoms persist or worsen over the next 6-8 weeks, patient will contact the office, otherwise follow-up as needed. Orders: Orders XR shoulder LT min 2V Today M25.512 - Pain in left shoulder PT Evaluation and Treatment Today M75.82 - Other shoulder lesions, left shoulder, S46.819A - Strain of other muscles, fascia and tendons at shoulder and upper arm level, unspecified arm, initial encounter Patient Instructions: Scribed for Pranav Lopez PA-C, by Néstor Muhammad nurses medical assistants phlebotomists, on 08/29/2023 at 1:00 PM EST.? I, Pranav Lopez PA-C, have personally reviewed and agree with the information entered by the scribe. Coding Level of Care Code Est Pt Level 3 (67833) Diagnoses Tendonitis of left rotator cuff M75.82 Trapezius muscle strain S46.819A CPT Codes Coding - Joint 7: 27831 - Glenohumeral/Tronchanteric Bursa/Intraarticular ([id number])
[2023-08-29 13:00] VITALS: BMI 32.8
== END 2023-08-29 14:56 | disposition home or self-care (01) ==
PROVIDERS: PCP Internal Medicine; Visit Provider Physician Assistant
DX: M75.82 Other shoulder lesions, left shoulder (principal); S46.819A Strain of other muscles, fascia and tendons at shoulder and upper arm level, unspecified arm, initial encounter
CPT/HCPCS: 20610; 99213

== ENCOUNTER 2023-12-25 07:34 | Outpatient (REF) | payer MEDICARE, SELFPAY ==
--- NOTE | ~2023-12-25 | CT_ITS ---
EXAMINATION: CT CERVICAL SPINE WITHOUT CONTRAST CLINICAL INFORMATION: Cervical radiculopathy COMPARISON: None available. TECHNIQUE: A noncontrast CT of the cervical spine with sagittal and coronal reformats This CT examination was performed using dose optimization techniques as appropriate, variously including the following: *Automated exposure control *Adjustment of mA and/or kV according to patient size (this includes techniques or standardized protocols for targeted exams where dose is matched to indication/reason for exam; i.e. extremities or head) *Use of iterative reconstruction technique DLP: 370 mGy-cm FINDINGS: Mild to moderate multilevel degenerative disc disease, most prominent at C5-C6 and C6-C7 with prominent marginal osteophytes. No fracture. No prevertebral soft tissue swelling. Mild left greater than right multilevel facet arthrosis. Degenerative changes at the anterior atlantoaxial junction and faint calcinosis of the transverse ligament. Facet arthrosis and uncovertebral hypertrophy contribute to mild neural foraminal narrowing on the left at C4-C5 and C5-C6. CT/CT cervical spine wo IV con IMPRESSION: 1. No cervical spine fracture or traumatic subluxation. 2. Mild to moderate multilevel degenerative disc disease, most prominent at C5-C6 and C6-C7. 3. Mild left greater than right multilevel facet arthrosis. 4. Mild neural foraminal narrowing on the left at C4-C5 and C5-C6. Fleischner guidelines were followed. Electronically signed by: Hiram Yao MD 12/25/2023 11:34 AM CALEB
== END 2023-12-25 07:35 | disposition home or self-care (01) ==
LOC: HO.CT 07:34
PROVIDERS: PCP Internal Medicine; Visit Provider Physical Medicine & Rehabilitation
DX: M54.12 Radiculopathy, cervical region (principal)
CPT/HCPCS: 72125

== ENCOUNTER 2024-03-19 10:04 | Outpatient (REF) | payer MEDICARE, SELFPAY ==
--- OUTSIDE RECORDS SUMMARY | 2024-03-19 10:59 | XMS_ITS | Encounter Summary ---
Author Organization [facility] Address [phone] [place] [address] Care Team Providers Care Metal Mockup Maker Name Role Phone Oscar Ma MD Primary Care Provider Encounter Details Date Type Department Care Team (Late st Contact Info) Description 05/01/2017 Ancillary Orders [facility], X-[address] [address] Chidi Rg PA [address] [place] [phone] [email or web address] Results Lumbar stenosis with neurogenic claudication; Pseudarthrosis after fusion or arthrodesis Social History Tobacco Use Types Packs/Day Years Used Date Smoking Tobacco: Never Assessed Sex and Gender Information Value Date Recorded Sex Assigned at Not on file Gender Identity Not on file Sexual Orientation Not on file documented as of this encounter Plan of Treatment Not on file documented as of this encounter Results * XR LUMBOSACRAL SPINE BENDING VIEWS ONLY (05/01/2017 9:57 AM EDT) Anatomical Region Laterality Modality L-spine Radiographic Romina ging 05/01/2017 10:0 1 AM EDT Impressions 05/01/2017 10:04 AM EDT Mild grade 1 L1-2 spondylolisthesis which decreases in flexion and increases in extension. ??Grossly stable minimal grade 1 L4-5 spondylolisthesis. POS [id number] Narrative 05/01/2017 10:04 AM EDT COMPARISON: ??None FINDINGS: Lateral views obtained in neutral, flexion, and extension positioning only were obtained. ??There is a very equivocal 2-3 mm anterolisthesis of the L4 in relation to L5 vertebral bodies which does not definitively change between flexion or extension. ??In the neutral position there is an approximate 5 mm retrolisthesis of the L1 in relation to L2 vertebral bodies which increases to 7 mm in extension and decreases to 3 mm in flexion. ??No other discrete spondylolisthesis or instability apparent. ??No vertebral body compression deformity. Procedure Note Marquise Draper MD - 05/01/2017 COMPARISON: None FINDINGS: Lateral views obtained in neutral, flexion, and extension positioningonly were obtained. There is a very equivocal 2-3 mm anterolisthesis ofthe L4 in relation to L5 vertebral bodies which does not definitivelychange between flexion or extension. In the neutral position there is anapproximate 5 mm retrolisthesis of the L1 in relation to L2 vertebralbodies which increases to 7 mm in extension and decreases to 3 mm inflexion. No other discrete spondylolisthesis or instability apparent. Novertebral body compression deformity. IMPRESSION: Mild grade 1 L1-2 spondylolisthesis which decreases in flexion andincreases in extension. Grossly stable minimal grade 1 L4-5spondylolisthesis. POS [id number] Chidi HUTCHINS IMG XR SPINE documented in this encounter Visit Diagnoses Diagnosis Lumbar stenosis with neurogenic claudication Pseudarthrosis after fusion or arthrodesis Arthrodesis status Lumbar stenosis with neurogenic claudication Pseudarthrosis after fusion or arthrodesis Arthrodesis status documented in this encounter Care Teams Metal Mockup Maker Relationship Specialty Start Date End Date Oscar Ma MD [address] [place] [address] [place] [id number] PCP - General Internal Medicine 05/01/17 documented as of this encounter Additional Source Comments The information contained in this document represents components of the legal health record. It is not the complete legal health record.[facility]
--- OUTSIDE RECORDS SUMMARY | 2024-03-19 10:59 | XMS_ITS | Clinical Summary ---
Author Organization [facility] Address [phone] [facility] [place] [address] Care Team Providers Care Climatology Teacher Name Role Phone sOcar Ma MD Primary Care Provider Social History Tobacco Use Types Packs/Day Years Used Date Smoking Tobacco: Never Assessed Sex and Gender Information Value Date Recorded Sex Assigned at Not on file Gender Identity Not on file Sexual Orientation Not on file Plan of Treatment Not on file Medical Devices Not on file Care Teams Climatology Teacher Relationship Specialty Start Date End Date Oscar Ma MD [address] [place] [address] [place] [id number] PCP - General Internal Medicine 05/01/17 Additional Source Comments The information contained in this document represents components of the legal health record. It is not the complete legal health record.[facility]
[2024-03-19 13:06] LABS: MANUAL DIFF FLAG NO
[2024-03-19 13:15] LABS: Basophils Absolute Auto 0.1 X10*3/uL (0.0-0.2); Basophils Percent Auto 1.3 % (0-2); Eosinophils Absolute Auto 0.1 X10*3/uL (0.0-0.4); Eosinophils Percent Auto 2.8 % (0-4); Hematocrit 42.4 % (37.0-47.0); Lymphocytes Absolute Auto 1.1 X10*3/uL (1.2-4.9); Lymphocytes Percent Auto 27.1 % (20-40); Mean Corpuscular Hemoglobin 30.4 pg (27.0-33.0); Mean Platelet Volume 11.6 fL (9.4-12.3); Monocytes Absolute Auto 0.4 X10*3/uL (0.1-1.2); Monocytes Percent Auto 10.1 % (2-11); Neutrophils Absolute Auto 2.3 x10*3/uL (2.0-8.3); Neutrophils Percent Auto 58.7 % (45-73); Platelet Count 278 X10*3/uL (160-400); Red Blood Count 4.61 X10*6/uL (4.20-5.50); Red Cell Distribution Width 13.5 % (11.0-16.0); White Blood Count 3.9 X10*3/uL (4.8-10.8)
[2024-03-19 13:40] LABS: Alanine Aminotransferase 20 U/L (0-31); Alkaline Phosphatase 60 U/L (39-117); Anion Gap 12 (12-20); Aspartate Amino Transferase 22 U/L (5-31); Bilirubin Total 0.8 mg/dL (0.0-1.0); Blood Urea Nitrogen 10 mg/dL (9-16); Calcium 9.3 mg/dL (8.4-10.2); Carbon Dioxide 27 mmol/L (22-29); Chloride 106 mmol/L (96-108); Estimated Glomerular Filt Rate > 60; Glucose Random 91 mg/dL (60-115); Potassium 4.5 mmol/L (3.3-5.1); Sodium 140 mmol/L (135-145); Total Protein 7.2 g/dL (6.5-8.0)
== END 2024-03-19 10:05 | disposition home or self-care (01) ==
LOC: HO.HMGCLDS 10:04
PROVIDERS: PCP Internal Medicine; Visit Provider Internal Medicine
DX: I10 Essential (primary) hypertension (principal); K21.9 Gastro-esophageal reflux disease without esophagitis; M94.0 Chondrocostal junction syndrome [Tietze]
CPT/HCPCS: 36415; 80053; 85025

== ENCOUNTER → 2024-03-20 12:44 | Outpatient (BNVA) | payer MEDICARE, SELFPAY | PROVIDERS: PCP Internal Medicine; Visit Provider Internal Medicine Cardiovascular Disease | DX: I10 Essential (primary) hypertension (principal); E78.5 Hyperlipidemia, unspecified; R06.02 Shortness of breath | CPT/HCPCS: 93005; 99202 ==

== ENCOUNTER → 2024-05-14 07:47 | Outpatient (REF) | payer MEDICARE, SELFPAY ==
--- NOTE | ~2024-05-14 | NM_ITS ---
Lexiscan Myocardial perfusion study Indication: Shortness of breath Technique: The patient was brought in for a Lexiscan perfusion study on 05/14/2024 and was injected 0.4 mg of Lexiscan intravenously. Within a minute of this injection 30 mCi of sestamibi was given intravenously. Images were obtained using the SPECT gamma camera interlaced with the gating device. Images were obtained in supine position. Resting perfusion study was performed on 05/15/2024. Patient was administered 30 mCi of sestamibi intravenously at rest. Images were then obtained in supine position. Total DLP 82 mGy-cm. Images were processed with the software and compared side to side in short axis, horizontal long axis and vertical long axis views. Findings: Raw aquisition reviewed. The stress perfusion study showed no significant perfusion abnormality. Both uncorrected as well as CT attenuation corrected images were reviewed. The gated study shows normal LV systolic function with calculated LVEF of 55%. LV cavity is normal in size. The gated study shows normal wall thickening and contraction of segments. Resting study shows no significant perfusion abnormality. Gating at rest reveals normal wall motion with ejection fraction at 55%. The findings are consistent with no clear reversible or fixed perfusion abnormality. NM/NM esdras perf SPECT rest & str Impression: 1. Myocardial perfusion imaging study shows normal myocardial perfusion. 2. Gated LVEF is 55% during stress and rest. 3. Transient ischemic dilatation not present. EKG component of the test reported separately. Electronically signed by: Jose Elias Sorto MD 05/15/2024 04:30 PM EDT
--- OUTSIDE RECORDS SUMMARY | 2024-05-14 07:50 | XMS_ITS | Encounter Summary ---
Author Organization [facility] Address [address] [place] [phone] Phone Care Team Providers Care Delivery Truck Driver Name Role Phone Oscar Ma MD Primary Care Provider Encounter Details Date Type Department Care Team (Late st Contact Info) Description 05/01/2017 Ancillary Orders [facility] [address] Chidi Rg PA [address] [place] [phone] [email or web address] Lumbar stenosis with neurogenic claudication; Pseudarthrosis after [...] status documented in this encounter Care Teams Delivery Truck Driver Relationship Specialty Start Date End Date Oscar Ma MD [address] [place] [address] Dr Walsh, [place] [id number] PCP - General Internal Medicine 05/01/17 documented as of this encounter Additional Source Comments The information contained in this document represents components of the legal health record. It is not the complete legal health record.[facility]
--- OUTSIDE RECORDS SUMMARY | 2024-05-14 07:50 | XMS_ITS | Clinical Summary ---
Author Organization [address] [address] Phone Care Team Providers Care Approver Name Role Phone Oscar Ma MD Primary Care Provider Social History Tobacco Use Types Packs/Day Years Used Date Smoking Tobacco: Never Assessed Sex and Gender Information Value Date Recorded Sex Assigned at Not on file Gender Identity Not on file Sexual Orientation Not on file Plan of Treatment Not on file Medical Devices Not on file Care Teams Approver Relationship Specialty Start Date End Date Oscar Ma MD [address] [place] [address] [place] [id number] PCP - General Internal Medicine 05/01/17 Additional Source Comments The information contained in this document represents components of the legal health record. It is not the complete legal health record.[facility]
--- NOTE | 2024-05-14 07:52 | CA_ITS ---
Transthoracic Echocardiogram Patient (Last, First, Middle): Franca Jerome, Gender: Female Date of : 1955 Age: 68 Procedure Date: 05/14/2024 Procedure Type: Transthoracic Echocardiogram Location: OP Height: 165.1 cm Weight: 88.45 kg BSA: 1.96 m2 Heart Rate: bpm BP: 128 / 86 mmHg Recordak Operator: TO Referring MD: Masoud Lantigua MD Symptoms: R06.02 - Shortness of breath Study Quality: Fair, contrast ECG Rhythm: Sinus Conclusions: - The left ventricular systolic function is normal. The calculated ejection fraction is 67% by biplane method. - The mid inferolateral segment is hypokinetic. - No obvious valvular pathology seen on this study. Findings Procedure Information Contrast agent, definity, is being given per protocol without apparent complications. Left Ventricle Normal left ventricular cavity size. The left ventricular systolic function is normal. The calculated ejection fraction is 67% by biplane method. There is no evidence of regional wall motion abnormalities. Diastolic function is normal for age. There is mild septal asymmetric hypertrophy. Wall Motion Rest Echo Findings The mid inferolateral segment is hypokinetic. Right Ventricle Normal right ventricular cavity size and systolic function. Aortic Valve There is a normal trileaflet aortic valve. There is mild calcification of the aortic valve. There is no aortic valve stenosis. There is no aortic valve regurgitation. Mitral Valve The mitral valve appears normal. There is no mitral valve regurgitation. There is no mitral valve stenosis. Pulmonic Valve The pulmonic valve is likely normal. Tricuspid Valve Normal tricuspid valve structure. There is trace tricuspid valve regurgitation. There is no evidence of pulmonary hypertension. Great Vessels The asc aorta is normal in size. Small plaque is seen in the sino tubular ridge. Venous The inferior vena cava is normal in size and collapses less than 50% with inspiration. Pericardium/Pleural There is no evidence of pericardial effusion. Prior Study Comparison No prior study available for comparison. Recommendations, Care & Conclusions No obvious valvular pathology seen on this study. Measurements 2D Linear Measurements IVSd: 1.18 0.6-0.9/0.6-1.0 cm LVIDd: 4.04 3.9-5.3/4.2-5.9 cm LVIDd Index: 2.06 2.4-3.2/2.2-3.1 cm/m2 LVIDs: 2.64 2.0-3.6 cm LVPWd: 0.96 0.7-1.1 cm LA Diam: 3.10 2.7-3.8/3.0-4.0 cm LAIDs Index: 1.58 1.5-2.3 cm/m2 LV Mass: 177.37 67-162/88-224 g LV Mass Index: 90.50 43-95/49-115 g/m2 LVOT Diam: 2.30 3.0+(-)1.3 cm 2D Systolic Function EF 4C: 63.70 >55% EF 2C: 69.10 >55% EF BiP: 66.90 >55% Mitral Valve MV Pk E: 0.41 MV PK A: 0.51 MV Decel Time: 216.00 E/A: 0.80 E'Lateral: 8.70 E'Medial: 5.87 E/E' Med: 6.90 E/E' Lat: 4.70 PHT: 63.00 MVA PHT: 3.49 Decel [place]in: 1.88 Aortic Valve AoV Pk Rowdy: 1.54 AoV Mn Rowdy: 0.97 AoV VTI: 0.34 AoV Pk Grad: 9.00 Aov Mn Grad: 4.00 GEOVANY Cont.VTI: 2.48 LVOT LVOT Pk Rowdy: 0.84 LVOT Mn Rowdy: 0.56 LVOT VTI: 0.20 LVOT Pk Grad: 3.00 LVOT Mn Grad: 1.00 LVOT Diam: 2.30 LVOT Area: 4.15 Diastolic Function MV Pk E: 0.41 MV Pk A: 0.51 E/A: 0.80 E'Medial: 5.87 E/E' Med: 6.90 E' Laterial: 8.70 E/E' Lat: 4.70 Right Ventricle TAPSE (mm): 21.30 TVS' Rowdy: 10.70 Tricuspid Valve RA Press: 3.00 Great Vessels Aorta Sinus of Valsalva: 3.78 2.0-3.[address] Ridge: 2.59 1.7-3.4 cm Ao Asc: 3.80 2.1-3.4 cm Ao Arch: 3.10 Updated in Other Vendor System with Status of Final Jose Elias Sorto MD electronically signed on 05/16/2024 1:32:34 PM with status of Final
--- NOTE | 2024-05-14 07:52 | CA_ITS ---
Acquisition Time: 2024-05-14 09:13:56 Total Exercise Time: 00:02:00 Test Indications: SOB Medications: SEE H&P Protocol: LEXISCAN Max HR: 92 BPM 60% of Pred: 151 BPM Max BP: 122/74 mmHG Max Work Load: 1.0 METS Pharmacological stress test with Lexiscan while pt marches in her chair, with reports of SOB, lightheadedness and 6/10 chest tightness, without any arrythmias, with normotensive response to injection. Nondiagnostic EKG for ischemia. In recovery, pt treated with IVP Aminophylline 75 mg to reverse Lexiscan, after which pt feeling back to baseline. Nuclear images pending. Test reviewed with Dr. Sorto. Referred By: Masoud Lantigua Electronically Signed By: Lonnie Lawson
== END ==
LOC: HO.CARD 07:47
PROVIDERS: PCP Internal Medicine; Visit Provider Internal Medicine Cardiovascular Disease
DX: R06.02 Shortness of breath (principal)
CPT/HCPCS: 78452; 93017; 93306; A9500; J0280; J2785; Q9957

== ENCOUNTER → 2024-05-14 07:52 | Outpatient (BNV) | payer MEDICARE, SELFPAY | PROVIDERS: PCP Internal Medicine | DX: I42.2 Other hypertrophic cardiomyopathy (principal); I35.8 Other nonrheumatic aortic valve disorders | CPT/HCPCS: 78452; 93016; 93018; 93320; 93325; 93350; 93352 ==

== ENCOUNTER 2024-05-16 14:10 | Outpatient (AMB) | payer MEDICARE, SELFPAY ==
[2024-05-16 14:31] VITALS: BP 110/62; PULSE 75; BMI 34.3
--- NOTE | 2024-05-16 14:31 | MHC.OFFVIS ---
Vital Signs 05/16/24 14:31 Height 5 ft 5 in Weight 206 lb 5.643 oz BMI 34.3 BP 110/62 Blood Pressure Location Rt brachial Position Sitting Pulse 75 Pulse Source Pulse Oximeter Intake Visit Reasons: F/U s/p stress test Mechanism Inspector Required: No Allergies No Known Allergies Allergy (Mild, Verified 05/16/24 14:33) NONE Medication List - Last Reconciled 05/16/24 by Lonnie Lawson NP acetaminophen 650 mg (2 x 325 mg) PO Q6H PRN 30 days atorvastatin 10 mg PO DAILY cholecalciferol (vitamin D3) (Vitamin D3) 25 mcg PO DAILY clonazepam 1 mg PO DAILY diltiazem HCl CD 120 mg PO DAILY magnesium 200 mg PO DAILY omeprazole 20 mg PO DAILY PRN paroxetine HCl 20 mg PO DAILY HPI Comments Details: This is a 68-year-old female patient presenting for a follow-up visit. Patient has a history of hypertension and hyperlipidemia and was previously seen in the office for exertional shortness of breath and chest tightness for which she underwent an echocardiogram and stress test. The patient continues to report ongoing symptoms of chest tightness associated with shortness of breath with exertion. Initially, patient thought this is due to fibromyalgia, but she now feels that it is different in his was an over time. She denies any other symptoms including palpitations, dizziness, fatigue, orthopnea, PND, leg edema, presyncope, or syncope. [facility] Medical History COVID-19 vaccine series completed Muscle spasm Hx of thoracic outlet syndrome GERD (gastroesophageal reflux disease) History of dysphagia History of shingles Back pain Arthritis Fibromyalgia Anxiety Depression Head ache Hx of bronchiolitis Elevated cholesterol HTN (hypertension) Surgical History Hx of arthroscopy of right knee History of total right knee replacement (TKR) H/O excision of ganglion cyst Hx of tonsillectomy Hx of spinal fusion History of right hip hemiarthroplasty History of surgery on right wrist Hx of colonoscopy Social History Are you a primary property caretaker to a significant other at home: No Do you presently have visiting nurse or other home services: No Alcohol intake: current Alcohol intake frequency: a few times a month Alcohol type: wine Second Hand Smoke Exposure: No service: No Current occupational status: retired Review of Systems ENT Reports dizziness Card Denies chest pain, Denies chest pain at rest, Denies chest pain with activity, Denies rapid heart rate, Denies pedal edema, Denies edema, Denies leg edema, Denies lightheadedness, Denies palpitations, Denies dyspnea, Denies dyspnea on exertion and Denies orthopnea Resp Denies cough, Denies dyspnea and Denies dyspnea on exertion GI Denies hematochezia and Denies change in stool character Musc Denies abnormal gait, Reports limited range of motion, Reports muscle cramps, Denies muscle weakness, Denies numbness, Denies radiating pain into limb, Denies stiffness and Denies tingling Neuro Denies abnormal gait, Reports dizziness, Denies numbness and Denies tingling Endo Denies palpitations Physical Exam Vital Signs: Last Vital Signs Pulse 75 05/16/24 14:31 BP 110/62 05/16/24 14:31 BMI result Body Mass Index 34.3 Const General: cooperative, healthy appearing, comfortable and no acute distress Orientation/consciousness: patient oriented x3 HEENT Head: Yes normal to inspection Neck Neck: Yes normal visual inspection, Yes trachea midline and Yes supple Chest Chest palpation & inspection: normal inspection of the chest Resp Effort & Inspection: normal respiratory effort Auscultation: clear to auscultation bilaterally, no crackles, no rales, no rhonchi and no wheezes Cardio Jugular venous distension: no JVD Palpation: normal PMI Rate: regular rate Rhythm: regular rhythm Heart sounds: S1 normal heart sound present, S2 normal heart sound present, no click, no gallops, no murmurs and no rubs Peripheral pulses: Peripheral pulses 2+ throughout GI Inspection: Yes normal to inspection Palpation (GI): Soft to palpation Auscultation: normal bowel sounds Skin General skin exam: no rashes or lesions noted Neuro General: patient oriented x3 Extrem General: Yes normal to inspection, No no pedal edema and No calf tenderness Psych Appearance: grossly normal Mental Status: mental status grossly normal Speech and movement: Normal speech and movement present Assessment & Plan Assessment & Plan (1) Abnormal echocardiogram: Code(s): R93.1 - Abnormal findings on diagnostic imaging of heart and coronary circulation Category: Medical (2) Elevated cholesterol: Code(s): E78.00 - Pure hypercholesterolemia, unspecified Category: Medical (3) Short of breath on exertion: Code(s): R06.02 - Shortness of breath Category: Medical (4) Chest pain: Code(s): R07.9 - Chest pain, unspecified Category: Medical Plan 05/14/2024-patient underwent myocardial perfusion study with Lexiscan which was normal. [id number] also underwent an echocardiogram that showed a normal EF at 67% with mid inferolateral segment being hypokinetic and no obvious valvular pathology. Given the patient's ongoing symptoms in the presence of hypokinetic inferolateral segment of the heart wall despite normal ejection fraction warrants further evaluation to determine the cause. We will pursue a cardiac catheterization to further assess for coronary artery disease. The procedure along with the indications, risks, and potential benefits was thoroughly discussed with the patient. The patient was informed about the potential need for a stent placement. The patient expressed understanding and agrees to proceed with the planned cardiac catheterization. Latest LDL not within goal, we will increase her statin dose. We will repeat labs with the LDL goal less than 70. We will also start her on daily aspirin therapy. Blood pressure within goal. States blood pressures at home have been stable as well. Advised to continue monitoring blood pressures at home and keep a log of it. Ideally, blood pressure goal less than 130/80. We will follow up with the patient following cardiac catheterization. In the interim, advised patient to call the office with any concerns or change in symptoms. Advised patient to seek ER care in case of exertional chest pain not resolved with rest. This note was generated using voice recognition software. While every effort has been made to ensure accuracy and proper grading machine feeder, there may be occasional errors that could affect the content or meaning of the described symptoms. Orders: Orders Lipid Panel Today R06.02 - Shortness of breath Complete Blood Count no Diff Today R06.02 - Shortness of breath Prothrombin Time INR Today R06.02 - Shortness of breath Cardiac Cath LT w PCI Today R06.02 - Shortness of breath, R93.1 - Abnormal findings on diagnostic imaging of heart and coronary circulation Basic Metabolic Panel Today R06.02 - Shortness of breath, R93.1 - Abnormal findings on diagnostic imaging of heart and coronary circulation Medications: New aspirin (Adult Aspirin Regimen) 81 mg PO DAILY 90 tabs 3RF atorvastatin 40 mg PO DAILY 90 tabs 3RF Coding Level of Care Code Est Pt Level 4 (59247) Complex EM visit Add On G2211 Diagnoses Abnormal echocardiogram R93.1 Elevated cholesterol E78.00 Short of breath on exertion R06.02 Chest pain R07.9 Time Spent (min) 34 Comment Time spent in reviewing the chart, test results, assessment, counseling and documentation.
--- OUTSIDE RECORDS SUMMARY | 2024-05-16 15:53 | XMS_ITS | Clinical Summary ---
Author Organization [address] [address] Phone Care Team Providers Care Arranging Funeral Director Name Role Phone Oscar Ma MD Primary Care Provider Social History Tobacco Use Types Packs/Day Years Used Date Smoking Tobacco: Never Assessed Sex and Gender Information Value Date Recorded Sex Assigned at Not on file Gender Identity Not on file Sexual Orientation Not on file Plan of Treatment Not on file Medical Devices Not on file Care Teams Arranging Funeral Director Relationship Specialty Start Date End Date Oscar Ma MD [address] [place] [address] [place] [id number] PCP - General Internal Medicine 05/01/17 Additional Source Comments The information contained in this document represents components of the legal health record. It is not the complete legal health record.[facility]
--- OUTSIDE RECORDS SUMMARY | 2024-05-16 15:53 | XMS_ITS | Encounter Summary ---
Author Organization [facility] Address [address] [place] [phone] Phone Care Team Providers Care Online Marketing Manager Name Role Phone Oscar Ma MD Primary Care Provider Encounter Details Date Type Department Care Team (Late st Contact Info) Description 05/01/2017 Ancillary Orders [facility]-[address] [address] Chidi Rg PA [address] [place] [phone] [email or web address] Lumbar stenosis with neurogenic claudication; Pseudarthrosis [...] status documented in this encounter Care Teams Online Marketing Manager Relationship Specialty Start Date End Date Oscar Ma MD [address] [place] [address] Dr Walsh, MIGUEL ANGEL [id number] PCP - General Internal Medicine 05/01/17 documented as of this encounter Additional Source Comments The information contained in this document represents components of the legal health record. It is not the complete legal health record.[facility]
== END 2024-05-16 15:24 | disposition home or self-care (01) ==
LOC: HO.HCS 14:10
PROVIDERS: PCP Internal Medicine
DX: R93.1 Abnormal findings on diagnostic imaging of heart and coronary circulation (principal); E78.00 Pure hypercholesterolemia, unspecified; R06.02 Shortness of breath; R07.9 Chest pain, unspecified
CPT/HCPCS: 99214; G2211

== ENCOUNTER → 2024-05-16 14:10 | Outpatient (BNVA) | payer MEDICARE, SELFPAY | PROVIDERS: PCP Internal Medicine | DX: R93.1 Abnormal findings on diagnostic imaging of heart and coronary circulation (principal); R06.02 Shortness of breath; R07.9 Chest pain, unspecified; E78.00 Pure hypercholesterolemia, unspecified | CPT/HCPCS: 99212 ==

== ENCOUNTER 2024-06-11 09:36 | Outpatient (REF) | payer MEDICARE, SELFPAY ==
--- OUTSIDE RECORDS SUMMARY | 2024-06-11 10:24 | XMS_ITS | Clinical Summary ---
Author Organization [address] [address] Phone Care Team Providers Care Inclusion Paraeducator Name Role Phone Oscar Ma MD Primary Care Provider Social History Tobacco Use Types Packs/Day Years Used Date Smoking Tobacco: Never Assessed Sex and Gender Information Value Date Recorded Sex Assigned at Not on file Gender Identity Not on file Sexual Orientation Not on file Plan of Treatment Not on file Medical Devices Not on file Care Teams Inclusion Paraeducator Relationship Specialty Start Date End Date Oscar Ma MD [address] [place] [address] [place] [id number] PCP - General Internal Medicine 05/01/17 Additional Source Comments The information contained in this document represents components of the legal health record. It is not the complete legal health record.[facility]
--- OUTSIDE RECORDS SUMMARY | 2024-06-11 10:24 | XMS_ITS | Encounter Summary ---
Author Organization [facility] Address [address] [place] [phone] Phone Care Team Providers Care Costume Designer Name Role Phone Oscar Ma MD Primary Care Provider Encounter Details Date Type Department Care Team (Late st Contact Info) Description 05/01/2017 Ancillary Orders [facility] [address] Courtney Rg PA [address] [place] [phone] [email or web address] Lumbar stenosis with neurogenic claudication; Pseudarthrosis [...] stable minimal grade 1 L4-5spondylolisthesis. POS [id number] Courtney [facility] XR SPINE documented in this encounter Visit Diagnoses Diagnosis Lumbar stenosis with neurogenic claudication Pseudarthrosis after fusion or arthrodesis Arthrodesis status Lumbar stenosis with neurogenic claudication Pseudarthrosis after fusion or arthrodesis Arthrodesis status documented in this encounter Care Teams Costume Designer Relationship Specialty Start Date End Date Oscar Ma MD [address] [place] [address] Dr Walsh, [place] [id number] PCP - General Internal Medicine 05/01/17 documented as of this encounter Additional Source Comments The information contained in this document represents components of the legal health record. It is not the complete legal health record.[facility]
[2024-06-11 13:40] LABS: Hemoglobin 14.4 g/dl (12.0-16.0); Mean Corpuscular HGB Conc 32.7 g/dl (31.0-35.0); Mean Corpuscular Hemoglobin 30.4 pg (27.0-33.0); Mean Corpuscular Volume 92.8 fL (80.0-98.0); Mean Platelet Volume 11.9 fL (9.4-12.3); Platelet Count 279 X10*3/uL (160-400); Red Blood Count 4.74 X10*6/uL (4.20-5.50); Red Cell Distribution Width 13.3 % (11.0-16.0); White Blood Count 3.2 X10*3/uL (4.8-10.8)
[2024-06-11 13:47] LABS: INTERNATIONAL NORM RATIO 0.9 (0.9-1.1)
[2024-06-11 13:53] LABS: Anion Gap 13 (12-20); Blood Urea Nitrogen 14 mg/dL (9-16); Calcium 9.4 mg/dL (8.4-10.2); Carbon Dioxide 27 mmol/L (22-29); Chloride 107 mmol/L (96-108); Cholesterol 172 mg/dL (<200); Estimated Glomerular Filt Rate > 60; Glucose Random 80 mg/dL (60-115); HDL Cholesterol 55 mg/dL (>40); LDL Cholesterol Calculated 102 mg/dL (<100); Potassium 4.6 mmol/L (3.3-5.1); Sodium 142 mmol/L (135-145); Triglycerides 75 mg/dL (<150)
== END 2024-06-11 09:37 | disposition home or self-care (01) ==
LOC: HO.HMGCLDS 09:36
PROVIDERS: PCP Internal Medicine
DX: R06.02 Shortness of breath (principal); R93.1 Abnormal findings on diagnostic imaging of heart and coronary circulation
CPT/HCPCS: 36415; 80048; 80061; 85027; 85610

== ENCOUNTER → 2024-06-19 23:59 | Outpatient (BNV) | payer MEDICARE, SELFPAY | PROVIDERS: PCP Internal Medicine; Visit Provider Internal Medicine Cardiovascular Disease | DX: I20.89 Other forms of angina pectoris (principal) | CPT/HCPCS: 93458; 99152 ==

== ENCOUNTER 2024-07-17 14:04 | Outpatient (AMB) | payer MEDICARE, SELFPAY ==
[2024-07-17 13:42] VITALS: BP 124/76; PULSE 79; TEMP 36.9; O2SAT 98; BMI 33.8
--- NOTE | 2024-07-17 13:42 | MHC.PC.OV ---
Vital Signs 07/17/24 13:42 Height 5 ft 5 in Weight 203 lb BMI 33.8 BP 124/76 Blood Pressure Location Lt brachial Position Sitting Pulse 79 Pulse Source Pulse Oximeter Temp 98.4 F Temp Source Axillary Pulse Oximetry (%) 98 Oxygen Delivery Method Room Air Intake Visit Reasons: Pre-op [employer] Work Supervisor Required: No Accompanied by: Self / Same As Patient Allergies No Known Allergies Allergy (Mild, Verified 07/17/24 13:43) NONE Tobacco use date assessed: 07/17/24 Fall risk assessment: No Falls in past year (but she's loosing balance. ) Last assessed Fall Risk: 07/17/24 Dental Screening Dental Screen Date: 07/17/24 Did you have a dental visit in the last 12 months?: Yes Did you have a dental problem in the last 6 months where you did not have access to dental care?: No HPI HPI Comments History of Present Illness Details This is a 68-year-old female with a past medical history of hypertension, hyperlipidemia, shortness of breath, anxiety, OA, fibromyalgia presenting for preoperative exam for b/l cataract with Dr Diaz. Patient kayaks for exercise without shortness of breath No problems with anesthesia in the past No history of sleep apnea. CV: Patient had cardiac catheterization 06/2024 with no significant CAD. She had been experiencing some shortness of breath. She is improved. Thought to be secondary to costochondritis. History of plantar fasciitis -tried stretches, inserts. Would like ortho referral Mammo 12/2022 Colon cancer screening UTD ROS CONSTITUTIONAL: Denies weight loss, fever and chills. HEENT: Denies changes in vision and hearing. RESPIRATORY: Denies SOB and cough. CV: Denies palpitations and CP GI: Denies abdominal pain, nausea, vomiting and diarrhea. : Denies dysuria and urinary frequency. MSK: see HPI SKIN: Denies rash and pruritus. NEUROLOGICAL: Denies headache PSYCHIATRIC: Denies recent changes in mood. PHYSICAL EXAM: GENERAL: Alert and oriented x 3. NAD EYES: EOMI. Anicteric. HENT: Moist mucous membranes. No scleral icterus. No cervical lymphadenopathy. LUNGS: Clear to auscultation bilaterally. CARDIOVASCULAR: Regular rate and rhythm. No murmur. No JVD. ABDOMEN: Soft, non-tender +bs EXTREMITIES: No edema. Non-tender. SKIN: No rashes or lesions. Warm. NEUROLOGIC: No focal neurological deficits. CN II-XII grossly intact PSYCHIATRIC: Cooperative. Appropriate mood and affect [facility] Medical History COVID-19 vaccine series completed Muscle spasm Hx of thoracic outlet syndrome GERD (gastroesophageal reflux disease) History of dysphagia History of shingles Back pain Arthritis Fibromyalgia Anxiety Depression Head ache Hx of bronchiolitis Elevated cholesterol HTN (hypertension) Surgical History Hx of arthroscopy of right knee History of total right knee replacement (TKR) H/O excision of ganglion cyst Hx of tonsillectomy Hx of spinal fusion History of right hip hemiarthroplasty History of surgery on right wrist Hx of colonoscopy (~12/10/19) Family History Mother No problems noted. Father No problems noted. Social History Housing: House Are you a primary home care rn to a significant other at home: No Do you presently have visiting nurse or other home services: No Alcohol intake: current Alcohol intake frequency: a few times a month Alcohol type: wine Patient Tobacco Use Status: Former Tobacco user e-Cigarette/Vaping Use: Former Use Second Hand Smoke Exposure: No service: No Current occupational status: retired Cognitive needs: No Hearing needs: No Vision needs: Yes (rx glasses) Questionnaire PHQ-9 Over the last 2 weeks, how often have you been bothered by any of the following problems? 1. Little interest or pleasure in doing things: not at all 2. Feeling down, depressed, or hopeless: nearly every day 3. Trouble falling or staying asleep, or sleeping too much: not at all 4. Feeling tired or having little energy: not at all 5. Poor appetite or overeating: not at all 6. Feeling bad about yourself - or that you are a failure or have let yourself or your family down: not at all 7. Trouble concentrating on things, such as reading the newspaper or watching television: not at all 8. Moving or speaking so slowly that other people could have noticed. Or the opposite - being so fidgety or restless that you have been moving around a lot more than usual: not at all 9. Thoughts that you would be better off or of hurting yourself in some way: not at all Total score: 3 Depression Screening Interpretation: Negative Depression Screening Done: Yes 41478 - PHQ-9 Billing: Yes Source: Developed by Drs. Yan Hernandez, Gaye Romero, Francois Prince and colleagues, with an educational arleth from [employer]. Thrive Questionnaire Date Thrive assessed: 07/17/24 I am a: Patient Within the past 12 months, did the food you bought not last and you didn't have the money to get more?: Never true Within the past 12 months, did you worry whether your food would run out before you got money to buy more?: Never true Do you have trouble paying for medicines?: No Do you have trouble getting transportation to medical appointments?: No Do you have trouble paying your heating and electricity bill?: No Do you have trouble taking care of your child, family member or friend?: No Do you have trouble with day-to-day activities such as bathing, preparing meals, shopping, managing finances, etc.?: No Are you currently unemployed and looking for a job?: No Are you interested in more education?: No THRIVE Score: 0 AUDIT C Alcohol Use Questionnaire (AUDIT-C) 1. How often do you have a drink containing alcohol?: Monthly or less 2. How many drinks containing alcohol do you have on a typical day when you are drinking?: 1 or 2 3. How often do you have six or more drinks on one occasion?: Less than monthly Total Score: 2 JAZZMINE-7 AMB Questionnaire JAZZMINE-7 Date JAZZMINE - 7 assessed: 07/17/24 Feeling nervous, anxious, or on edge: 1 = Several days Not being able to stop or control worryin = Not at all Worrying too much about different things: 0 = Not at all Trouble relaxin = Not at all Being so restless that it is hard to sit still: 0 = Not at all Becoming easily annoyed or irritable: 0 = Not at all Feeling afraid as if something awful might happen: 0 = Not at all Total JAZZMINE-7 score (0-4 normal; 5-9 mild; 10-14 moderate; 15-21 severe): 1 Source: Developed by Drs. Yan Hernandez, Gaye Romero, Francois Prince and colleagues, with an educational arleth from [employer]. Physical exam (Primary Care) Vital Signs: Last Vital Signs Temp 98.4 F 07/17/24 13:42 Pulse 79 07/17/24 13:42 BP 124/76 07/17/24 13:42 Pulse Ox 98 07/17/24 13:42 Oxygen Delivery Method Room Air 07/17/24 13:42 BMI result Body Mass Index 33.8 Tobacco/Smoking Status: Tobacco use Status Tobacco use date assessed 07/17/24 07/17/24 13:44 Patient Tobacco Use Status Former Tobacco user 07/17/24 14:13 e-Cigarette/Vaping Use Former Use 07/17/24 14:13 PHQ-9: PHQ-9 Score PHQ-9: Total score 3 07/17/24 14:44 Depression Screening Interpretation: Negative Thrive Assessment: Date of Thrive Assessment Date Thrive assessed 07/17/24 07/17/24 13:44 Coding Level of Care Code New Pt Level 4 (98257) Complex EM visit Add On G2211 Diagnoses Preop cardiovascular exam Z01.810 Additional Codes PHQ-9 - 43885 - PHQ-9 Billing: Yes ([id number]) Assessment & Plan Assessment & Plan (1) Preop cardiovascular exam: Code(s): Z01.810 - Encounter for preprocedural cardiovascular examination Category: Medical Plan Patient is a 68 year old female for preop exam She recently had extensive cardiac testing Chest pain resolved-thought to be secondary to costochondritis No major surgical risk factors METS>/=4 Clear to proceed with surgery without further cardiac testing Orders: Orders Complete Blood Count Auto Diff 07/17/24 Z01.810 - Encounter for preprocedural cardiovascular examination Comprehensive Met. Panel 07/17/24 Z01.810 - Encounter for preprocedural cardiovascular examination XR foot RT min 3V 07/17/24 M72.2 - Plantar fascial fibromatosis Prothrombin Time INR 07/17/24 Z01.810 - Encounter for preprocedural cardiovascular examination Referrals Orthopedics Referral M72.2 - Plantar fascial fibromatosis
--- OUTSIDE RECORDS SUMMARY | 2024-07-17 16:42 | XMS_ITS | Patient Health Record ---
Author Organization [facility] Address [address] [place] [address] Care Team Providers Care Dot Compliance Coordinator Name Role Phone Oscar Ma MD Primary Care Provider Unavaila Rahul Sanchez Unavailable [phone] Reason For Referral No Information Medications Medication SIG (Take, Route, Fr equency, Duration) Notes Start Date End Date Status Bactrim Active Omeprazole 20 MG Orally twice a day Active Sulfacetamide Sodium Active Ibuprofen 600 mg Act jasper Simvastatin 40 MG Orally Ac tive PARoxetine HCl 20 MG Orally Active LORazepam 0.5 MG Orally Act jasper dilTIAZem HCl 120 MG Orally Active Problems Problem Type SNOMED Code ICD Code Onset Dates Problem Status W/U Status Risk Notes Problem Ingrowing nail ([id number]) Ingrowing nail (L60.0) Active confirmed Evidence of prior infection Plan Of Treatment No Information Insurance Providers Payer Name Payer Address Payer Phone Subscriber Number Group Number Insured Name Patient Relationship to Insured Coverage Start Date Coverage End Date [facility] Blue Card [address] [place] [address] [phone] [id number] Mandeep Jerome Spouse - patient is the spouse of the insured Medical (General) History Medical History History ICD Code Arthritis Back pain Back,Hip,and Knee pain Cataracts Depression Diverticulosis Fibromyalgia Glaucoma Headaches Sciatica Raynauds syndrome Measles Mumps Chicken pox Joint implants/screws Transfusions Cholesterol Reflux Surgical History Surgery Date(Month/Year) right knee replacement x5 [phone] 3/20 09 triple spinal fusion 03/1997 thorasic outlet 1985
== END 2024-07-17 14:41 | disposition home or self-care (01) ==
LOC: HO.HMCHD 14:05
PROVIDERS: PCP Internal Medicine; Visit Provider Internal Medicine
DX: Z01.810 Encounter for preprocedural cardiovascular examination (principal)

== ENCOUNTER → 2024-07-17 14:04 | Outpatient (BNVA) | payer MEDICARE, SELFPAY | PROVIDERS: PCP Internal Medicine; Visit Provider Internal Medicine | DX: Z01.810 Encounter for preprocedural cardiovascular examination (principal); I10 Essential (primary) hypertension; E78.5 Hyperlipidemia, unspecified; M79.7 Fibromyalgia; M72.2 Plantar fascial fibromatosis | CPT/HCPCS: 96127; 99202 ==

== ENCOUNTER 2024-07-18 14:32 | Outpatient (REF) | payer MEDICARE, SELFPAY ==
--- NOTE | ~2024-07-18 | XR_ITS ---
EXAMINATION: XR FOOT, RIGHT CLINICAL INFORMATION: M72.2 - Plantar fascial fibromatosis COMPARISON: None available. TECHNIQUE: AP, lateral, and oblique views of the right foot. FINDINGS: No fracture, dislocation, or suspicious bone lesion. No malalignment. Normal plantar arch. Mild degenerative arthritis at the first MTP joint, and at the talonavicular joint. There is a moderate-sized plantar calcaneal spur. XR/XR foot RT min 3V IMPRESSION: 1. No acute bony abnormalities. 2. Mild arthritis involving the first MTP joint and talonavicular joint. 3. There is a large plantar calcaneal spur. Electronically signed by: Cristo Stephenson MD 07/18/2024 03:37 PM EDT
--- OUTSIDE RECORDS SUMMARY | 2024-07-18 14:34 | XMS_ITS | Patient Health Record ---
[facility] Address [address] [place] [address] Care Team Providers Care Calculating Machine Operator Name Role Phone Oscar Ma MD Primary Care Provider Unavaila Rahul Sanchez Unavailable [phone] Reason For Referral No Information Medications Medication [...] W/U Status Risk Notes Problem Ingrowing nail ([id number]) Ingrowing nail (L60.0) Active confirmed Evidence of prior infection Plan Of Treatment No Information Insurance Providers Payer Name Payer Address Payer Phone Subscriber Number Group Number Insured Name Patient Relationship to Insured Coverage Start Date Coverage End Date [facility] Blue Card [address] [place] [address] [phone] [id number] Mandeep Jerome Spouse - patient is the spouse of the insured Medical (General) History Medical History History ICD Code Arthritis Back pain Back,Hip,and Knee pain Cataracts Depression Diverticulosis Fibromyalgia Glaucoma Headaches Sciatica Raynauds syndrome Measles Mumps Chicken pox Joint implants/screws Transfusions Cholesterol Reflux Surgical History Surgery Date(Month/Year) right knee replacement x5 [phone] 3/20 09 triple spinal fusion 03/1997 thorasic outlet 1985
== END 2024-07-18 14:33 | disposition home or self-care (01) ==
LOC: HO.HMGCX 14:32
PROVIDERS: PCP Internal Medicine; Visit Provider Internal Medicine
DX: M72.2 Plantar fascial fibromatosis (principal)
CPT/HCPCS: 73630

== ENCOUNTER → 2024-07-18 14:35 | Outpatient (BNV) | payer MEDICARE, SELFPAY | PROVIDERS: PCP Internal Medicine; Visit Provider Radiology Diagnostic Radiology | DX: M19.071 Primary osteoarthritis, right ankle and foot (principal) | CPT/HCPCS: 73630 ==

== ENCOUNTER 2024-07-24 14:11 | Outpatient (AMB) | payer MEDICARE, SELFPAY ==
--- NOTE | 2024-07-24 14:17 | MHC.OFFVIS ---
Vital Signs 07/24/24 14:18 Height 5 ft 5 in Weight 198 lb 6.656 oz BMI 33.0 BP 122/68 Blood Pressure Location Lt brachial Position Sitting Pulse 68 Pulse Source Pulse Oximeter Intake Visit Reasons: follow up after Cath Allergies No Known Allergies Allergy (Mild, Verified 07/17/24 13:43) NONE Medication List - Last Reconciled 07/24/24 by Lonnie Lawson NP acetaminophen 650 mg (2 x 325 mg) PO Q6H PRN 30 days aspirin (Adult Aspirin Regimen) 81 mg PO DAILY atorvastatin 40 mg PO DAILY cholecalciferol (vitamin D3) (Vitamin D3) 25 mcg PO DAILY clonazepam 1 mg PO DAILY diltiazem HCl CD 120 mg PO DAILY magnesium 200 mg PO DAILY paroxetine HCl 20 mg PO DAILY HPI Comments Details: This is a 68-year-old female patient coming in for a follow-up visit. Patient with a history of hypertension and hyperlipidemia who was previously seen in the office for chest tightness and shortness of breath. Patient underwent an echocardiogram and a stress test. Patient's echocardiogram showed a hypokinetic mid inferolateral segment and therefore subsequently underwent a cardiac catheterization with Dr. Gonsalves. Today, patient reports feeling well overall and denies any cardiac symptoms of exertional chest pain, shortness of breath, palpitations, dizziness, orthopnea, PND, leg edema, presyncope, or syncope. Patient states she has been compliant with all her medications. [facility] Medical History Muscle spasm Hx of thoracic outlet syndrome GERD (gastroesophageal reflux disease) History of dysphagia History of shingles Back pain Arthritis Fibromyalgia Anxiety Depression Head ache Hx of bronchiolitis Elevated cholesterol HTN (hypertension) Surgical History Hx of hand surgery Hx of arthroscopy of right knee History of total right knee replacement (TKR) H/O excision of ganglion cyst Hx of tonsillectomy Hx of spinal fusion History of right hip hemiarthroplasty History of surgery on right wrist Hx of colonoscopy (~12/10/19) Family History Mother No problems noted. Father No problems noted. Social History Housing: House Are you a primary resident care aide to a significant other at home: No Do you presently have visiting nurse or other home services: No Alcohol intake: current Alcohol intake frequency: a few times a month Alcohol type: wine Patient Tobacco Use Status: Former Tobacco user Tobacco use type: Cigarette e-Cigarette/Vaping Use: Former Use Second Hand Smoke Exposure: No service: No Current occupational status: retired Cognitive needs: No Hearing needs: No Vision needs: Yes (rx glasses) Review of Systems Const Denies weakness ENT Denies dizziness Card Denies chest pain, Denies chest pain with activity, Denies syncope, Denies rapid heart rate, Denies pedal edema, Denies edema, Denies leg edema, Denies lightheadedness, Denies palpitations, Denies dyspnea, Denies dyspnea on exertion and Denies orthopnea Resp Denies cough, Denies dyspnea and Denies dyspnea on exertion GI Denies hematochezia and Denies change in stool character Musc Denies abnormal gait, Denies muscle cramps, Denies muscle weakness, Denies numbness, Denies radiating pain into limb and Denies tingling Neuro Denies abnormal gait, Denies dizziness, Denies syncope, Denies numbness, Denies tingling and Denies weakness Endo Denies palpitations Physical Exam Vital Signs: Last Vital Signs Pulse 68 07/24/24 14:18 BP 122/68 07/24/24 14:18 BMI result Body Mass Index 33.0 Const General: cooperative, healthy appearing, comfortable and no acute distress Orientation/consciousness: patient oriented x3 HEENT Head: Yes normal to inspection Neck Neck: Yes normal visual inspection, Yes trachea midline and Yes supple Chest Chest palpation & inspection: normal inspection of the chest Resp Effort & Inspection: normal respiratory effort Auscultation: clear to auscultation bilaterally, no crackles, no rales, no rhonchi and no wheezes Cardio Jugular venous distension: no JVD Palpation: normal PMI Rate: regular rate Rhythm: regular rhythm Heart sounds: S1 normal heart sound present, S2 normal heart sound present, no click, no gallops, no murmurs and no rubs Peripheral pulses: Peripheral pulses 2+ throughout GI Inspection: Yes normal to inspection Palpation (GI): Soft to palpation Auscultation: normal bowel sounds Skin General skin exam: no rashes or lesions noted Neuro General: patient oriented x3 Extrem General: Yes normal to inspection, No no pedal edema and No calf tenderness Psych Appearance: grossly normal Mental Status: mental status grossly normal Speech and movement: Normal speech and movement present Assessment & Plan Assessment & Plan (1) Abnormal echocardiogram: Code(s): R93.1 - Abnormal findings on diagnostic imaging of heart and coronary circulation Category: Medical Plan: 05/14/2024-patient underwent myocardial perfusion study with Lexiscan which was normal. 05/14/2024-echo study showed a normal LV systolic function with an ejection fraction at 67%. It also showed mid inferolateral segment being hypokinetic and therefore subsequently underwent a cardiac catheterization. Refer below. (2) Status post cardiac catheterization: Code(s): Z98.890 - Other specified postprocedural states Plan: 06/19/2024-patient underwent a cardiac catheterization with Dr. Gonsalves at [facility] that showed no significant coronary artery disease. LAD with minimal luminal irregularities. Giving this find an and resolution of her symptoms, no further testing indicated at this time. We will repeat an echo in a year to assess wall motion abnormality. Patient can stop aspirin therapy but should continue statin therapy. (3) HTN (hypertension): Code(s): I10 - Essential (primary) hypertension Category: Medical Plan: Blood pressure today is well-controlled. Continue diltiazem. Advised monitoring blood pressures at home with an ideal goal less than 130/80. (4) Elevated cholesterol: Code(s): E78.00 - Pure hypercholesterolemia, unspecified Category: Medical Plan: Most recent LDL at 102. Continue the increased dose of statin therapy. Ideally, LDL closer to 70. We will repeat lipid profile. Advised heart healthy diet, regular exercise, med compliance, and management of vascular risk factors. Follow up in 1 year with an updated echo, sooner if needed. In the interim, patient will call the office with any concerns or change in symptoms. This note was generated using voice recognition software. While every effort has been made to ensure accuracy and proper insurance marketing rep, there may be occasional errors that could affect the content or meaning of the described symptoms. Orders: Orders CA echo transthoracic complete 1 Year R93.1 - Abnormal findings on diagnostic imaging of heart and coronary circulation Lipid Panel 3 Months E78.00 - Pure hypercholesterolemia, unspecified Medications: Discontinued aspirin (Adult Aspirin Regimen) Discontinued Reason: Doctor's Order 81 mg PO DAILY 90 tabs 3RF Coding Level of Care Code Est Pt Level 4 (05967) Complex EM visit Add On G2211 Diagnoses Abnormal echocardiogram R93.1 Status post cardiac catheterization Z98.890 HTN (hypertension) I10 Elevated cholesterol E78.00 Time Spent (min) 31 Comment Time spent in reviewing the chart, test results, assessment, counseling and documentation.
[2024-07-24 14:18] VITALS: BP 122/68; PULSE 68; BMI 33.0
--- OUTSIDE RECORDS SUMMARY | 2024-07-24 16:46 | XMS_ITS | Patient Health Record ---
Author Organization [facility] Address [address] [place] [address] Care Team Providers Care School Psychological Examiner Name Role Phone Oscar Ma MD Primary Care Provider Elvia Paez Unavailable [phone] Reason For Referral No Information Medications Medication [...] W/U Status Risk Notes Problem Ingrowing nail ([id number]) Ingrowing nail (L60.0) Active confirmed Evidence of prior infection Encounters Encounter Location Date Provider Diagnosis [facility] [address] [place] [address] 07/21/2024 Elvia Keane Plan Of Treatment Next Appt Details Provider Name:Elvia vega, 09/09/2024 10:30:00 AM, [address] [place], [address], Insurance Providers Payer Name Payer Address Payer Phone Subscriber Number Group Number Insured Name Patient Relationship to Insured Coverage Start Date Coverage End Date [employer] Medicare [id number] [address] [address] [place] [address] [id number] Franca Jerome Self - patient is the insured Medical (General) History Medical History History ICD Code Arthritis Back pain Back,Hip,and Knee pain Cataracts Depression Diverticulosis Fibromyalgia Glaucoma Headaches Sciatica Raynauds syndrome Measles Mumps Chicken pox Joint implants/screws Transfusions Cholesterol Reflux Surgical History Surgery Date(Month/Year) right knee replacement x5 [phone] 3/20 09 triple spinal fusion 03/1997 thorasic outlet 1985
== END 2024-07-24 14:41 | disposition home or self-care (01) ==
PROVIDERS: PCP Internal Medicine
DX: R93.1 Abnormal findings on diagnostic imaging of heart and coronary circulation (principal); Z98.890 Other specified postprocedural states; I10 Essential (primary) hypertension; E78.00 Pure hypercholesterolemia, unspecified
CPT/HCPCS: 99214; G2211

== ENCOUNTER → 2024-07-24 14:11 | Outpatient (BNVA) | payer MEDICARE, SELFPAY | PROVIDERS: PCP Internal Medicine | DX: R93.1 Abnormal findings on diagnostic imaging of heart and coronary circulation (principal); I10 Essential (primary) hypertension; E78.00 Pure hypercholesterolemia, unspecified; Z98.890 Other specified postprocedural states | CPT/HCPCS: 99212 ==

== ENCOUNTER 2024-07-28 06:43 | Day surgery (SDC) | payer MEDICARE, SELFPAY ==
[2024-07-22 08:12] VITALS: BMI 33.8
--- NOTE | 2024-07-25 10:41 | HO.ANESPROP2 ---
Documented by User: Columba Person NP 07/25/24 10:42 HPI - Anesthesia Eval Consult details Narrative: 68yo F for Left Cataract Extraction IOL Insertion No previous cataract on record PMF Active Problems Active Problems: All Active Problems Preop cardiovascular exam (Acute) Plantar fasciitis of right foot (Acute) Chest pain (Acute) Abnormal echocardiogram (Acute) Short of breath on exertion (Acute) Trapezius muscle strain (Acute) Tendonitis of left rotator cuff (Acute) Trigger thumb, left thumb (Acute) Lesion of bone of lower leg (Acute) Suprapatellar bursitis of left knee (Acute) Trigger finger, right ring finger (Acute) S/P total hip arthroplasty (Acute) Elevated cholesterol (Acute) HTN (hypertension) (Acute) Past Medical History Medical History Muscle spasm Hx of thoracic outlet syndrome GERD (gastroesophageal reflux disease) History of dysphagia History of shingles Back pain Arthritis Fibromyalgia Anxiety Depression Head ache Hx of bronchiolitis Elevated cholesterol HTN (hypertension) Family History Family History Mother No problems noted. Father No problems noted. Family history of problems with anesthesia: No Surgical History Surgical History Hx of hand surgery Hx of arthroscopy of right knee History of total right knee replacement (TKR) H/O excision of ganglion cyst Hx of tonsillectomy Hx of spinal fusion History of right hip hemiarthroplasty History of surgery on right wrist Hx of colonoscopy (~12/10/19) History of Problems with Anesthesia: No Social History Social History Housing: House Are you a primary child care team lead to a significant other at home: No Do you presently have visiting nurse or other home services: No Alcohol intake: current Alcohol intake frequency: a few times a month Alcohol type: wine Patient Tobacco Use Status: Former Tobacco user Tobacco use type: Cigarette e-Cigarette/Vaping Use: Former Use Second Hand Smoke Exposure: No Advance Directives on File: No FDLMP: n/a service: No Current occupational status: retired Cognitive needs: No Hearing needs: No Vision needs: Yes (rx glasses) Meds Allergies Allergy/AdvReac Type Severity Reaction Status Date / Time No Known Allergies Allergy Mild NONE Verified 07/17/24 13:43 Home Medications ?Medication ?Instructions ?Recorded ?Confirmed ?Last Taken ?Type cholecalciferol (vitamin D3) 25 25 mcg PO DAILY 12/05/19 07/28/24 07/28/24 History mcg (1,000 unit) tablet (Vitamin D3) magnesium 200 mg tablet 200 mg PO DAILY 08/29/23 07/28/24 07/28/24 History clonazepam 1 mg tablet 1 mg PO DAILY 03/20/24 07/28/24 07/28/24 History diltiazem HCl 120 mg 120 mg PO DAILY 03/20/24 07/28/24 07/28/24 History capsule,extended release 24 hr paroxetine HCl 20 mg tablet 20 mg PO DAILY 03/20/24 07/28/24 07/28/24 History Exam Height,Weight and Vital Signs: Height 5 ft 5 in Weight 92.079 kg Assessment and Plan Assessment Anesthesia Assessment: Chart Reviewed Final Anesthetic Review Family History of Problems with Anesthesia: No History of Problems with Anesthesia: No Documented by User: Filomena Barker MD 07/28/24 07:16 [facility] Past Medical History Medical History Muscle spasm Hx of thoracic outlet syndrome GERD (gastroesophageal reflux disease) History of dysphagia History of shingles Back pain Arthritis Fibromyalgia Anxiety Depression Head ache Hx of bronchiolitis Elevated cholesterol HTN (hypertension) Family History Family History Mother No problems noted. Father No problems noted. Surgical History Surgical History Hx of hand surgery Hx of arthroscopy of right knee History of total right knee replacement (TKR) H/O excision of ganglion cyst Hx of tonsillectomy Hx of spinal fusion History of right hip hemiarthroplasty History of surgery on right wrist Hx of colonoscopy (~12/10/19) Social History Social History Housing: House Are you a primary child care team lead to a significant other at home: No Do you presently have visiting nurse or other home services: No Alcohol intake: current Alcohol intake frequency: a few times a month Alcohol type: wine Patient Tobacco Use Status: Former Tobacco user Tobacco use type: Cigarette e-Cigarette/Vaping Use: Former Use Second Hand Smoke Exposure: No Advance Directives on File: No FDLMP: n/a service: No Current occupational status: retired Cognitive needs: No Hearing needs: No Vision needs: Yes (rx glasses) Meds Allergies Allergy/AdvReac Type Severity Reaction Status Date / Time No Known Allergies Allergy Mild NONE Verified 07/17/24 13:43 Home Medications ?Medication ?Instructions ?Recorded ?Confirmed ?Last Taken ?Type cholecalciferol (vitamin D3) 25 25 mcg PO DAILY 12/05/19 07/28/24 07/28/24 History mcg (1,000 unit) tablet (Vitamin D3) magnesium 200 mg tablet 200 mg PO DAILY 08/29/23 07/28/24 07/28/24 History clonazepam 1 mg tablet 1 mg PO DAILY 03/20/24 07/28/24 07/28/24 History diltiazem HCl 120 mg 120 mg PO DAILY 03/20/24 07/28/24 07/28/24 History capsule,extended release 24 hr paroxetine HCl 20 mg tablet 20 mg PO DAILY 03/20/24 07/28/24 07/28/24 History Exam Airway Mallampati Class: II TM Dist: >3cm Neck ROM: Full Heart: rrr Lungs: course b/l Assessment and Plan Assessment Anesthesia Assessment: Anesthesia Plan Discussed Final Anesthetic Review NPO: Yes ASA Class: III Final Preanesthetic Review: No Changes in Pt Med Stat, Meds/Allgs Chart Reviewed and Consent Obtained/Reviewed Patient Risk: Low Procedure Risk: Low Anesthetic Plan Anesthetic Plan: MAC: Disposition: Standard PACU
[2024-07-28 07:13] VITALS: BP 103/60; PULSE 70; RESP 16; TEMP 36.8; O2SAT 97
[2024-07-28] MEDS: Tetracaine HCl/PF 0.5% Oph Sol 4 ML DROPS 1 DROP EYE-LEFT (07:19)
[2024-07-28] MEDS: Lactated Ringers 500 ML 50 ML IV (07:24)
[2024-07-28] MEDS: Cyclopentolate 1 % Ophth Sol 2 ML DRPBTL 1 DROP EYE-LEFT ×3 (07:25→07:33)
[2024-07-28] MEDS: Tropicamide 1 % Ophth Sol 3 ML BTL 1 DROP EYE-LEFT ×3 (07:26→07:33)
[2024-07-28] MEDS: Ketorolac Tromethamine 0.5% Op 5 ML DROPS 1 DROP EYE-LEFT ×3 (07:27→07:33)
[2024-07-28] MEDS: Phenylephrine HCL 2.5% Oph SoL 2 ML BOTTLE 1 DROP EYE-LEFT ×3 (07:28→07:34)
--- NOTE | 2024-07-28 08:19 | MHC.SHP ---
Pre-Procedural Eval Section A - 24 Hr Update-Section A only Date of Service: 07/28/24 The patient is an INPATIENT: No Changes since office visit: No Cold of Flu in the past 2 weeks, No New Medical Problems, No Changes in Medication and No Patient answered all questions The patient has been examined within 24 hours of the surgical procedure. The History & Physical has been completed within 30 days and I have reviewed it.: Yes Section B - Complete if H&P > 30 days Chief Complaint: Age-related nuclear cataract, left eye Allergies: Allergies Allergy/AdvReac Type Severity Reaction Status Date / Time No Known Allergies Allergy Mild NONE Verified 07/17/24 13:43 Plan Diagnosis/Plan: Unchanged I have reviewed the history and physical and performed a pertinent physical examination on my patient. No changes have occurred unless specified. Time Spent With Patient Time: Total time managing care of this patient today ____ minutes.
--- NOTE | 2024-07-28 08:19 | HO.PNOPHT ---
Ophthalmology Procedure Procedure Date of Service: 07/28/24 Ophthalmology Viscoelastic: Healon Duet Dual Pack Pro Ophthalmology Lenses: IOL Acrysof MP - MA60AC (22) Procedure Notes: PREOPERATIVE DIAGNOSIS: Decreased visual acuity left eye secondary to cataract POSTOPERATIVE DIAGNOSIS: Same PROCEDURE: Left cataract extraction with intraocular lens insertion SURGEON: Osmar Diaz M.D. ANESTHESIA: Topical/MAC ESTIMATED BLOOD LOSS: None COMPLICATIONS: None After obtaining informed consent, the patient was brought to the operation room suite and placed in the supine position. After adequate sedation per anesthesia, topical drops of Tetracaine were given to the left eye. The eye was then prepped and draped in the usual sterile fashion. The operating room microscope was then positioned over the operative eye and a lid speculum placed. A paracentesis was created. Viscoelastic was then instilled into the anterior chamber. A three plane incision was then created temporally, utilizing a 2.85 mm keratome. Capsulotomy forceps were then utilized to create a circular tear capsulotomy. Hydrodissection and hydrodelineation were carried out until adequate mobilization of the nucleus occurred. Phacoemulsification was then utilized to remove the dense central nucleus followed by removal of the cortical material utilizing the automated aspiration irrigation unit. Viscoat elastic was instilled into the posterior capsular bag followed by placement of a posterior chamber intraocular lens without difficulty. The residual Viscoat elastic was then removed utilizing the automated IA machine. The wound was check and found to be watertight. The patient tolerated the procedure well and the lid speculum was removed. Intracameral injection of Vigamox 0.1 mL followed by a subtenon injection of Kenalog-40 0.2 mL were administered. The patient will be seen in the a.m.
[2024-07-28 08:44] VITALS: BP 114/76; PULSE 66; RESP 16; TEMP 36.4; O2SAT 98
== END 2024-07-28 08:47 | disposition home or self-care (01) ==
PROVIDERS: PCP Internal Medicine; Visit Provider Ophthalmology
PROC: (CPT 66985; principal; 2024-07-28 08:30)
DX: H25.12 Age-related nuclear cataract, left eye (principal); H52.4 Presbyopia; H40.013 Open angle with borderline findings, low risk, bilateral; H35.033 Hypertensive retinopathy, bilateral; H18.413 Arcus senilis, bilateral; I10 Essential (primary) hypertension; E78.00 Pure hypercholesterolemia, unspecified; M79.7 Fibromyalgia; Z79.82 Long term (current) use of aspirin; Z79.899 Other long term (current) drug therapy; Z87.891 Personal history of nicotine dependence
CPT/HCPCS: 66984; J2250; J3301; V2630

== ENCOUNTER 2024-08-11 06:25 | Day surgery (SDC) | payer MEDICARE, SELFPAY ==
[2024-07-22 08:18] VITALS: BMI 33.8
--- NOTE | 2024-08-07 14:37 | HO.ANESPROP2 ---
Documented by User: Columba Person NP 08/07/24 14:38 HPI - Anesthesia Eval Consult details Narrative: 68yo F for Right Cataract Extraction IOL Insertion Left eye 07/28/24: [facility] 1 PMFSH Active Problems Active Problems: All Active Problems Preop cardiovascular exam (Acute) Plantar fasciitis of right foot (Acute) Chest pain (Acute) Abnormal echocardiogram (Acute) Short of breath on exertion (Acute) Trapezius muscle strain (Acute) Tendonitis of left rotator cuff (Acute) Trigger thumb, left thumb (Acute) Lesion of bone of lower leg (Acute) Suprapatellar bursitis of left knee (Acute) Trigger finger, right ring finger (Acute) S/P total hip arthroplasty (Acute) Elevated cholesterol (Acute) HTN (hypertension) (Acute) Past Medical History Medical History Muscle spasm Hx of thoracic outlet syndrome GERD (gastroesophageal reflux disease) History of dysphagia History of shingles Back pain Arthritis Fibromyalgia Anxiety Depression Head ache Hx of bronchiolitis Elevated cholesterol HTN (hypertension) Family History Family History Mother No problems noted. Father No problems noted. Family history of problems with anesthesia: No Surgical History Surgical History Hx of hand surgery Hx of arthroscopy of right knee History of total right knee replacement (TKR) H/O excision of ganglion cyst Hx of tonsillectomy Hx of spinal fusion History of right hip hemiarthroplasty History of surgery on right wrist Hx of colonoscopy (~12/10/19) History of Problems with Anesthesia: No Social History Social History Housing: House Are you a primary healthcare technician to a significant other at home: No Do you presently have visiting nurse or other home services: No Alcohol intake: current Alcohol intake frequency: a few times a month Alcohol type: wine Patient Tobacco Use Status: Former Tobacco user Tobacco use type: Cigarette e-Cigarette/Vaping Use: Former Use Second Hand Smoke Exposure: No Advance Directives on File: No FDLMP: n/a service: No Current occupational status: retired Cognitive needs: No Hearing needs: No Vision needs: Yes (rx glasses) Meds Allergies Allergy/AdvReac Type Severity Reaction Status Date / Time No Known Allergies Allergy Mild NONE Verified 08/11/24 06:53 Home Medications ?Medication ?Instructions ?Recorded ?Confirmed ?Last Taken ?Type cholecalciferol (vitamin D3) 25 25 mcg PO DAILY 12/05/19 08/11/24 08/11/24 History mcg (1,000 unit) tablet (Vitamin D3) magnesium 200 mg tablet 200 mg PO DAILY 08/29/23 08/11/24 07/28/24 History clonazepam 1 mg tablet 1 mg PO DAILY 03/20/24 07/28/24 08/11/24 History diltiazem HCl 120 mg 120 mg PO DAILY 03/20/24 07/28/24 08/11/24 History capsule,extended release 24 hr paroxetine HCl 20 mg tablet 20 mg PO DAILY 03/20/24 07/28/24 08/11/24 History Exam Height,Weight and Vital Signs: Height 5 ft 5 in Weight 92.079 kg Assessment and Plan Assessment Anesthesia Assessment: Chart Reviewed Final Anesthetic Review Family History of Problems with Anesthesia: No History of Problems with Anesthesia: No Documented by User: Berna Vasquez MD 08/11/24 07:36 PMFSH Past Medical History Medical History Muscle spasm Hx of thoracic outlet syndrome GERD (gastroesophageal reflux disease) History of dysphagia History of shingles Back pain Arthritis Fibromyalgia Anxiety Depression Head ache Hx of bronchiolitis Elevated cholesterol HTN (hypertension) Family History Family History Mother No problems noted. Father No problems noted. Surgical History Surgical History Hx of hand surgery Hx of arthroscopy of right knee History of total right knee replacement (TKR) H/O excision of ganglion cyst Hx of tonsillectomy Hx of spinal fusion History of right hip hemiarthroplasty History of surgery on right wrist Hx of colonoscopy (~12/10/19) Social History Social History Housing: House Are you a primary healthcare technician to a significant other at home: No Do you presently have visiting nurse or other home services: No Alcohol intake: current Alcohol intake frequency: a few times a month Alcohol type: wine Patient Tobacco Use Status: Former Tobacco user Tobacco use type: Cigarette e-Cigarette/Vaping Use: Former Use Second Hand Smoke Exposure: No Advance Directives on File: No FDLMP: n/a service: No Current occupational status: retired Cognitive needs: No Hearing needs: No Vision needs: Yes (rx glasses) Meds Allergies Allergy/AdvReac Type Severity Reaction Status Date / Time No Known Allergies Allergy Mild NONE Verified 08/11/24 06:53 Home Medications ?Medication ?Instructions ?Recorded ?Confirmed ?Last Taken ?Type cholecalciferol (vitamin D3) 25 25 mcg PO DAILY 12/05/19 08/11/24 08/11/24 History mcg (1,000 unit) tablet (Vitamin D3) magnesium 200 mg tablet 200 mg PO DAILY 08/29/23 08/11/24 07/28/24 History clonazepam 1 mg tablet 1 mg PO DAILY 03/20/24 07/28/24 08/11/24 History diltiazem HCl 120 mg 120 mg PO DAILY 03/20/24 07/28/24 08/11/24 History capsule,extended release 24 hr paroxetine HCl 20 mg tablet 20 mg PO DAILY 03/20/24 07/28/24 08/11/24 History Exam Airway Mallampati Class: II TM Dist: >3cm Neck ROM: Limited Heart: rrr Lungs: cta Assessment and Plan Assessment Anesthesia Assessment: Anesthesia Plan Discussed Final Anesthetic Review NPO: Yes ASA Class: II Final Preanesthetic Review: No Changes in Pt Med Stat, Meds/Allgs Chart Reviewed, Consent Obtained/Reviewed and Anes Risks/Benef Reviewed Patient Risk: Intermediate Procedure Risk: Low Anesthetic Plan Anesthetic Plan: MAC: Disposition: Standard PACU
[2024-08-11] MEDS: Lactated Ringers 500 ML 50 ML IV (06:40)
[2024-08-11] MEDS: Tetracaine HCl/PF 0.5% Oph Sol 4 ML DROPS 1 DROP EYE-RIGHT (06:40)
[2024-08-11] MEDS: Cyclopentolate 1 % Ophth Sol 2 ML DRPBTL 1 DROP EYE-RIGHT ×3 (06:41→06:50)
[2024-08-11] MEDS: Tropicamide 1 % Ophth Sol 3 ML BTL 1 DROP EYE-RIGHT ×3 (06:41→06:50)
[2024-08-11] MEDS: Ketorolac Tromethamine 0.5% Op 5 ML DROPS 1 DROP EYE-RIGHT ×3 (06:41→06:50)
[2024-08-11] MEDS: Phenylephrine HCL 2.5% Oph SoL 2 ML BOTTLE 1 DROP EYE-RIGHT ×3 (06:41→06:50)
[2024-08-11 06:51] VITALS: BMI 33.6
[2024-08-11 06:52] VITALS: BP 126/73; PULSE 72; RESP 18; TEMP 36.6; O2SAT 96
--- NOTE | 2024-08-11 07:09 | MHC.SHP ---
Pre-Procedural Eval Section A - 24 Hr Update-Section A only Date of Service: 08/11/24 The patient is an INPATIENT: No Changes since office visit: No Cold of Flu in the past 2 weeks, No New Medical Problems, No Changes in Medication and No Patient answered all questions The patient has been examined within 24 hours of the surgical procedure. The History & Physical has been completed within 30 days and I have reviewed it.: Yes Section B - Complete if H&P > 30 days Chief Complaint: Age-related nuclear cataract, right eye Allergies: Allergies Allergy/AdvReac Type Severity Reaction Status Date / Time No Known Allergies Allergy Mild NONE Verified 08/11/24 06:53 Plan Diagnosis/Plan: Unchanged I have reviewed the history and physical and performed a pertinent physical examination on my patient. No changes have occurred unless specified. Time Spent With Patient Time: Total time managing care of this patient today ____ minutes.
--- NOTE | 2024-08-11 07:50 | P.PCNO_ITS ---
Ophthalmology Procedure Procedure Date of Service: 08/11/24 Ophthalmology Viscoelastic: Healon Duet Dual Pack Pro Ophthalmology Lenses: IOL Acrysof MP - MA60AC (22) Procedure Notes: PREOPERATIVE DIAGNOSIS: Decreased visual acuity right eye secondary to cataract POSTOPERATIVE DIAGNOSIS: Same PROCEDURE: Right cataract extraction with intraocular lens insertion SURGEON: Osmar Diaz M.D. ANESTHESIA: Topical/MAC ESTIMATED BLOOD LOSS: None COMPLICATIONS: None After obtaining informed consent, the patient was brought to the operating room suite and placed in the supine position. After adequate sedation per anesthesia, topical drops of Tetracaine were given to the right eye. The eye was then prepped and draped in the usual sterile fashion. The operating room microscope was then positioned over the operative eye and a lid speculum placed. A paracentesis was created. Viscoelastic was then instilled into the anterior chamber. A three plane incision was then created temporally, utilizing a 2.85 mm keratome. Capsulotomy forceps were then utilized to create a circular tear capsulotomy. Hydrodissection and hydrodelineation were carried out until adequate mobilization of the nucleus occurred. Phacoemulsification was then utilized to remove the dense central nucl eus followed by removal of the cortical material utilizing the automated aspiration irrigation unit. Viscoelastic was instilled into the posterior capsular bag followed by placement of a posterior chamber intraocular lens without difficulty. The residual Viscoelastic was then removed utilizing the automated IA machine. The wound was checked and found to be watertight. The patient tolerated the procedure well and the lid speculum was removed. Intracameral injection of Vigamox 0.1 mL followed by a subtenon injection of Kenalog-40 0.2 mL were administered. The patient will be seen in the a.m.
[2024-08-11 08:19] VITALS: BP 109/61; PULSE 53; RESP 16; TEMP 36.3; O2SAT 97
[2024-08-11 08:34] VITALS: BP 107/66; PULSE 69; RESP 18; TEMP 36.2; O2SAT 96
== END 2024-08-11 08:37 | disposition home or self-care (01) ==
PROVIDERS: PCP Internal Medicine; Visit Provider Ophthalmology
PROC: (CPT 66985; principal; 2024-08-11 08:00)
DX: H25.11 Age-related nuclear cataract, right eye (principal); H52.4 Presbyopia; H40.013 Open angle with borderline findings, low risk, bilateral; H35.033 Hypertensive retinopathy, bilateral; H18.413 Arcus senilis, bilateral; I10 Essential (primary) hypertension; E78.00 Pure hypercholesterolemia, unspecified; M79.7 Fibromyalgia; Z79.82 Long term (current) use of aspirin; Z79.899 Other long term (current) drug therapy; Z87.891 Personal history of nicotine dependence
CPT/HCPCS: 66984; J2250; J3301; V2630

== ENCOUNTER 2024-12-21 17:20 | Emergency (ER) | payer MEDICARE, SELFPAY ==
--- NOTE | ~2024-12-21 | XR_ITS ---
CLINICAL HISTORY: SOB 1 view chest x-ray. Comparison: None Findings: No consolidation or effusion. Cardiac and mediastinal contours appear unremarkable. Bones unremarkable. Impression: 1. No acute pulmonary disease. This document has been electronically signed by: Omar Taveras MD on 12/21/2024 18:29:08
[2024-12-21 17:24] VITALS: BP 114/54; BP 137/83; PULSE 74; PULSE 75; RESP 20; O2SAT 100; O2SAT 99; BMI 32.6
--- NOTE | 2024-12-21 17:35 | ECG_ITS ---
Test Reason : WEAKNESS Blood Pressure : */* mmHG Vent. Rate : 70 BPM Atrial Rate : 70 BPM P-R Int : 148 ms QRS Dur : 90 ms QT Int : 404 ms P-R-T Axes : 10 -39 11 degrees QTcB Int : 436 ms Normal sinus rhythm Left axis deviation Abnormal ECG When compared with ECG of 19-May-2020 09:43, No significant change was found Referred By: Puma Worthy Electronically Signed By: WENCESLAO SOLIS MD
--- NOTE | 2024-12-21 17:35 | ED.ABDPAIN ---
HPI - Abdominal Pain General Chief Complaint: Dyspnea Stated Complaint: partial airway obstruction caused by pretzel Time Seen by Provider: 12/21/24 17:34 Source: patient and EMS Mode of arrival: EMS Limitations: no limitations History of Present Illness ED Provider: HPI narrative: 69-year-old woman presented via EMS with the reports of food bolus impaction, patient presented in stable condition, no respiratory distress, endorsing significant anxiety tingling in her feet and arms and perioral numbness, states takes Paxil and clonazepam for anxiety has not required it today, she was eating a pretzel bit a piece and felt like it got stuck in her throat, called EMS. Denies prior history of obstruction, esophageal cancer, nonsmoker reports history of acid reflux and endorsing epigastric discomfort. No chest pain no fevers or chills, prior to coming to the ER she was doing well. Related Data Home Medications ?Medication ?Instructions ?Recorded ?Confirmed cholecalciferol (vitamin D3) 25 25 mcg PO DAILY 12/05/19 08/11/24 mcg (1,000 unit) tablet (Vitamin D3) magnesium 200 mg tablet 200 mg PO DAILY 08/29/23 08/11/24 clonazepam 1 mg tablet 1 mg PO DAILY 03/20/24 07/28/24 Previous Rx's ?Medication ?Instructions ?Recorded acetaminophen 325 mg tablet 650 mg (2 x 325 mg) PO Q6H PRN 06/16/20 Pain, Mild (Pain Scale 1-3) 30 days #240 tabs atorvastatin 40 mg tablet 40 mg PO DAILY #90 tabs 05/16/24 paroxetine HCl 20 mg tablet 20 mg PO DAILY #90 tabs 10/06/24 diltiazem HCl 120 mg 120 mg PO DAILY 90 days #90 caps 12/18/24 capsule,extended release 24 hr Allergies Allergy/AdvReac Type Severity Reaction Status Date / Time No Known Allergies Allergy Mild NONE Verified 12/21/24 17:34 Review of Systems Constitutional: Reports as per [facility] Past Medical History Medical History Muscle spasm Hx of thoracic outlet syndrome GERD (gastroesophageal reflux disease) History of dysphagia History of shingles Back pain Arthritis Fibromyalgia Anxiety Depression Head ache Hx of bronchiolitis Elevated cholesterol HTN (hypertension) Surgical History Hx of hand surgery Hx of arthroscopy of right knee History of total right knee replacement (TKR) H/O excision of ganglion cyst Hx of tonsillectomy Hx of spinal fusion History of right hip hemiarthroplasty History of surgery on right wrist Hx of colonoscopy (~12/10/19) Family History Family History Mother No problems noted. Father No problems noted. Social History Social History Housing: House Are you a primary live in caregiver to a significant other at home: No Do you presently have visiting nurse or other home services: No Alcohol intake: current Alcohol intake frequency: a few times a month Alcohol type: wine Patient Tobacco Use Status: Former Tobacco user Tobacco use type: Cigarette e-Cigarette/Vaping Use: Former Use Second Hand Smoke Exposure: No Do you have a plan to hurt others: No Plan service: No Current occupational status: retired Cognitive needs: No Hearing needs: No Vision needs: Yes (rx glasses) Physical Exam ED Exam Exam: General: ?Appears of stated age ? ?patient has [place] teeth, no foreign body in the upper airway Supple neck ? ?CV: RRR, no obvious murmurs appreciated ? ?Resp: ?No wheezing rales rhonchi no stridor moving air well ? Abd: ?Bowel sounds are present, no tenderness no rebound no rigidity ? ?MSK: FROM, strength 5/5 all extremities ? Skin: Warm, dry, intact, ? ?Neuro: ?Alert and oriented x3, moving upper and lower extremities symmetrically, no obvious facial asymmetry noted, cranial nerves 2-12 intact Anxious, pleasant, answers all questions, soft-spoken Vital Signs: Vital Signs - 24 hr 12/21/24 17:24 Pulse Rate 75 Respiratory Rate 20 Blood Pressure 114/54 L Pulse Oximetry 99 Oxygen Delivery Method Room Air BMI result Body Mass Index 32.6 Medical Decision Making Medical Decision Making MDM Narrative: 5:39 PM 12/21/2024 (Dr. uPma Worthy): Patient was met with a full team to make sure that there was no airway compromise, patient was able to speak softly but phonation was well, she is not in respiratory distress, she is endorsing significant anxiety, which is understandable and this situation, I did provide Versed for anxiety, and I also gave patient ronit carbajal to sip and she has been sipping with my observation without vomiting and she has been able to control her secretions. We will continue to monitor her, we will check basic lab work, ECG unlikely this is ACS however, chest x-ray for any pneumothorax or obvious radiopaque foreign bodies which is unlikely as well, disposition to be determined 6:51 PM 12/21/2024 (Dr. Puma Worthy): Patient re-evaluated, she feels much better, tolerated liquids without any issues, has not been gagging, controlling her secretions, breathing well, anxiety is under control her is here to pick her up Differential Diagnosis Differential Diagnoses: The differential diagnosis associated with the presentation includes (Food bolus impaction, aspiration, pneumonia, aspiration pneumonia, SBO, volvulus) Admission/Observation Consideration of admission/observation: Escalation of care including admission/observation considered Lab Data MDM Lab Attestation statement: I reviewed the patient's lab results. 12/21/24 18:11 12/21/24 18:00 Labs: Lab Results 12/21/24 12/21/24 12/21/24 Range/Units 17:59 18:00 18:11 WBC 5.5 (4.8-10.8) X10*3/uL RBC 4.43 (4.20-5.50) X10*6/uL Hgb 13.7 (12.0-16.0) g/dl Hct 41.1 (37.0-47.0) % MCV 92.8 (80.0-98.0) fL MCH 30.9 (27.0-33.0) pg MCHC 33.3 (31.0-35.0) g/dl RDW 12.8 (11.0-16.0) % Plt Count 242 (160-400) X10*3/uL MPV 11.2 (9.4-12.3) fL Immature Gran % (Auto) 0.4 (0.0-0.4) % Neut % (Auto) 60.2 (45-73) % Lymph % (Auto) 27.4 (20-40) % Hand % (Auto) 9.3 (2-11) % Eos % (Auto) 2.0 (0-4) % Baso % (Auto) 0.7 (0-2) % Lymph # (Auto) 1.5 (1.2-4.9) X10*3/uL Hand # (Auto) 0.5 (0.1-1.2) X10*3/uL Eos # (Auto) 0.1 (0.0-0.4) X10*3/uL Baso # (Auto) 0.0 (0.0-0.2) X10*3/uL Abs Immat Gran (auto) 0.02 (0.00-0.03) X10*3/uL Absolute Neuts (auto) 3.3 (2.0-8.3) x10*3/uL Absolute Nucleated RBC 0.000 (0.0-0.012) X10*3/uL Nucleated RBC % (auto) 0.0 (0.0-0.2) /100WBC PT 11.7 (11.2-13.5) SEC INR 1.0 (0.9-1.1) Sodium 140 (135-145) mmol/L Potassium 3.3 D (3.3-5.1) mmol/L Chloride 109 H (96-108) mmol/L Carbon Dioxide 19 L (22-29) mmol/L Anion Gap 15 (12-20) BUN 12 (9-16) mg/dL Creatinine 0.68 (0.5-1.4) mg/dL Estim Creat Clear Calc 84.7 Estimated GFR > 60 Random Glucose 94 (60-115) mg/dL Calcium 8.9 (8.4-10.2) mg/dL Total Bilirubin 0.6 (0.0-1.0) mg/dL AST 27 (5-31) U/L ALT 24 (0-31) U/L Alkaline Phosphatase 72 (39-117) U/L Total Protein 7.1 (6.5-8.0) g/dL Albumin 4.2 (3.5-5.0) g/dL Independent Interpretation I performed an independent interpretation of an: EKG (70 beats per minute otherwise normal ECG without dysrhythmia, AV gwyn blocks or ST-T changes to suspect underlying ACS, my independent interpretation) and Plain X-Ray (My independent chest xray interpretation: Lungs: Lungs are clear bilaterally without evidence of focal consolidation, pleural effusion, or pneumothorax. Cardiac silhouette is unremarkable, no obvious mediastinal widening, no obvious bony abnormalities such as fractures. Impression: Normal chest X-r) Radiology Impression Discussion of test interpretation with radiology: I have reviewed the radiologist's reading. Radiologist Impression: Impression: 1. No acute pulmonary disease. Independent Historian Clinical information obtained from an independent historian. History obtained from or confirmed by: EMS Medications Administered Discontinued Medications Generic Name Dose Route Start Last Admin Trade Name Freq PRN Reason Stop Dose Admin Al Hydroxide/Mg Hydroxide 15 ml 12/21/24 17:35 12/21/24 17:41 Magnesium Hydrox/Alum Hydrox 30 Ml Oral.Susp PO 12/21/24 17:36 15 ml ONCE ONE Administration Famotidine 20 mg 12/21/24 17:35 12/21/24 17:41 Famotidine/Pf 20 Mg/2 Ml Vial IVPUSH 12/21/24 17:36 20 mg ONCE ONE Administration Lidocaine HCl 15 ml 12/21/24 17:35 12/21/24 17:40 Lidocaine Hcl Viscous 2 % 15 Ml Solution PO 12/21/24 17:36 15 ml ONCE ONE Administration Midazolam HCl 1 mg 12/21/24 17:35 12/21/24 17:37 Midazolam Hcl 2 Mg/2 Ml Vial IVPUSH 12/21/24 17:36 1 mg ONCE ONE Administration Ondansetron HCl 4 mg 12/21/24 17:35 12/21/24 17:41 Ondansetron Hcl 4 Mg/2 Ml Vial IVPUSH 12/21/24 17:36 4 mg ONCE ONE Administration Critical Care Time Critical Care Time Critical Care Time: Yes Total Critical Care Time: 35 Attestation: Time is exclusive of separately billable procedures. Time includes: direct patient care, patient reassessment, coordination of patient care, interpretation of data (laboratory data, pulse oximetry, arterial blood gases and chest xrays), review of patient's medical records, medical consultation and documentation of patient care. Procedures excluded from critical care time: central intravenous line placement and electrocardiography. Discharge Plan Discharge Clinical Impression: Food impaction of esophagus Patient Disposition: Home, Self-Care Additional Instructions: Evaluated with concern for food bolus impaction of the esophagus, you had blood work, EKG, chest x-ray all of which has been reassuring, you received medications for nausea vomiting, as well as medications for acid reflux, medications for anxiety but also this medication helps to relax your food pipe, you were able to tolerate oral liquids without any issues, he will be discharged from the ER to follow up with the PCP should you have any other issues concerns do not hesitate to come back to the ER for re-evaluation Prescriptions: No Action paroxetine HCl 20 mg tablet 20 mg PO DAILY Qty: 90 1RF diltiazem HCl 120 mg capsule,extended release 24hr 120 mg PO DAILY 90 Days Qty: 90 3RF cholecalciferol (vitamin D3) [Vitamin D3] 25 mcg (1,000 unit) Tablet 25 mcg PO DAILY acetaminophen 325 mg Tablet 650 mg PO Q6H PRN (Reason: Pain, Mild (Pain Scale 1-3)) 30 Days Qty: 240 0RF magnesium 200 mg tablet 200 mg PO DAILY atorvastatin 40 mg tablet 40 mg PO DAILY Qty: 90 3RF clonazepam 1 mg tablet 1 mg PO DAILY Print Language: Sami
[2024-12-21] MEDS: Lidocaine HCl Viscous 2 % 15 ML SOLUTION PO (17:40)
[2024-12-21] MEDS: Magnesium Hydrox/Alum Hydrox 30 ML ORAL.SUSP 15 ML PO (17:41)
[2024-12-21 18:13] LABS: INTERNATIONAL NORM RATIO 1.0 (0.9-1.1); Prothrombin Time 11.7 SEC (11.2-13.5)
[2024-12-21 18:17] LABS: MANUAL DIFF FLAG NO
[2024-12-21 18:20] LABS: Hematocrit 41.1 % (37.0-47.0); Hemoglobin 13.7 g/dl (12.0-16.0); Imm Gran Abs Auto 0.02 X10*3/uL (0.00-0.03); Imm Gran Pct Auto 0.4 % (0.0-0.4); Lymphocytes Absolute Auto 1.5 X10*3/uL (1.2-4.9); Mean Corpuscular HGB Conc 33.3 g/dl (31.0-35.0); Mean Corpuscular Hemoglobin 30.9 pg (27.0-33.0); Mean Corpuscular Volume 92.8 fL (80.0-98.0); NRBC Abs Auto 0.000 X10*3/uL (0.0-0.012); NRBC Pct Auto 0.0 /100WBC (0.0-0.2); Platelet Count 242 X10*3/uL (160-400); Red Blood Count 4.43 X10*6/uL (4.20-5.50); White Blood Count 5.5 X10*3/uL (4.8-10.8)
[2024-12-21 18:33] LABS: Alanine Aminotransferase 24 U/L (0-31); Albumin Level 4.2 g/dL (3.5-5.0); Alkaline Phosphatase 72 U/L (39-117); Anion Gap 15 (12-20); Aspartate Amino Transferase 27 U/L (5-31); Blood Urea Nitrogen 12 mg/dL (9-16); Calcium 8.9 mg/dL (8.4-10.2); Carbon Dioxide 19 mmol/L (22-29); Chloride 109 mmol/L (96-108); Creatinine Clr Calc Pharmacy 84.7; Estimated Glomerular Filt Rate > 60; Potassium 3.3 mmol/L (3.3-5.1); Sodium 140 mmol/L (135-145); Total Protein 7.1 g/dL (6.5-8.0)
[2024-12-21 18:52] VITALS: BP 115/70; PULSE 64; RESP 13; O2SAT 95
--- OUTSIDE RECORDS SUMMARY | 2024-12-21 19:04 | XMS_ITS | Clinical Summary ---
Author Organization [address] [address] Phone Care Team Providers Care Industrial Cafeteria Manager Name Role Phone Oscar Ma MD Primary Care Provider Social History Tobacco Use Types Packs/Day Years Used Date Smoking Tobacco: Never Assessed Comments Unknown Sex and Gender Information Value Date Recorded Sex Assigned at Not on file Legal Sex Female 9:20 AM EDT Gender Identity Not on file Sexual Orientation Not on file Plan of Treatment Not on file Medical Devices Not on file Insurance [facility] EPO [employer] [address] PPO EPO [place] EPO [facility] P[facility] EPO [facility] [facility] PPO EPO [employer] P[place] EPO [employer] [place] [place] PPO EPO Care Teams Industrial Cafeteria Manager Relationship Specialty Start Date End Date Oscar Ma MD [address] [place] [address] [place] [id number] PCP - General Internal Medicine 05/01/17 Additional Source Comments The information contained in this document represents components of the legal health record. It is not the complete legal health record.[facility]
--- OUTSIDE RECORDS SUMMARY | 2024-12-21 19:04 | XMS_ITS | Patient Health Record ---
Author Organization [facility] Address [address] [place] [address] Care Team Providers Care Compliance Consultant Name Role Phone Mei Drake Primary Care Provider Elvia Delgadillo Unavailable [phone] Allergies No Known Allergies Reason For Referral No Information Medications Medication SIG (Take, Route, Frequency, Duration) Notes Start Date End Date Status Simvastatin 40 MG Orally No t-Taking PARoxetine HCl 20 MG Orally Active dilTIAZem HCl 120 MG Orally Active Tums Active Bactrim Not-Taking Magnesium Active Vitamin D3 Active Atorvastatin Calcium 40 MG 1 tablet Oral ly Once a day Active LORazepam 0.5 MG Orally Not -Taking Omeprazole 20 MG Orally twice a day Not-Taking Ibuprofen 600 mg Not -Taking clonazePAM 1 MG 1 tablet Orally Once a day Active Sulfacetamide Sodium Not-Taking Immunizations Vaccine Route Administration Date Status Comme nts Influenza Unknown 10/14/2023 Administered Social History Tobacco Use: Social History Observation Description Date Details (start date - stop date) Never Smoker NA - NA Tobacco use other than smoking: Question Answer Notes Are you an other tobacco user? No Tobacco Control (Standard) Question Answer Notes Tobacco use: Nonsmoker Additional Findings: Tobacco non-user Current no nsmoker AUDIT-C (Standard) Question Answer Notes Did you have a drink contain ing alcohol in the past year? Yes How often did you have a dri nk containing alcohol in the past year? 2 to 4 times a month (2 points) How many drinks did you have on a typical day when you were drinking in the past year? 1 or 2 drinks (0 point) How often did you have six o r more drinks on one occasion in the past year? Never (0 point) Points 2 Interpretation Negative Problems Problem Type SNOMED Code ICD Code Onset Dates Problem Status W/U Status Risk Notes Problem Plantar fasciitis of right foot (282974517862108 01) Plantar fasciitis of right foot (M72.2) Active confirmed Problem Interstitial myositis (31421691) Interstitial myositis of right foot (M60.171) Active confirmed Vital Signs Blood pressure diastolic 76 mm Hg 11/26/2024 Height 5ft 6in in 11/26/2024 Blood pressure systolic 118 mm Hg 11/26/2024 Weight 196 lbs 11/26/2024 BMI 31.63 kg/m2 11/26/2024 Encounters Encounter Location Date Provider Diagnosis [address] [address] 09/09/2024 Elvia Keane Pain in right foot M79.671 ; Calcaneal spur, right foot M77.31 ; Plantar fasciitis of right foot M72.2 ; Interstitial myositis of right foot M60.171 and Bursitis of right foot M77.[address] [address] 11/26/2024 Elvia Keane Calcaneal spur, righ t foot M77.31 ; Plantar fasciitis of right foot M72.2 ; Pain in right foot M79.671 ; Interstitial myositis of right foot M60.171 and Bursitis of right foot M77.[address] [address] 07/21/2024 Elvia Keane [address] [address] 09/03/2024 Elvia Keane [address] [address] 11/26/2024 Elvia Keane Assessments Encounter Date Diagnosis (ICD Code) Assessment Notes Treatment Notes Treatment Clinical Notes Section Notes 09/09/2024 Pain in right foot (ICD-10 - M79.671) 09/09/2024 Calcaneal spur, right foot (ICD-10 - M77.31) 11/26/2024 Calcaneal spur, right foot (ICD-10 - M77.31) 11/26/2024 Plantar fasciitis of right foot (ICD-10 - M72.2) 11/26/2024 Pain in right foot (ICD-10 - M79.671) 09/09/2024 Plantar fasciitis of right foot (ICD-10 - M72.2) Patient Educated with: HEEL CORD STRETCHES.pdf (HEEL CORD STRETCHES.pdf) Patient Educated with: RICE THERAPY.pdf (RICE THERAPY.pdf) 09/09/2024 Interstitial myositis of right foot (ICD-10 - M60.171) 11/26/2024 Interstitial myositis of right foot (ICD-10 - M60.171) 11/26/2024 Bursitis of right foot (ICD-10 - M77.51) 09/09/2024 Bursitis of right foot (ICD-10 - M77.51) 09/09/2024 Other Patient Educated with: RICE THERAPY.pdf (RICE THERAPY.pdf) Patient Educated with: INJECTIONTHERA PY.pdf (INJECTIONTHER APY.pdf) 11/26/2024 Other Plan Of Treatment No Information Insurance Providers Payer Name Payer Address Payer Phone Subscriber Number Group Number Insured Name Patient Relationship to Insured Coverage Start Date Coverage End Date [employer] Medicare [id number] [address] [address] [place] [address] [id number] Mandeep Jerome Spouse - patient is the spouse of the insured Medical (General) History Medical History History ICD Code Arthritis Back pain Back,Hip,and Knee pain Cataracts Depression Diverticulosis Fibromyalgia Glaucoma Headaches Sciatica Raynauds syndrome Measles Mumps Chicken pox Joint implants/screws Transfusions Cholesterol Reflux Anxiety Broken bones High Blood Pressure Neuropathy raynauds disease Bone implants/screws costroconditis Surgical History Surgery Date(Month/Year) right knee replacement [phone] 3/20 09 triple spinal fusion 03/1997 thorasic outlet 1985 femur 2019 low back surgery 1997 Rt Hand Surgery 2022 cataract surgery 08/06
--- OUTSIDE RECORDS SUMMARY | 2024-12-21 19:04 | XMS_ITS | Encounter Summary ---
Author Organization [facility] Address [address] [place] [phone] Phone Care Team Providers Care Application Development Director Name Role Phone Oscar Ma MD Primary Care Provider Encounter Details Date Type Department Care Team (Late st Contact Info) Description 05/01/2017 Ancillary Orders [facility] [address] Courtney Rg PA [address] [place] [phone] [email or web address] Lumbar stenosis with neurogenic claudication; Pseudarthrosis [...] decreases in flexion and increases in extension. Grossly stable minimal grade 1 L4-5 spondylolisthesis. POS [id number] Narrative 05/01/2017 10:04 AM EDT COMPARISON: None FINDINGS: Lateral views obtained in neutral, flexion, and extension positioning only were obtained. There is a very equivocal 2-3 mm anterolisthesis of the L4 in relation to L5 vertebral bodies which does not definitively change between flexion or extension. In the neutral position there is an approximate 5 mm retrolisthesis of the L1 in relation to L2 vertebral bodies which increases to 7 mm in extension and decreases to 3 mm in flexion. No other discrete spondylolisthesis or instability apparent. No vertebral body compression deformity. Procedure Note Marquise [...] POS [id number] Courtney HUTCHINS IMG XR SPINE Final Resul t documented in this encounter Visit Diagnoses Diagnosis Lumbar stenosis with neurogenic claudication Pseudarthrosis after fusion or arthrodesis Arthrodesis status Lumbar stenosis with neurogenic claudication Pseudarthrosis after fusion or arthrodesis Arthrodesis status documented in this encounter Care Teams Application Development Director Relationship Specialty Start Date End Date Oscar Ma MD [address] [place] [address] Dr Walsh, [place] [address] PCP - General Internal Medicine 05/01/17 documented as of this encounter Additional Source Comments The information contained in this document represents components of the legal health record. It is not the complete legal health record.[facility]
[2024-12-21 19:06] VITALS: BP 115/70; PULSE 64; RESP 13; TEMP 36.8; O2SAT 95
--- NOTE | 2024-12-21 19:06 | PC.NURSE ---
assumed care of pt, v/s WNL. Pt being d/c.
== END 2024-12-21 19:14 | disposition home or self-care (01) ==
LOC: HO.ED 19:01
PROVIDERS: Physician Assistant Medical; Emergency Provider Emergency Medicine; PCP Internal Medicine
DX: K22.2 Esophageal obstruction (principal); R94.31 Abnormal electrocardiogram [ECG] [EKG]; R10.13 Epigastric pain; Z51.81 Encounter for therapeutic drug level monitoring; Z79.899 Other long term (current) drug therapy; Z87.891 Personal history of nicotine dependence
CPT/HCPCS: 36415; 71045; 80053; 85025; 85610; 86850; 86900; 86901; 93005; 96374; 96375; 99284; J1308; J2250; J2405

== ENCOUNTER → 2024-12-21 17:34 | Outpatient (BNV) | payer MEDICARE, SELFPAY | PROVIDERS: Emergency Provider Emergency Medicine; PCP Internal Medicine; Visit Provider Radiology Diagnostic Radiology | DX: R06.02 Shortness of breath (principal) | CPT/HCPCS: 71045 ==

== ENCOUNTER → 2024-12-21 17:35 | Outpatient (BNV) | payer MEDICARE, SELFPAY | PROVIDERS: Emergency Provider Emergency Medicine; PCP Internal Medicine; Visit Provider Internal Medicine Cardiovascular Disease | DX: R94.31 Abnormal electrocardiogram [ECG] [EKG] (principal); R53.1 Weakness | CPT/HCPCS: 93010 ==

== ENCOUNTER 2025-01-15 14:31 | Outpatient (AMB) | payer MEDICARE, SELFPAY ==
--- NOTE | 2025-01-15 14:33 | MHC.PC.OV ---
Vital Signs 01/15/25 14:46 Height 5 ft 4.8 in Weight 200 lb BMI 33.5 BP 128/80 Blood Pressure Location Lt brachial Position Sitting Respiration 18 Pulse 72 Pulse Source Pulse Oximeter Temp 97.8 F Temp Source Temporal Artery Scan Pulse Oximetry (%) 97 Oxygen Delivery Method Room Air Intake Visit Reasons: Annual Palliative Nurse Required: No Accompanied by: Self / Same As Patient Allergies No Known Allergies Allergy (Mild, Verified 01/15/25 14:33) NONE Medication List - Last Reconciled 01/15/25 by Francisco Costello MD acetaminophen (Tylenol Extra Strength) 1,000 mg PO ONCE atorvastatin 40 mg PO DAILY cholecalciferol (vitamin D3) (Vitamin D3) 50 mcg PO DAILY clonazepam 1 mg PO DAILY PRN diltiazem HCl CD 120 mg PO DAILY 90 days magnesium 200 mg PO DAILY paroxetine HCl 20 mg PO DAILY Tobacco use date assessed: 07/17/24 Fall risk assessment: No Falls in past year Last assessed Fall Risk: 01/15/25 Dental Screening Dental Screen Date: 07/17/24 HPI HPI Comments History of Present Illness Details History of Present Illness The patient is a 69 year old female presenting for an annual physical examination. Her chronic conditions include hypertension, hypercholesterolemia, anxiety, osteoarthritis, and fibromyalgia. For these conditions, she takes diltiazem 120 mg for blood pressure, atorvastatin 40 mg for cholesterol, paroxetine 20 mg for anxiety, and acetaminophen 1000 mg as needed for pain related to fibromyalgia and osteoarthritis. For anxiety, she also uses clonazepam as needed, which is being discontinued due to concerns about its long-term effects, including increased risk of falls, dementia, and depression. The patient reports new onset of horrendous leg cramps, which previously occurred only at night but now happen during the day, including an episode while walking. The cramps are located in the hamstring area. She recently had an emergency department visit via ambulance after choking on a hard pretzel, which caused a partial airway obstruction. Regarding health maintenance, she is up-to-date with her colonoscopy and Pap smears, with the next Pap smear scheduled for April. Her next mammogram is scheduled for May. She has not had this year's flu or COVID-19 vaccine. The patient has a history of knee, hip, and back replacements. The hip replacement was secondary to a femur fracture sustained after a fall involving a hoverboard. She notes a history of 22 surgeries at this hospital. She denies a history of smoking, other than trying it in high school. Her physical activities include kayaking during the summer and regular Ting Chi. Medical History: - Essential Hypertension - Hypercholesterolemia - Anxiety - Osteoarthritis - Fibromyalgia - History of femur fracture secondary to a fall - History of choking leading to emergency services visit Surgical History: - Reports history of 22 surgeries. - Knee replacement - Hip replacement - Back replacement Medications: - Atorvastatin 40 mg for hypercholesterolemia - Acetaminophen 1000 mg as needed for pain from fibromyalgia and osteoarthritis - Diltiazem 120 mg for hypertension - Paroxetine 20 mg for anxiety - Clonazepam as needed for anxiety - Uoki-kvj-jjuzbmb sublingual tablets for leg cramps Diagnostic Results: - Vitals: Blood pressure 128/80 mmHg. Social History - Smoking History: The patient denies a history of habitual smoking. - Exercise: The patient is active, performing ting chi regularly and kayaking when weather permits. [facility] Medical History (Updated 01/15/25 @ 15:13 by Francisco Costello MD) Annual physical exam Leg cramps Mixed hyperlipidemia Muscle spasm Hx of thoracic outlet syndrome GERD (gastroesophageal reflux disease) History of dysphagia History of shingles Back pain Arthritis Fibromyalgia Anxiety Depression Head ache Hx of bronchiolitis Elevated cholesterol HTN (hypertension) Surgical History Hx of hand surgery Hx of arthroscopy of right knee History of total right knee replacement (TKR) H/O excision of ganglion cyst Hx of tonsillectomy Hx of spinal fusion History of right hip hemiarthroplasty History of surgery on right wrist Hx of colonoscopy (~12/10/19) Family History Mother No problems noted. Father No problems noted. Social History Housing: House Are you a primary career manager to a significant other at home: No Do you presently have visiting nurse or other home services: No Alcohol intake: current Alcohol intake frequency: a few times a month Alcohol type: wine Patient Tobacco Use Status: Former Tobacco user Tobacco use type: Cigarette e-Cigarette/Vaping Use: Former Use Second Hand Smoke Exposure: No service: No Current occupational status: retired Cognitive needs: No Hearing needs: No Vision needs: Yes (rx glasses) Questionnaire Thrive Questionnaire Date Thrive assessed: 07/17/24 AUDIT C Alcohol Use Questionnaire (AUDIT-C) 1. How often do you have a drink containing alcohol?: Monthly or less 2. How many drinks containing alcohol do you have on a typical day when you are drinking?: 1 or 2 3. How often do you have six or more drinks on one occasion?: Never Total Score: 1 JAZZMINE-7 AMB Questionnaire JAZZMINE-7 Date JAZZMINE - 7 assessed: 07/17/24 Source: Developed by Drs. Yan Hernandez, Gaye Romero, Francois Prince and colleagues, with an educational arleth from [employer]. Review of Systems Narrative Review of Systems - Musculoskeletal: Reports horrendous leg cramps in the hamstring area, which now occur during the day while walking. - Reports pain from fibromyalgia and osteoarthritis. - Psychiatric: Reports history of anxiety. - Respiratory: Reports a recent episode of partial airway obstruction after choking on a pretzel. All systems reviewed & are unremarkable except as reviewed in HPI and above Physical exam (Primary Care) Vital Signs: Last Vital Signs Temp 97.8 F 01/15/25 14:46 Pulse 72 01/15/25 14:46 Resp 18 01/15/25 14:46 BP 128/80 01/15/25 14:46 Pulse Ox 97 01/15/25 14:46 Oxygen Delivery Method Room Air 01/15/25 14:46 BMI result Body Mass Index 33.5 Tobacco/Smoking Status: Tobacco use Status Tobacco use date assessed 07/17/24 01/15/25 14:36 Patient Tobacco Use Status Former Tobacco user 01/15/25 14:36 Tobacco use type Cigarette 01/15/25 14:36 e-Cigarette/Vaping Use Former Use 01/15/25 14:36 Thrive Assessment: Date of Thrive Assessment Date Thrive assessed 07/17/24 01/15/25 14:36 Narrative Physical Exam General: +Alert and oriented, Well nourished, No acute distress. Eye: Pupils are equal, round and reactive to light, Intact accommodation, Extraocular movements are intact, Normal conjunctiva, Vision unchanged. HENT: Normocephalic, Atraumatic, Tympanic membranes are clear, Normal hearing, Oral mucosa is moist, No pharyngeal erythema, Ear canals patent. Respiratory: Lungs CTA bilaterally, No wheeze, Respirations are non-labored. Cardiovascular: Regular rate, Regular rhythm, S1 auscultated, S2 auscultated, No murmur, Good pulses equal in all extremities, Normal peripheral perfusion, No edema. Gastrointestinal: Soft, Non-tender, Non-distended, Normal bowel sounds, No organomegaly. Musculoskeletal: Normal range of motion, Normal strength, No tenderness, No swelling, No deformity, Normal gait. Integumentary: Warm, Dry, [place]ckard, Intact. Neurologic: Alert, Oriented, Normal sensory, Normal motor function, No focal defects, Cranial Nerves II-XII are grossly intact, Normal deep tendon reflexes. Psychiatric: Cooperative, Appropriate mood & affect, Normal judgment. Office Procedures Flu Questionnaire Does the patient have a severe egg allergy?: No Does the patient have severe life threatening allergies?: No Does the patient have a fever or illness today?: No Has the patient ever had Guillain-[place] Syndrome?: No Has the patient ever had any past reaction to a flu shot?: No Immunizations Fluzone High-Dose (PF) 180 mcg/0.5 mL intramuscular syringe Performing Provider: Francisco Costello MD Performing Location: [facility] Adult Primary [facility]-10 HD Administered by: Francisco Costello MD on 01/15/25 15:07 Dose Route Admin Location Dispensed Lot Number Expiration Date [facility] Electronic News G[employer] Editor 0.5 mL IM Left Deltoid 0.5 mL [id number] 07/13/25 89152-725-49 [employer] Total Dispensed Waste 0.5 mL 0 % VIS Given Date VIS Provided VIS Publication Date 01/15/25 Single Vaccine 24 Eligibility Eligibility Date Funding Source Not [facility] Eligible 01/15/25 Private Coding Level of Care Code Est Pt Level 4 (69606) Est Pt Prev Care >65y(99485) Diagnoses Anxiety F41.9 Primary hypertension I10 Hypertension type: primary hypertension Mixed hyperlipidemia E78.2 Fibromyalgia M79.7 Leg cramps R25.2 Annual physical exam Z00.00 Comment 90882-27 Assessment & Plan Assessment & Plan (1) Anxiety: Comment: - The patient's use of as-needed clonazepam will be discontinued due to associated risks including falls, dementia, and depression. - She will be started on buspirone 5 mg twice daily as a maintenance therapy to treat anxiety. - She will continue her current dose of paroxetine 20 mg. A follow-up is scheduled in 4 months to assess her response to the new medication regimen. Code(s): F41.9 - Anxiety disorder, unspecified Category: Medical (2) HTN (hypertension): Comment: - The patient's blood pressure is well-controlled at 128/80 mmHg. - She will continue her current medication, diltiazem 120 mg. Code(s): I10 - Essential (primary) hypertension Category: Medical Qualifiers: Hypertension type: primary hypertension Qualified Code(s): I10 - Essential (primary) hypertension (3) Mixed hyperlipidemia: Comment: - The patient will continue atorvastatin 40 mg. A lipid panel has been ordered to monitor her cholesterol levels. Code(s): E78.2 - Mixed hyperlipidemia Category: Medical (4) Fibromyalgia: Comment: - Pain is managed with as-needed acetaminophen 1000 mg. - The patient is encouraged to continue staying active with low-impact exercises like ting chi and kayaking to manage symptoms. Code(s): M79.7 - Fibromyalgia Category: Medical (5) Leg cramps: Comment: - Reassurance was provided as physical exam was unremarkable. - The patient was advised to ensure adequate hydration and electrolyte intake. - She can continue her current rssc-hol-iljmxib remedy if she finds it helpful. Code(s): R25.2 - Cramp and spasm Category: Medical (6) Annual physical exam: Comment: - Administered an influenza vaccine during the visit. - A comprehensive set of labs was ordered, including vitamin D, thyroid function tests, syphilis screening, urinalysis, cholesterol, HIV status, hepatitis status, and blood sugar. - A bone density scan has been ordered for osteoporosis screening. - The patient was advised to proceed with her scheduled mammogram in May and ensure results are sent to the office. - She remains up-to-date on her colonoscopy and Pap smear. - Follow-up is scheduled in 4 months. Code(s): Z00.00 - Encounter for general adult medical examination without abnormal findings Category: Medical Plan: Health Maintenance: - Mammogram: Scheduled for May; advised to have results faxed to the office. - Pap smear: Up-to-date, with the next one scheduled for April. - Colonoscopy: Up-to-date. - Osteoporosis Screening: A bone density scan has been ordered. - Vaccinations: Influenza vaccine administered during the visit. - Lifestyle: The patient is a non-smoker. - She was encouraged to continue her current physical activities, including Ting Chi and kayaking. - Laboratory Screening: Ordered labs including vitamin D, thyroid function, syphilis, urinalysis, lipid panel, HIV, hepatitis status, blood sugar, and electrolytes. Patient was informed and verbally consented to the use of an ambient scribe for clinic note documentation during this visit. Vital signs reviewed. Comprehensive history, review of systems, and physical exam completed. Medications, allergies, and problem list reviewed and updated. Counseling provided on nutrition, regular exercise, sleep hygiene, and moderation of alcohol use. Discussed age-appropriate screenings (mammogram, colonoscopy, Pap, bone density) and immunizations (flu, COVID, shingles, Tdap). Screened for depression, fall risk, and home safety; no current concerns. Discussed stress management, dental and vision care, and importance of ongoing preventive follow-up. Routine labs ordered for metabolic and lipid screening. Patient educated on healthy lifestyle and agrees with the plan. Plan I discussed the patient's current medications and chronic conditions. I explained the rationale for discontinuing clonazepam, citing evidence of long-term risks such as increased falls, dementia, and depression. I introduced buspirone as a safer, more effective maintenance therapy for her anxiety and explained it should be taken twice daily rather than as needed. We reviewed her health maintenance status, and I ordered a bone density scan to assess for osteoporosis, explaining that it helps protect against future fractures. I also ordered comprehensive lab work. The patient agreed to receive her annual flu shot during the visit, and I advised her that a heavy feeling in the arm is a common side effect this year. I addressed her concern about leg cramps, reassuring her that the physical exam was normal and advising her to maintain hydration and electrolyte balance. I encouraged her to continue her active lifestyle with activities like Ting Chi and kayaking but cautioned against risky behaviors like using hoverboards and eating hard pretzels, given her history. I explained that I will communicate lab results via the patient portal and that she should schedule a follow-up appointment in four months to review her progress on the new anxiety medication. Orders: Orders XR DEXA axial skeleton Today M81.0 - Age-related osteoporosis without current pathological fracture Hemoglobin A1c Today Z00.00 - Encounter for general adult medical examination without abnormal findings Hepatitis A,B,C Profile Today Z00.00 - Encounter for general adult medical examination without abnormal findings Lipid Panel Today Z00.00 - Encounter for general adult medical examination without abnormal findings Vitamin D 25-OH Total Today Z00.00 - Encounter for general adult medical examination without abnormal findings Complete Blood Count Auto Diff Today Z00.00 - Encounter for general adult medical examination without abnormal findings Comprehensive Met. Panel Today Z00.00 - Encounter for general adult medical examination without abnormal findings HIV Ab/Ag Today Z00.00 - Encounter for general adult medical examination without abnormal findings Microalbumin, Random (w Creat) Today Z00.00 - Encounter for general adult medical examination without abnormal findings Syphilis Screen Today Z00.00 - Encounter for general adult medical examination without abnormal findings TSH reflex Free T4 Today Z00.00 - Encounter for general adult medical examination without abnormal findings Influenza [id number] High Dose Immunization Today Z23 - Encounter for immunization Medications: New buspirone 5 mg PO BID 90 tabs 1RF Patient Instructions: - Stop taking clonazepam for anxiety. - Start taking Buspirone 5 mg twice a day, every day. This is a new medication to help manage your anxiety on a regular basis. - Continue taking your other prescribed medications, including atorvastatin, Tylenol as needed, diltiazem, and paroxetine. - You received your flu shot today. It is common for your arm to feel very heavy or sore afterward. - Please go to the hospital lab to have your blood drawn. No paperwork is needed. We have ordered several tests to check your overall health. - Our office has ordered a bone density scan for you. Someone will call you to schedule this appointment. - Please make sure to ask the center where you have your mammogram in May to fax the results to our office. - For leg cramps, continue to stay well-hydrated. You can continue taking the dissolving tablets under your tongue if they help. - Continue to stay active with your exercises like Ting Chi and kayaking. Do not slow down. - For your safety, please avoid eating hard pretzels and do not use hoverboards. - I will message you through the patient portal with your lab results or if any changes are needed. You can also message me through the portal. - Please schedule a follow-up appointment in four months.
[2025-01-15 14:46] VITALS: BP 128/80; PULSE 72; RESP 18; TEMP 36.6; O2SAT 97; BMI 33.5
== END 2025-01-15 15:11 | disposition home or self-care (01) ==
PROVIDERS: PCP Student in an Organized Health Care Education/Training Program; Visit Provider Student in an Organized Health Care Education/Training Program
DX: Z00.00 Encounter for general adult medical examination without abnormal findings (principal); F41.9 Anxiety disorder, unspecified; I10 Essential (primary) hypertension; E78.2 Mixed hyperlipidemia; M79.7 Fibromyalgia; R25.2 Cramp and spasm; Z23 Encounter for immunization

== ENCOUNTER → 2025-01-15 14:31 | Outpatient (BNVA) | payer MEDICARE, SELFPAY | PROVIDERS: PCP Internal Medicine; Visit Provider Student in an Organized Health Care Education/Training Program | DX: Z00.00 Encounter for general adult medical examination without abnormal findings (principal); F41.9 Anxiety disorder, unspecified; I10 Essential (primary) hypertension; E78.2 Mixed hyperlipidemia; M79.7 Fibromyalgia; R25.2 Cramp and spasm; Z79.899 Other long term (current) drug therapy; Z23 Encounter for immunization | CPT/HCPCS: 90471; 90662; 99212; 99397 ==

== ENCOUNTER 2025-01-16 11:01 | Outpatient (REF) | payer MEDICARE, SELFPAY ==
[2025-01-16 13:04] LABS: MANUAL DIFF FLAG NO
[2025-01-16 13:22] LABS: Hematocrit 43.0 % (37.0-47.0); Hemoglobin 14.2 g/dl (12.0-16.0); Imm Gran Abs Auto 0.01 X10*3/uL (0.00-0.03); Imm Gran Pct Auto 0.3 % (0.0-0.4); Lymphocytes Absolute Auto 0.7 X10*3/uL (1.2-4.9); Mean Corpuscular HGB Conc 33.0 g/dl (31.0-35.0); Mean Corpuscular Hemoglobin 31.2 pg (27.0-33.0); Mean Corpuscular Volume 94.5 fL (80.0-98.0); NRBC Abs Auto 0.000 X10*3/uL (0.0-0.012); NRBC Pct Auto 0.0 /100WBC (0.0-0.2); Platelet Count 254 X10*3/uL (160-400); Red Blood Count 4.55 X10*6/uL (4.20-5.50); White Blood Count 4.0 X10*3/uL (4.8-10.8)
[2025-01-16 14:17] LABS: Microalbum/Creatinine Ratio Ur 6.8 ug/mg cr (<30)
[2025-01-16 14:34] LABS: Alanine Aminotransferase 29 U/L (0-31); Albumin Level 4.3 g/dL (3.5-5.0); Alkaline Phosphatase 72 U/L (39-117); Anion Gap 11 (12-20); Aspartate Amino Transferase 24 U/L (5-31); Blood Urea Nitrogen 15 mg/dL (9-16); Calcium 9.5 mg/dL (8.4-10.2); Carbon Dioxide 29 mmol/L (22-29); Chloride 108 mmol/L (96-108); Cholesterol 175 mg/dL (<200); Estimated Glomerular Filt Rate > 60; HDL Cholesterol 59 mg/dL (>40); Potassium 4.8 mmol/L (3.3-5.1); Sodium 143 mmol/L (135-145); Total Protein 7.2 g/dL (6.5-8.0); Triglycerides 93 mg/dL (<150)
[2025-01-17 08:34] LABS: Syphilis Screen Nonreactive (Nonreactive)
[2025-01-17 08:44] LABS: HBS Num1 0.00 mIU/mL (0-7.99); HBc Num1 0.06 S/CO (0.00-0.79); HBsAGNum1 0.35 S/CO (0.00-0.99); HIV Num 1 0.05 S/CO (0.00-0.99); Hepatitis A Antibody IgM 0.16 Index (0-0.79); Hepatitis B Surface Antigen Negative (Negative); ~HepC Num1 0.11 S/CO (0.00-0.79); ~Hepatitis A Antibody IgM Nonreactive (Nonreactive); ~Hepatitis B Surface Antibody NONREACTIVE (Nonreactive); ~Hepatitis C Antibody Nonreactive (Nonreactive)
== END 2025-01-16 11:02 | disposition home or self-care (01) ==
LOC: HO.HMGCLDS 11:01
PROVIDERS: PCP Student in an Organized Health Care Education/Training Program; Visit Provider Student in an Organized Health Care Education/Training Program
DX: Z00.00 Encounter for general adult medical examination without abnormal findings (principal); Z11.4 Encounter for screening for human immunodeficiency virus [HIV]; Z01.84 Encounter for antibody response examination; Z13.29 Encounter for screening for other suspected endocrine disorder; Z13.0 Encounter for screening for diseases of the blood and blood-forming organs and certain disorders involving the immune mechanism; Z13.1 Encounter for screening for diabetes mellitus; Z13.6 Encounter for screening for cardiovascular disorders
CPT/HCPCS: 36415; 80053; 80061; 82043; 82306; 82570; 83036; 84443; 85025; 86704; 86706; 86709; 86780; 86803; 87340; 87389

== ENCOUNTER 2025-02-09 11:06 | Outpatient (REF) | payer MEDICARE, SELFPAY ==
--- NOTE | ~2025-02-09 | MM_ITS ---
EXAMINATION: DXA BONE DENSITY AXIAL HISTORY: M81.0 - Age-related osteoporosis without current pathological fracture TECHNIQUE: [employer] Dual energy absorptiometry (DEXA) of the lumbar spine, total left hip, and femoral neck was performed. COMPARISON: Comparison is made with the prior examination dated 11/29/2018. FINDINGS: The bone mineral density of the lumbar spine is 1.198 g/cm2, corresponding to a T-score of 0.3, and a Z-score of 1.2. This is indicative of normal bone mineral density. This represents a BMD change of 10.5% compared to the prior exam. This is statistically significant. The bone mineral density of the left total hip is 0.815 g/cm2, corresponding to a T-score of -1.5, and a Z-score of -0.6. This is indicative of osteopenia. This represents a BMD change of -3.4% compared to the prior exam. This is not statistically significant. The bone mineral density of the left femoral neck is 0.791 g/cm2, corresponding to a T-score of -1.8, and a Z-score of -0.6. This is indicative of osteopenia. This represents a BMD change of -3.8% compared to the prior exam. FRACTURE RISK: The FRAX index suggests a ten year probability of major osteoporotic fracture of 16.3%, and of hip fracture 2.7%. MM/XR DEXA axial skeleton IMPRESSION: Based on bone mineral density, and according to World Health Organization (WHO) criteria, the diagnosis is consistent with osteopenia. Statistically, 68% of repeat scans fall within 1 SD (+/- 0.010 g/cm2 for AP spine L1-L4) and 1 SD (+/- 0.012 g/cm2 for femur total) FRAX is a trademark of the [employer] [place] for Metabolic Bone Disease, a World Health Organization (WHO) Collaborating Center. Electronically signed by: Yan Melo MD 02/09/2025 11:55 AM [facility]
--- OUTSIDE RECORDS SUMMARY | 2025-02-09 12:57 | XMS_ITS | Clinical Summary ---
Author Organization [address] [address] Phone Care Team Providers Care Dual Rate Supervisor Name Role Phone Oscar Ma MD Primary [...] file Medical Devices Not on file Insurance [facility] EPO [place] E[place] [facility] PPO EPO [facility] PPO EPO [facility] PPO EPO [place] [employer] [employer] E[place] Care Teams Dual Rate Supervisor Relationship Specialty Start Date End Date Oscar Ma MD [address] [place] [address] [place] [id number] PCP - General Internal Medicine 05/01/17 Additional Source Comments The information contained in this document represents components of the legal health record. It is not the complete legal health record.[facility]
--- OUTSIDE RECORDS SUMMARY | 2025-02-09 12:57 | XMS_ITS | Patient Health Record ---
Author Organization [facility] Address [address] [place] [address] Care Team Providers Care Substation Operator Apprentice Name Role Phone Mei Drake Primary Care Provider Elvia Delgadillo Unavailable [phone] Allergies No Known Allergies Reason For Referral [...] Notes Problem Plantar fasciitis of right foot ([id number] 01) Plantar fasciitis of right foot (M72.2) Active confirmed Problem Interstitial myositis (76431121) Interstitial myositis of right foot (M60.171) Active confirmed Vital Signs Blood pressure diastolic 76 mm Hg 11/26/2024 Height 5ft 6in in 11/26/2024 Blood pressure systolic 118 mm Hg 11/26/2024 Weight 196 lbs 11/26/2024 BMI 31.63 kg/m2 11/26/2024 Encounters Encounter Location Date Provider Diagnosis [address] [address] 09/09/2024 Elvia Keane Pain in right foot M79.671 ; Calcaneal spur, right foot M77.31 ; Plantar fasciitis of right foot M72.2 ; Interstitial myositis of right foot M60.171 and Bursitis of right foot M77.[address] [address] 11/26/2024 Elvia Keane Calcaneal spur, righ t foot M77.31 ; Plantar fasciitis of right foot M72.2 ; Pain in right foot M79.671 ; Interstitial myositis of right foot M60.171 and Bursitis of right foot M77.[address] [address] 07/21/2024 Elvia Keane [address] [address] 09/03/2024 Elvia Keane [address] [address] 11/26/2024 Elvia Keane Assessments Encounter Date Diagnosis [...] Date Coverage End Date [employer] Medicare [id number] [address] [address] [place] [address] [id number] Mandeep Jerome Spouse - patient is the spouse of the insured Medical (General) History Medical History History ICD Code Arthritis Back pain Back,Hip,and Knee pain Cataracts Depression Diverticulosis Fibromyalgia Glaucoma Headaches Sciatica Raynauds syndrome Measles Mumps Chicken pox Joint implants/screws Transfusions Cholesterol Reflux Anxiety Broken bones High Blood Pressure Neuropathy raynauds disease Bone implants/screws costroconditis Surgical History Surgery Date(Month/Year) right knee replacement [phone] 3/20 09 triple spinal fusion 03/1997 thorasic outlet 1985 femur 2019 low back surgery 1997 [facility] Hand Surgery 2022 cataract surgery 08/06
--- OUTSIDE RECORDS SUMMARY | 2025-02-09 12:57 | XMS_ITS | Encounter Summary ---
Author Organization [facility] Address [address] [place] [address] Phone Care Team Providers Care Product Marketing Programs Manager Name Role Phone Oscar Ma MD Primary Care Provider Encounter Details Date Type Department Care Team (Late st Contact Info) Description 05/01/2017 Ancillary Orders [facility] [address] [address] Rg [place] [address] [place] [id number] [email or web address] Lumbar stenosis with neurogenic claudication; [...] status documented in this encounter Care Teams Product Marketing Programs Manager Relationship Specialty Start Date End Date Oscar Ma MD [address] [place] [address] Dr Walsh, [place]EL [address] PCP - General Internal Medicine 05/01/17 documented as of this encounter Additional Source Comments The information contained in this document represents components of the legal health record. It is not the complete legal health record.[facility]
== END 2025-02-09 11:07 ==
LOC: HO.MAMMO 11:06
PROVIDERS: PCP Student in an Organized Health Care Education/Training Program; Visit Provider Student in an Organized Health Care Education/Training Program
DX: M81.0 Age-related osteoporosis without current pathological fracture (principal)
CPT/HCPCS: 77080

== ENCOUNTER → 2025-02-09 11:30 | Outpatient (BNV) | payer MEDICARE, SELFPAY | PROVIDERS: PCP Student in an Organized Health Care Education/Training Program; Visit Provider Radiology Diagnostic Radiology | DX: E28.39 Other primary ovarian failure (principal) | CPT/HCPCS: 77080 ==